=== PATIENT | female | born 1990 | race Caucasian/White ===

== ENCOUNTER 2016-06-19 17:45 | Emergency (ER) | payer MEDICARE, OTHER ==
[~2016-06-19] VITALS: Ht 154.9 cm; Wt 51.7 kg
[~2016-06-19 17:45] MED LIST: AZIT250T PO; GUAI120L35 PO
[2016-06-19 18:01] VITALS: BP 119/75
--- NOTE | 2016-06-19 18:45 | PHYS DOC ---
Past Medical History Past Medical History: GERD, Other Additional Past Medical Histor: ovarian cyst, cyst on spleen Past Surgical History: Other Additional Past Surgical Histo: left bone reconstruction; tubes in ears Additional Information: 1 CIGARETTE A DAY Alcohol Use: None Drug Use: None Adult General Chief Complaint Chief Complaint: SORE THROAT [facility] HPI Patient is a 26 year old female presents to emergency department with a sudden onset of nausea vomiting with a sore throat bilateral ear pain in which patient also states she's had a fever. She states that she did go to work today and was sent home. She states that she has vomited once. Patient states that she has not received the influenza vaccination for 2016. Patient also states that she has not taken anything for generalized body aches and discomfort or fever. She states her last menstrual period was last week. Review of Systems Review of Systems Constitutional: hx fever Eyes: Denies change in visual acuity, redness, or eye pain [] HENT: Denies nasal congestion C/o sore throat [] Respiratory: cough or shortness of breath [] Cardiovascular: No additional information not addressed in HPI [] GI: Denies abdominal pain, C/o nausea, vomiting, denies bloody stools or diarrhea [] : Denies dysuria or hematuria [] Musculoskeletal: Denies back pain or joint pain [] Integument: Denies rash or skin lesions [] Neurologic: Denies headache, focal weakness or sensory changes [] Current Medications Current Medications Current Medications Medications (Trade) Dose Ordered Sig/Deborah Start Time Stop Time Status Last Admin Dose Admin Ibuprofen (Motrin) 400 mg STK-MED ONCE 06/19/16 18:54 06/19/16 18:55 DC Ondansetron HCl (Zofran Odt) 4 mg 1X ONCE 06/19/16 19:00 06/19/16 19:01 DC 06/19/16 18:57 4 MG Allergies Allergies Allergies Coded Allergies Type Severity Reaction Last Updated Verified Sulfa (Sulfonamide Antibiotics) Allergy Intermediate hives 08/07/13 Yes Physical Exam Physical Exam Constitutional: Well developed, well nourished, no acute distress, non-toxic appearance. [] HENT: Normocephalic, atraumatic, bilateral external ears normal, oropharynx moist, no oral exudates, nose normal. Bilateral tympanic membranes appear to be normal. Throat with erythematous with drainage noted in the back patient with no tonsils noted. No uvula deviation noted. Patient with frontal and maxillary sinus tenderness. Eyes: PERRLA, EOMI, conjunctiva normal, no discharge. [] Neck: Normal range of motion, no tenderness, supple, no stridor. [] Cardiovascular:Heart rate regular rhythm, no murmur [] Lungs & Thorax: Bilateral breath sounds clear to auscultation [] Skin: Warm, dry, no erythema, no rash. [] Back: No tenderness Extremities: No tenderness, no cyanosis, no clubbing, ROM intact, no edema. [] Neurologic: Alert and oriented X 3, normal motor function, normal sensory function, no focal deficits noted. [] Psychologic: Affect normal, judgement normal, mood normal. [] Current Patient Data Vital Signs Vital Signs Date Time Temp Pulse Resp B/P Pulse Ox O2 Delivery O2 Flow Rate FiO2 06/19/16 18:01 96.4 112 24 119/75 100 Room Air 96.4 Lab Values Laboratory Tests Test 06/19/16 18:45 Influenza Type A Antigen Negative (NEGATIVE) Influenza Type B Antigen Negative (NEGATIVE) EKG EKG [] Radiology/Procedures Radiology/Procedures [] Course & Med Decision Making Course & Med Decision Making Pertinent Labs and Imaging studies reviewed. (See chart for details) Rapid Strep at this time is negative. Patient will be provided with an here in the emergency department ibuprofen as well. Influenza is pending at this time. She was provided with Zofran here in the emergency department and ibuprofen. She states that her nausea and vomiting seems to be a little better. She still complains of sinus pressure. She will be discharged home with Augmentin as well as Zofran. Recommended Sudafed to help with the sinus pressure also recommended Mucinex DM to help with the pressure as well to get everything draining. Also recommended plenty of fluids. Since symptoms to return back to emergency department as been provided. Patient agrees with discharge instructions treatment regimens and follow-up recommendations. [] Dragon Disclaimer Dragon Disclaimer This electronic medical record was generated, in whole or in part, using a voice recognition dictation system. Departure Departure Impression: Primary Impression: Sinusitis Additional Impression: Vomiting Disposition: HOME, SELF-CARE Condition: STABLE Referrals: NANDO CORDERO MD (PCP) Patient Instructions: Clear Liquid Diet, [id number], Nausea and Vomiting, [id number]-[id number], Sinusitis, [id number] Additional Instructions: Your influenza swabs were negative. Your provided with Zofran here in the emergency department for your nausea vomiting. Your being treated for sinusitis as well as nausea vomiting. Medications as prescribed. Tylenol or ibuprofen for fever chills or generalized body aches and discomfort. Sudafed to help with sinus pressure. Take this as directed by self propelled mining machine operator. Mucinex DM will also help with relieving some of the pressure feeling. Drink plenty of fluids Clear liquid diet for the next 24 hours. Follow-up primary care physician next 3-5 days. Return back to emergency prior signs symptoms of become worse. Scripts Amoxicillin/Potassium Clav (Augmentin 875-125 Tablet)1 Each Tablet1 Tab PO BID # 20 TAB Prov:ARCADIO PASTOR APRN 06/19/16 Ondansetron (Zofran Odt)4 Mg Tab.rapdis1 Tab SL Q8HRS #10 TAB Prov:ARCADIO APSTOR APRN 06/19/16 Problem Qualifiers ARCADIO PASTOR APRN Jun 19, 2016 18:45
[2016-06-19] MEDS ORDERED: IBUPROFEN 400 MG TABLET. PO ONE (18:54)
[2016-06-19] MEDS ORDERED: IBUPROFEN 800 MG TABLET. PO ONE (19:00)
[2016-06-19] MEDS ORDERED: ONDANSETRON ODT 4 MG TAB.RAPDIS. PO ONE (19:00)
[2016-06-19 19:11] LABS: OBC FLU VALID
[2016-06-19] MEDS ORDERED: ONDA4TAB10 SL (19:46)
[2016-06-19] MEDS ORDERED: AMOX1TAB61 PO (19:46)
[2016-06-20 07:38] LABS: NEGATIVE OBC STREP NEG; POSITIVE OBC STREP POS
== END 2016-06-19 19:51 | disposition home or self-care (01) ==
LOC: ER 17:45
DX: J32.1 Chronic frontal sinusitis (principal); J32.0 Chronic maxillary sinusitis; R11.2 Nausea with vomiting, unspecified; H92.03 Otalgia, bilateral; K21.9 Gastro-esophageal reflux disease without esophagitis; F17.210 Nicotine dependence, cigarettes, uncomplicated; Z88.2 Allergy status to sulfonamides
CPT/HCPCS: 87804; 87880; 99284; Q0162; 87070

== ENCOUNTER 2016-09-02 11:26 | Emergency (ER) | payer MEDICARE, OTHER ==
[~2016-09-02] VITALS: Ht 154.9 cm; Wt 54.4 kg
[~2016-09-02 11:26] MED LIST changes: +AMOX1TAB61 PO; +ONDA4TAB10 SL
[2016-09-02 12:56] VITALS: BP 113/71
[2016-09-02] MEDS ORDERED: IV NORMAL SALINE 1000ML BAG 1,620 ML IV SCH (12:58)
[2016-09-02] MEDS ORDERED: ACETAMINOPHEN 500 MG TABLET PO ONE (13:00)
[2016-09-02] MEDS ORDERED: IBUPROFEN 800 MG TABLET. PO ONE (13:00)
[2016-09-02 13:35] LABS: BASO % 0 % (0-3); EOS % 1 % (0-3); HEMOGLOBIN 13.7 g/dL (12.0-15.5); LYMPH # 0.8 x10^3/uL (1.0-4.8); LYMPH % 7 % (24-48); MEAN CORPUSCULAR HEMOGLOBIN 32 pg (25-35); MEAN CORPUSCULAR HGB CONC 34 g/dL (31-37); MEAN CORPUSCULAR VOLUME 93 fL (79-100); MONO % 16 % (0-9); NEUT % 76 % (31-73); PLATELET COUNT 215 x10^3/uL (140-400); RED BLOOD COUNT 4.31 x10^6/uL (3.50-5.40); RED CELL DISTRIBUTION WIDTH 12.1 % (11.5-14.5); WHITE BLOOD COUNT 10.3 x10^3/uL (4.0-11.0)
[2016-09-02 13:45] LABS: CALCIUM 9.1 mg/dL (8.5-10.1); CREATININE 0.6 mg/dL (0.6-1.0); GFR 120.8; POTASSIUM 4.4 mmol/L (3.5-5.1)
[2016-09-02 13:50] LABS: ALBUMIN/GLOBULIN RATIO 0.9 (1.0-1.7); TOTAL BILIRUBIN 0.8 mg/dL (0.2-1.0); TOTAL PROTEIN 8.3 g/dL (6.4-8.2)
[2016-09-02 13:57] LABS: NEGATIVE OBC MONO NEG; POSITIVE OBC MONO POS
[2016-09-02] MEDS ORDERED: PRED50TA PO (15:32)
--- NOTE | 2016-09-02 15:32 | PHYS DOC ---
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 Patient states since 2 AM this morning she's had sore throat, bilateral ear pain, generalized body aches including migraine headache and back pain. Patient denies any chance she is . Denies any coughing or congestion. Review of Systems Review of Systems Constitutional: Body aches Eyes: Denies change in visual acuity, redness, or eye pain [] HENT: Bilateral ear pain and sore throat [] Respiratory: Denies cough or shortness of breath [] Cardiovascular: No additional information not addressed in HPI [] GI: Denies abdominal pain, nausea, vomiting, bloody stools or diarrhea [] : Denies dysuria or hematuria [] Musculoskeletal: back pain Integument: Denies rash or skin lesions [] Neurologic: Denies headache, focal weakness or sensory changes [] Endocrine: Denies polyuria or polydipsia [] Current Medications Current Medications Current Medications Medications (Trade) Dose Ordered Sig/Deborah Start Time Stop Time Status Last Admin Dose Admin Acetaminophen (Tylenol) 1,000 mg 1X ONCE 09/02/16 13:00 09/02/16 13:06 DC 09/02/16 14:16 1,000 MG Ibuprofen (Motrin) 800 mg 1X ONCE 09/02/16 13:00 09/02/16 13:06 DC 09/02/16 14:16 800 MG Sodium Chloride 1,620 ml @ 1,620 mls/hr Q1H 09/02/16 12:58 09/02/16 13:57 DC 09/02/16 14:17 1,620 MLS/HR Allergies Allergies Allergies Coded Allergies Type Severity Reaction Last Updated Verified Sulfa (Sulfonamide Antibiotics) Allergy Intermediate hives 08/07/13 Yes Physical Exam Physical Exam Constitutional: Well developed, well nourished, no acute distress, non-toxic appearance. [] HENT: Normocephalic, atraumatic, bilateral external ears normal, oropharynx moist, no oral exudates, nose normal. [] posterior pharynx with mild erythema +1 posterior cervical adenopathy Eyes: PERRLA, EOMI, conjunctiva normal, no discharge. [] Neck: Normal range of motion, no tenderness, supple, no stridor. [] Cardiovascular:Heart rate regular rhythm, no murmur [] Lungs & Thorax: Bilateral breath sounds clear to auscultation [] Abdomen: Bowel sounds normal, soft, no tenderness, no masses, no pulsatile masses. [] Skin: Warm, dry, no erythema, no rash. [] Back: No tenderness, no CVA tenderness. [] Extremities: No tenderness, no cyanosis, no clubbing, ROM intact, no edema. [] Neurologic: Alert and oriented X 3, normal motor function, normal sensory function, no focal deficits noted. [] Psychologic: Affect normal, judgement normal, mood normal. [] Current Patient Data Vital Signs Vital Signs Date Time Temp Pulse Resp B/P (MAP) Pulse Ox O2 Delivery O2 Flow Rate FiO2 09/02/16 15:00 98.5 98.5 09/02/16 12:56 100 22 113/71 (85) 100 Room Air Lab Values Laboratory Tests Test 09/02/16 13:13 White Blood Count 10.3 x10^3/uL (4.0-11.0) Red Blood Count 4.31 x10^6/uL (3.50-5.40) Hemoglobin 13.7 g/dL (12.0-15.5) Hematocrit 40.0 % (36.0-47.0) Mean Corpuscular Volume 93 fL (79-100) Mean Corpuscular Hemoglobin 32 pg (25-35) Mean Corpuscular Hemoglobin Concent 34 g/dL (31-37) Red Cell Distribution Width 12.1 % (11.5-14.5) Platelet Count 215 x10^3/uL (140-400) Neutrophils (%) (Auto) 76 % (31-73) H Lymphocytes (%) (Auto) 7 % (24-48) L Monocytes (%) (Auto) 16 % (0-9) H Eosinophils (%) (Auto) 1 % (0-3) Basophils (%) (Auto) 0 % (0-3) Neutrophils # (Auto) 7.8 x10^3uL (1.8-7.7) H Lymphocytes # (Auto) 0.8 x10^3/uL (1.0-4.8) L Monocytes # (Auto) 1.6 x10^3/uL (0.0-1.1) H Eosinophils # (Auto) 0.1 x10^3/uL (0.0-0.7) Basophils # (Auto) 0.0 x10^3/uL (0.0-0.2) Sodium Level 137 mmol/L (136-145) Potassium Level 4.4 mmol/L (3.5-5.1) Chloride Level 99 mmol/L (98-107) Carbon Dioxide Level 27 mmol/L (21-32) Anion Gap 11 (6-14) Blood Urea Nitrogen 3 mg/dL (7-20) L Creatinine 0.6 mg/dL (0.6-1.0) Estimated GFR (Cockcroft-Gault) 120.8 BUN/Creatinine Ratio 5 (6-20) L Glucose Level 85 mg/dL (70-99) Lactic Acid Level 0.6 mmol/L (0.4-2.0) Calcium Level 9.1 mg/dL (8.5-10.1) Total Bilirubin 0.8 mg/dL (0.2-1.0) Aspartate Amino Transferase (AST) 19 U/L (15-37) Alanine Aminotransferase (ALT) 19 U/L (14-59) Alkaline Phosphatase 71 U/L (46-116) Total Protein 8.3 g/dL (6.4-8.2) H Albumin 4.0 g/dL (3.4-5.0) Albumin/Globulin Ratio 0.9 (1.0-1.7) L Procalcitonin < 0.10 ng/mL (0.00-0.10) Ethyl Alcohol Level < 10 mg/dL (0-10) Heterophil Agglutinins Positive (NEGATIVE) Laboratory Tests 09/02/16 13:13 Laboratory Tests 09/02/16 13:13 EKG EKG [] Radiology/Procedures Radiology/Procedures [] Course & Med Decision Making Course & Med Decision Making Pertinent Labs and Imaging studies reviewed. (See chart for details) Patient is in the ED with multiple complaints including sore throat, ear pain, body aches and backache. Patient had a temperature of 101.4 on arrival to the ED with a blood pressure 113/71 heart rate of 100. She was started on IV fluids. She was given Tylenol and Motrin. Negative rapid strep, positive mononucleosis. CBC no acute findings. BMP with no acute findings. Discharged with prednisone, and ibuprofen. Instructed to take Tylenol/Motrin for pain or fever. Instructed to push fluids. Recommended resting. Instructed patient not participate in any contact sports. Patient is to follow-up with the primary care doctor in one week. Dragon Disclaimer Dragon Disclaimer This electronic medical record was generated, in whole or in part, using a voice recognition dictation system. Departure Departure Impression: Primary Impression: Mononucleosis Additional Impressions: Fever Tachycardia Disposition: HOME, SELF-CARE Condition: STABLE Referrals: NANDO CORDERO MD (PCP) Follow-up with your doctor in 3-7 days Patient Instructions: Fever, Adult, [id number], Infectious Mononucleosis, Viral Pharyngitis Additional Instructions: You tested positive for mononucleosis. Do not participate in any contact sports because this infection can make enlarge your spleen and make it rapture. Take Tylenol Motrin for pain or fever. Push fluids. Follow-up with your doctor in the next 1 week. Come back to the ED symptoms worsen. Scripts Prednisone (PREDNISONE) 50 Mg Tablet 1 TAB PO DAILY, #5 TAB Prov: RJ LEAHY APRN 09/02/16 Problem Qualifiers Additional Impressions: Fever Fever type: unspecified Qualified Codes: R50.9 - Fever, unspecified RJ LEAHY APRN Sep 02, 2016 15:32
[2016-09-03 08:19] LABS: NEGATIVE OBC STREP NEG; POSITIVE OBC STREP POS
== END 2016-09-02 15:48 | disposition home or self-care (01) ==
LOC: ER 11:26
DX: B27.90 Infectious mononucleosis, unspecified without complication (principal); R00.0 Tachycardia, unspecified; H92.03 Otalgia, bilateral; K21.9 Gastro-esophageal reflux disease without esophagitis; G43.909 Migraine, unspecified, not intractable, without status migrainosus; J02.9 Acute pharyngitis, unspecified; Z96.22 Myringotomy tube(s) status; Z88.2 Allergy status to sulfonamides
CPT/HCPCS: 36415; 80053; 80320; 83605; 84145; 85027; 86308; 87040; 87070; 87880; 96360; 99284; J7030; G0480

== ENCOUNTER 2016-09-06 08:57 | Inpatient (IN) | payer MEDICARE, OTHER ==
[~2016-09-06] VITALS: Ht 154.9 cm; Wt 51.3 kg
[~2016-09-06 08:57] MED LIST changes: +PRED50TA PO
--- NOTE | 2016-09-06 09:09 | PHYS DOC ---
Past Medical History Past Medical History: GERD, Migraines, Other Additional Past Medical Histor: ovarian cyst, cyst on spleen Past Surgical History: Other Additional Past Surgical Histo: left bone reconstruction; tubes in ears Alcohol Use: None Drug Use: None Adult General Chief Complaint Chief Complaint: FEVER HPI HPI Patient is a 26 year old female who presents with rate she was just diagnosed with mono to 3 days ago and was discharged on prednisone 50 mg by mouth daily. She presents to ER complaining of sided abdominal pain, decreased appetite and weakness. According to mom she's not want to eat or drink she been running a fever over the last several days. Review of Systems Review of Systems Constitutional: As if her fever Eyes: Denies change in visual acuity, redness, or eye pain [] HENT: Denies nasal congestion or sore throat [] Respiratory: Denies cough or shortness of breath [] Cardiovascular: No additional information not addressed in HPI [] GI: Denies vomiting, bloody stools or diarrhea, positive for abdominal pain, nausea, : Denies dysuria or hematuria [] Musculoskeletal: Denies back pain or joint pain [] Integument: Denies rash or skin lesions [] Neurologic: Denies headache, focal weakness or sensory changes [] Endocrine: Denies polyuria or polydipsia [] Current Medications Current Medications Current Medications Medications (Trade) Dose Ordered Sig/Deborah Start Time Stop Time Status Last Admin Dose Admin Acetaminophen (Tylenol) 1,000 mg 1X ONCE 09/06/16 11:30 09/06/16 11:31 DC 09/06/16 11:18 1,000 MG Info (Do NOT chart on this entry -- for MONITORING) 1 each PRN DAILY PRN 09/06/16 10:00 09/08/16 09:59 Iohexol (Omnipaque 300 Mg/ml) 75 ml 1X ONCE 09/06/16 10:00 09/06/16 10:01 DC 09/06/16 09:56 75 ML Sodium Chloride 1,000 ml @ 1,000 mls/hr 1X ONCE 09/06/16 09:45 09/06/16 10:44 DC 09/06/16 09:45 1,000 MLS/HR Allergies Allergies Allergies Coded Allergies Type Severity Reaction Last Updated Verified Sulfa (Sulfonamide Antibiotics) Allergy Intermediate hives 08/07/13 Yes Physical Exam Physical Exam Constitutional: Well developed, well nourished, no acute distress, non-toxic appearance. [] HENT: Normocephalic, atraumatic, bilateral external ears normal, oropharynx moist, no oral exudates, nose normal. [] Eyes: PERRLA, EOMI, conjunctiva normal, no discharge. [] Neck: Normal range of motion, no tenderness, supple, no stridor. [] Cardiovascular:Heart rate regular rhythm, no murmur [] Lungs & Thorax: Bilateral breath sounds clear to auscultation [] Abdomen: Bowel sounds normal, soft, tender to palpation in the left quadrants without any rebound or guarding, no masses, no pulsatile masses. [] Skin: Warm, dry, no erythema, no rash. [] Back: No tenderness, no CVA tenderness. [] Extremities: No tenderness, no cyanosis, no clubbing, ROM intact, no edema. [] Neurologic: Alert and oriented X 3, normal motor function, normal sensory function, no focal deficits noted. [] Psychologic: Affect normal, judgement normal, mood normal. [] Current Patient Data Vital Signs Vital Signs Date Time Temp Pulse Resp B/P (MAP) Pulse Ox O2 Delivery O2 Flow Rate FiO2 09/06/16 09:31 101.8 54 20 73/39 (50) 98 Room Air 101.8 Lab Values Laboratory Tests Test 09/06/16 08:17 09/06/16 09:13 09/06/16 09:46 POC Urine HCG, Qualitative Hcg negative (Negative) Urine Collection Type Unknown Urine Color [place] Urine Clarity Clear Urine pH 6.0 Urine Specific [place] >=1.030 Urine Protein 30 mg/dL (NEG-TRACE) Urine Glucose (UA) Negative mg/dL (NEG) Urine Ketones (Stick) 40 mg/dL (NEG) Urine Blood Large (NEG) Urine Nitrite Negative (NEG) Urine Bilirubin Small (NEG) Urine Urobilinogen Dipstick 0.2 mg/dL (0.2 mg/dL) Urine Leukocyte Esterase Negative (NEG) Urine RBC 11-20 /HPF (0-2) Urine WBC 0 /HPF (0-4) Urine Squamous Epithelial Cells Mod /LPF Urine Bacteria 0 /HPF (0-FEW) Urine Mucus Marked /LPF White Blood Count 9.8 x10^3/uL (4.0-11.0) Red Blood Count 4.00 x10^6/uL (3.50-5.40) Hemoglobin 12.7 g/dL (12.0-15.5) Hematocrit 37.1 % (36.0-47.0) Mean Corpuscular Volume 93 fL (79-100) Mean Corpuscular Hemoglobin 32 pg (25-35) Mean Corpuscular Hemoglobin Concent 34 g/dL (31-37) Red Cell Distribution Width 12.3 % (11.5-14.5) Platelet Count 212 x10^3/uL (140-400) Neutrophils (%) (Auto) 68 % (31-73) Lymphocytes (%) (Auto) 11 % (24-48) L Monocytes (%) (Auto) 21 % (0-9) H Eosinophils (%) (Auto) 0 % (0-3) Basophils (%) (Auto) 0 % (0-3) Neutrophils # (Auto) 6.7 x10^3uL (1.8-7.7) Lymphocytes # (Auto) 1.0 x10^3/uL (1.0-4.8) Monocytes # (Auto) 2.1 x10^3/uL (0.0-1.1) H Eosinophils # (Auto) 0.0 x10^3/uL (0.0-0.7) Basophils # (Auto) 0.0 x10^3/uL (0.0-0.2) Platelet Estimate Pending Prothrombin Time 13.7 SEC (11.7-14.0) Prothrombin Time INR 1.1 (0.8-1.1) PTT 33 SEC (24-38) Sodium Level 138 mmol/L (136-145) Potassium Level 3.5 mmol/L (3.5-5.1) Chloride Level 100 mmol/L (98-107) Carbon Dioxide Level 33 mmol/L (21-32) H Anion Gap 5 (6-14) L Blood Urea Nitrogen 7 mg/dL (7-20) Creatinine 0.8 mg/dL (0.6-1.0) Estimated GFR (Cockcroft-Gault) 86.7 Glucose Level 90 mg/dL (70-99) Calcium Level 8.5 mg/dL (8.5-10.1) Total Bilirubin 0.3 mg/dL (0.2-1.0) Direct Bilirubin 0.1 mg/dL (0.0-0.2) Aspartate Amino Transferase (AST) 18 U/L (15-37) Alanine Aminotransferase (ALT) 18 U/L (14-59) Alkaline Phosphatase 58 U/L (46-116) Total Protein 7.1 g/dL (6.4-8.2) Albumin 3.1 g/dL (3.4-5.0) L Laboratory Tests 09/06/16 09:46 Laboratory Tests 09/06/16 09:46 EKG EKG [] Radiology/Procedures Radiology/Procedures [place] [id number] IMAGING REPORT Signed PATIENT: MATTHEW CHOI ACCOUNT: [id number] : 1990 LOCATION: ER AGE: 26 SEX: F EXAM STATUS: REG ER ORD. PHYSICIAN: MIGUEL MCMAHON MD REASON: fever PROCEDURE: PORTABLE CHEST 1V Indication: Fever and weakness. Time of exam 0947 hours. Correlation is made with prior study from 03/10/2013 FINDINGS: The heart size is normal. The lungs are clear. No pleural effusion or pneumothorax is identified. The pulmonary vascularity is normal. IMPRESSION: No acute abnormality detected. DICTATED and SIGNED BY: SIRISHA SMITH MD DATE: 09/06/16950 CC: MIGUEL MCMAHON MD; NANDO CORDERO MD ~ [address] [id number] IMAGING REPORT Signed PATIENT: MATTHEW CHOI ACCOUNT: [id number] : 1990 LOCATION: ER AGE: 26 SEX: F EXAM STATUS: REG ER ORD. PHYSICIAN: MIGUEL MCMAHON MD REASON: abd pain PROCEDURE: CT ABD PELV W/ IV CONTRST ONLY CT study of the abdomen and pelvis with contrast Clinical indications: Abdominal pain. Technique: After IV infusion of 75 cc of Omnipaque 300, helical CT scanning of the abdomen and pelvis was performed. No GI contrast was administered. This decreases the sensitivity to detect GI tract pathology. PQRS Compliance Statement: One or more of the following individualized dose reduction techniques were utilized for this examination: 1. Automated exposure control 2. Adjustment of the mA and/or kV according to patient size 3. Use of iterative reconstruction technique Comparison: August 07, 2013. Findings: The liver is normal. The spleen is not abnormally enlarged. Again seen is a hypodense nodule of the lateral aspect of the spleen which has not changed significantly in size. This may represent a hemangioma. The pancreas and gallbladder are normal. No extrahepatic biliary ductal dilatation is seen. No hydronephrosis or renal mass or hydroureter is seen. Urinary bladder is not distended. No uterine mass or fibroid is seen. The ovaries are not well delineated in this study given the fluid-filled bowel loops. No focal aneurysmal dilatation of the abdominal aorta is seen. No enlarged abdominal or pelvic lymphadenopathy is seen. The appendix is normal. The terminal ileum is unremarkable. No obstructive bowel pattern is evident. No bowel wall thickening is seen. No free air or free fluid or mesenteric inflammatory change is seen. No osteolytic process is seen. No lung base consolidation is seen. IMPRESSION: No acute abnormality of the abdomen or pelvis is evident. Stable hemangioma of the spleen. DICTATED and SIGNED BY: YANY CHAPARRO MD DATE: 09/06/16 1017 CC: MIGUEL MCMAHON MD; NANDO CORDERO MD ~ Impressions: Abdominal pain Mononucleosis Fever Weakness Course & Med Decision Making Course & Med Decision Making Pertinent Labs and Imaging studies reviewed. (See chart for details) She has a fever and received Tylenol, she received IV fluids, CT abdomen pelvis did not show any acute abdomen allergies. She's being admitted for her weakness and rehydration. Interim orders have been written. Dragon Disclaimer Dragon Disclaimer This electronic medical record was generated, in whole or in part, using a voice recognition dictation system. Departure Departure Impression: Primary Impression: Mononucleosis Additional Impression: Fever Admitting Physician: Mazin Hughes Condition: STABLE Referrals: NANDO CORDERO MD (PCP) Problem Qualifiers Additional Impression: Fever Fever type: unspecified Qualified Codes: R50.9 - Fever, unspecified MIGUEL MCMAHON MD Sep 06, 2016 09:09
[2016-09-06 09:37] LABS: BILIRUBIN,URINE SMALL (NEG); GLUCOSE,URINE NEGATIVE (NEG); NITRITE,URINE NEGATIVE (NEG); PROTEIN,URINE 30 mg/dL (NEG-TRACE); UROBILINOGEN,URINE 0.2 mg/dL (0.2 mg/dL)
[2016-09-06] MEDS ORDERED: IV NORMAL SALINE 1000ML BAG 1,000 ML IV ONE (09:45)
--- NOTE | 2016-09-06 09:54 | RAD ---
Indication: Fever and weakness. Time of exam 0947 hours. Correlation is made with prior study from 03/10/2013 FINDINGS: The heart size is normal. The lungs are clear. No pleural effusion or pneumothorax is identified. The pulmonary vascularity is normal. IMPRESSION: No acute abnormality detected.
[2016-09-06 09:55] LABS: BASO % 0 % (0-3); EOS % 0 % (0-3); HEMATOCRIT 37.1 % (36.0-47.0); HEMOGLOBIN 12.7 g/dL (12.0-15.5); LYMPH % 11 % (24-48); MEAN CORPUSCULAR HEMOGLOBIN 32 pg (25-35); MEAN CORPUSCULAR HGB CONC 34 g/dL (31-37); MEAN CORPUSCULAR VOLUME 93 fL (79-100); MONO % 21 % (0-9); NEUT % 68 % (31-73); PLATELET COUNT 212 x10^3/uL (140-400); RED CELL DISTRIBUTION WIDTH 12.3 % (11.5-14.5); WHITE BLOOD COUNT 9.8 x10^3/uL (4.0-11.0)
[2016-09-06 09:56] LABS: BACTERIA,URINE 0 /HPF (0-FEW); SQUAMOUS EPITHELIAL CELL,UR MOD /LPF; WBC,URINE 0 /HPF (0-4)
[2016-09-06] MEDS ORDERED: CONTRAST GIVEN MC PRN (10:00)
[2016-09-06] MEDS ORDERED: IOHEXOL 300 MG/ML 75 ML VIAL IV ONE (10:00)
[2016-09-06 10:02] LABS: CALCIUM 8.5 mg/dL (8.5-10.1); CREATININE 0.8 mg/dL (0.6-1.0); GFR 86.7; POTASSIUM 3.5 mmol/L (3.5-5.1)
[2016-09-06 10:08] LABS: ALBUMIN 3.1 g/dL (3.4-5.0); DIRECT BILIRUBIN 0.1 mg/dL (0.0-0.2); TOTAL BILIRUBIN 0.3 mg/dL (0.2-1.0); TOTAL PROTEIN 7.1 g/dL (6.4-8.2)
[2016-09-06 10:19] LABS: INR 1.1 (0.8-1.1); PROTHROMBIN TIME PATIENT 13.7 SEC (11.7-14.0)
--- NOTE | 2016-09-06 10:44 | RAD ---
CT study of the abdomen and pelvis with contrast Clinical indications: Abdominal pain. Technique: After IV infusion of 75 cc of Omnipaque 300, helical CT scanning of the abdomen and pelvis was performed. No GI contrast was administered. This decreases the sensitivity to detect GI tract pathology. PQRS Compliance Statement: One or more of the following individualized dose reduction techniques were utilized for this examination: 1. Automated exposure control 2. Adjustment of the mA and/or kV according to patient size 3. Use of iterative reconstruction technique Comparison: August 07, 2013. Findings: The liver is normal. The spleen is not abnormally enlarged. Again seen is a hypodense nodule of the lateral aspect of the spleen which has not changed significantly in size. This may represent a hemangioma. The pancreas and gallbladder are normal. No extrahepatic biliary ductal dilatation is seen. No hydronephrosis or renal mass or hydroureter is seen. Urinary bladder is not distended. No uterine mass or fibroid is seen. The ovaries are not well delineated in this study given the fluid-filled bowel loops. No focal aneurysmal dilatation of the abdominal aorta is seen. No enlarged abdominal or pelvic lymphadenopathy is seen. The appendix is normal. The terminal ileum is unremarkable. No obstructive bowel pattern is evident. No bowel wall thickening is seen. No free air or free fluid or mesenteric inflammatory change is seen. No osteolytic process is seen. No lung base consolidation is seen. IMPRESSION: No acute abnormality of the abdomen or pelvis is evident. Stable hemangioma of the spleen.
[2016-09-06] MEDS ORDERED: ACETAMINOPHEN 500 MG TABLET PO ONE (11:30)
[2016-09-06] MEDS ORDERED: IV DEXTROSE 5 %-0.45 % NACL 1,000 ML IV ONE (12:15)
[2016-09-06] MEDS ORDERED: ONDANSETRON PF 4 MG/2 ML VIAL. IV PRN ×2 (12:15→14:15)
[2016-09-06] MEDS ORDERED: fentaNYL PF VIAL 100 MCG/2 ML VIAL IV PRN (12:15)
[2016-09-06 12:32] LABS: PLT ESTIMATE ADEQUATE (ADEQUATE)
[2016-09-06] MEDS ORDERED: hydrALAZINE 20 MG/ML VIAL. IVP PRN (14:15)
[2016-09-06] MEDS ORDERED: BENZOCAINE/MENTHOL LOZENGE. PO PRN (14:15)
[2016-09-06] MEDS ORDERED: MORPHINE SULFATE 2 MG/ML DISP.SYRIN. IV PRN (14:15)
[2016-09-06] MEDS ORDERED: DOCUSATE SODIUM 100 MG CAPSULE. PO PRN (14:15)
--- NOTE | 2016-09-06 14:26 | PDOC1 ---
History and Physical Date of Admission Date of Admission 09/06/16 Identification/Chief Complaint Chief Complaint fever, sore throat, body ache Problems: Source Source: Caregiver, Chart review, Patient History of Present Illness History of Present Illness Patient is a 26 year old female came here for fever, sore throat and body ache for 3-4 days. Pt was here in ER for same reason, fever 102, + mono, neg flu and strep rapid test. She was given prednisone 50mg daily and didnot help. Pt feels cont body ache, hard to swallow food, low appetite, T 101.8 in ER, BP 70s. Past Medical History Cardiovascular: No pertinent hx GI: No pertinent hx Heme/Onc: No pertinent hx Hepatobiliary: No pertinent hx Psych: No pertinent hx Rheumatologic: No pertinent hx Infectious disease: No pertinent hx Renal/: No pertinent hx Endocrine: No pertinent hx Past Surgical History Past Surgical History: No pertinent history Family History Family History: Hypertension, Other Social History Smoke: No ALCOHOL: none Drugs: None Current Problem List Problem List Problems Medical Problems: (1) Fever Status: Acute (2) Mononucleosis Status: Acute Current Medications Current Medications Current Medications Medications (Trade) Dose Ordered Sig/Deborah Start Time Stop Time Status Last Admin Dose Admin Acetaminophen (Tylenol) 1,000 mg 1X ONCE 09/06/16 11:30 09/06/16 11:31 DC 09/06/16 11:18 1,000 MG Dextrose/Sodium Chloride 1,000 ml @ 100 mls/hr 1X ONCE 09/06/16 12:15 09/06/16 22:14 09/06/16 12:15 100 MLS/HR Fentanyl Citrate (Fentanyl 2ml Vial) 50 mcg PRN Q2HR PRN 09/06/16 12:15 09/07/16 12:14 Info (Do NOT chart on this entry -- for MONITORING) 1 each PRN DAILY PRN 09/06/16 10:00 09/08/16 09:59 Iohexol (Omnipaque 300 Mg/ml) 75 ml 1X ONCE 09/06/16 10:00 09/06/16 10:01 DC 09/06/16 09:56 75 ML Ondansetron HCl (Zofran) 4 mg PRN Q8HRS PRN 09/06/16 12:15 09/07/16 12:14 Sodium Chloride 1,000 ml @ 1,000 mls/hr 1X ONCE 09/06/16 09:45 09/06/16 10:44 DC 09/06/16 09:45 1,000 MLS/HR Allergies Allergies Allergies Coded Allergies Type Severity Reaction Last Updated Verified Sulfa (Sulfonamide Antibiotics) Allergy Intermediate hives 08/07/13 Yes ROS Review of System CONSTITUTIONAL: No fever or chills EYES: No recent changes SKIN: No rash or itching CARDIOVASCULAR: No chest pain, syncope, palpitations, or edema RESPIRATORY: No SOB or cough GASTROINTESTINAL: No nausea, vomiting or abdominal pain NEUROLOGICAL: No headaches or weakness ENDOCRINE: No cold or heat intolerance GENITOURINARY: No urgency or frequency of urination MUSCULOSKELETAL: No back pain or joint pain LYMPHATICS: No enlarged lymph nodes PSYCHIATRIC: No anxiety or depression Physical Exam Physical Exam GEN.: No apparent distress. Alert and oriented. HEENT: Head is normocephalic, atraumatic. throat has erythematous tonsil with some white exudates NECK: Supple. LUNGS: Clear to auscultation. HEART: RRR, S1, S2 present. Peripheral pulses intact ABDOMEN: Soft, nontender. Positive bowel sounds. EXTREMITIES: Without any cyanosis. NEUROLOGIC: Normal speech, normal tone PSYCHIATRIC: Normal affect, normal mood. SKIN: No ulcerations Vitals Vitals Vital Signs Date Time Temp Pulse Resp B/P (MAP) Pulse Ox O2 Delivery O2 Flow Rate FiO2 09/06/16 12:18 90 98/53 (68) 09/06/16 09:31 101.8 20 98 Room Air 101.8 Labs Labs Laboratory Tests Test 09/06/16 08:17 09/06/16 09:13 09/06/16 09:46 Bedside Urine HCG, Qualitative Hcg negative (Negative) Urine Collection Type Unknown Urine Color [place]bi Urine Clarity Clear Urine pH 6.0 Urine Specific [place] >=1.030 Urine Protein 30 mg/dL (NEG-TRACE) Urine Glucose (UA) Negative mg/dL (NEG) Urine Ketones (Stick) 40 mg/dL (NEG) Urine Blood Large (NEG) Urine Nitrite Negative (NEG) Urine Bilirubin Small (NEG) Urine Urobilinogen Dipstick 0.2 mg/dL (0.2 mg/dL) Urine Leukocyte Esterase Negative (NEG) Urine RBC 11-20 /HPF (0-2) Urine WBC 0 /HPF (0-4) Urine Squamous Epithelial Cells Mod /LPF Urine Bacteria 0 /HPF (0-FEW) Urine Mucus Marked /LPF White Blood Count 9.8 x10^3/uL (4.0-11.0) Red Blood Count 4.00 x10^6/uL (3.50-5.40) Hemoglobin 12.7 g/dL (12.0-15.5) Hematocrit 37.1 % (36.0-47.0) Mean Corpuscular Volume 93 fL (79-100) Mean Corpuscular Hemoglobin 32 pg (25-35) Mean Corpuscular Hemoglobin Concent 34 g/dL (31-37) Red Cell Distribution Width 12.3 % (11.5-14.5) Platelet Count 212 x10^3/uL (140-400) Neutrophils (%) (Auto) 68 % (31-73) Lymphocytes (%) (Auto) 11 % (24-48) Monocytes (%) (Auto) 21 % (0-9) Eosinophils (%) (Auto) 0 % (0-3) Basophils (%) (Auto) 0 % (0-3) Neutrophils # (Auto) 6.7 x10^3uL (1.8-7.7) Lymphocytes # (Auto) 1.0 x10^3/uL (1.0-4.8) Monocytes # (Auto) 2.1 x10^3/uL (0.0-1.1) Eosinophils # (Auto) 0.0 x10^3/uL (0.0-0.7) Basophils # (Auto) 0.0 x10^3/uL (0.0-0.2) Segmented Neutrophils % 40 % (35-66) Band Neutrophils % 18 % (0-9) Lymphocytes % 21 % (24-48) Monocytes % 21 % (0-10) Platelet Estimate Adequate (ADEQUATE) Prothrombin Time 13.7 SEC (11.7-14.0) Prothromb Time International Ratio 1.1 (0.8-1.1) Activated Partial Thromboplast Time 33 SEC (24-38) Sodium Level 138 mmol/L (136-145) Potassium Level 3.5 mmol/L (3.5-5.1) Chloride Level 100 mmol/L (98-107) Carbon Dioxide Level 33 mmol/L (21-32) Anion Gap 5 (6-14) Blood Urea Nitrogen 7 mg/dL (7-20) Creatinine 0.8 mg/dL (0.6-1.0) Estimated GFR (Cockcroft-Gault) 86.7 Glucose Level 90 mg/dL (70-99) Calcium Level 8.5 mg/dL (8.5-10.1) Total Bilirubin 0.3 mg/dL (0.2-1.0) Direct Bilirubin 0.1 mg/dL (0.0-0.2) Aspartate Amino Transf (AST/SGOT) 18 U/L (15-37) Alanine Aminotransferase (ALT/SGPT) 18 U/L (14-59) Alkaline Phosphatase 58 U/L (46-116) Total Protein 7.1 g/dL (6.4-8.2) Albumin 3.1 g/dL (3.4-5.0) Laboratory Tests Test 09/06/16 08:17 09/06/16 09:13 09/06/16 09:46 Bedside Urine HCG, Qualitative Hcg negative (Negative) Urine Collection Type Unknown Urine Color [place] Urine Clarity Clear Urine pH 6.0 Urine Specific [place] >=1.030 Urine Protein 30 mg/dL (NEG-TRACE) Urine Glucose (UA) Negative mg/dL (NEG) Urine Ketones (Stick) 40 mg/dL (NEG) Urine Blood Large (NEG) Urine Nitrite Negative (NEG) Urine Bilirubin Small (NEG) Urine Urobilinogen Dipstick 0.2 mg/dL (0.2 mg/dL) Urine Leukocyte Esterase Negative (NEG) Urine RBC 11-20 /HPF (0-2) Urine WBC 0 /HPF (0-4) Urine Squamous Epithelial Cells Mod /LPF Urine Bacteria 0 /HPF (0-FEW) Urine Mucus Marked /LPF White Blood Count 9.8 x10^3/uL (4.0-11.0) Red Blood Count 4.00 x10^6/uL (3.50-5.40) Hemoglobin 12.7 g/dL (12.0-15.5) Hematocrit 37.1 % (36.0-47.0) Mean Corpuscular Volume 93 fL (79-100) Mean Corpuscular Hemoglobin 32 pg (25-35) Mean Corpuscular Hemoglobin Concent 34 g/dL (31-37) Red Cell Distribution Width 12.3 % (11.5-14.5) Platelet Count 212 x10^3/uL (140-400) Neutrophils (%) (Auto) 68 % (31-73) Lymphocytes (%) (Auto) 11 % (24-48) Monocytes (%) (Auto) 21 % (0-9) Eosinophils (%) (Auto) 0 % (0-3) Basophils (%) (Auto) 0 % (0-3) Neutrophils # (Auto) 6.7 x10^3uL (1.8-7.7) Lymphocytes # (Auto) 1.0 x10^3/uL (1.0-4.8) Monocytes # (Auto) 2.1 x10^3/uL (0.0-1.1) Eosinophils # (Auto) 0.0 x10^3/uL (0.0-0.7) Basophils # (Auto) 0.0 x10^3/uL (0.0-0.2) Segmented Neutrophils % 40 % (35-66) Band Neutrophils % 18 % (0-9) Lymphocytes % 21 % (24-48) Monocytes % 21 % (0-10) Platelet Estimate Adequate (ADEQUATE) Prothrombin Time 13.7 SEC (11.7-14.0) Prothromb Time International Ratio 1.1 (0.8-1.1) Activated Partial Thromboplast Time 33 SEC (24-38) Sodium Level 138 mmol/L (136-145) Potassium Level 3.5 mmol/L (3.5-5.1) Chloride Level 100 mmol/L (98-107) Carbon Dioxide Level 33 mmol/L (21-32) Anion Gap 5 (6-14) Blood Urea Nitrogen 7 mg/dL (7-20) Creatinine 0.8 mg/dL (0.6-1.0) Estimated GFR (Cockcroft-Gault) 86.7 Glucose Level 90 mg/dL (70-99) Calcium Level 8.5 mg/dL (8.5-10.1) Total Bilirubin 0.3 mg/dL (0.2-1.0) Direct Bilirubin 0.1 mg/dL (0.0-0.2) Aspartate Amino Transf (AST/SGOT) 18 U/L (15-37) Alanine Aminotransferase (ALT/SGPT) 18 U/L (14-59) Alkaline Phosphatase 58 U/L (46-116) Total Protein 7.1 g/dL (6.4-8.2) Albumin 3.1 g/dL (3.4-5.0) VTE Prophylaxis Ordered VTE Prophylaxis Devices: Yes VTE Pharmacological Prophylaxi: Yes Assessment/Plan Assessment/Plan mononucleosis with sore throat, fever, body ache hypotension, 2/2 hypovolemia likely SIRS with mono plan: strep pcp, neg swab ivf full liquid solumedrol bid cepasol lozenge pain control dvt ppx no abx for now DARNELL SHAFFER MD Sep 06, 2016 14:26
[2016-09-06 15:00] VITALS: BP 97/58
[2016-09-06] MEDS: methylPREDNISolone SOD SUCC PF 40 MG/ML VIAL. IV SCH ×2 (15:08→21:37)
[2016-09-06] MEDS: IV NORMAL SALINE 1000ML BAG 1,000 ML IV SCH ×2 (15:08→21:38)
[2016-09-06] MEDS: guaiFENesin/CODEINE 100mg/10mg 5 ML LIQUID PO SCH ×2 (15:09→21:37)
[2016-09-06] MEDS: ENOXAPARIN 40 MG/0.4 ML SYRINGE. SQ SCH (15:09)
[2016-09-06] MEDS: traMADol 50 MG TABLET PO PRN (15:10)
[2016-09-06] MEDS: ACETAMINOPHEN 325 MG TABLET. PO PRN (17:20)
[2016-09-06 18:36] LABS: NEGATIVE OBC STREP NEG; POSITIVE OBC STREP POS
[2016-09-06 19:00] VITALS: BP 97/62
[2016-09-06] MEDS ORDERED: AMOXICILLIN/K CLAV 875/125MG TABLET. PO SCH (21:00)
[2016-09-06 23:00] VITALS: BP 94/54
[2016-09-07 03:00] VITALS: BP 98/62
[2016-09-07] MEDS: guaiFENesin/CODEINE 100mg/10mg 5 ML LIQUID PO SCH ×3 (05:44→21:34)
[2016-09-07 07:00] VITALS: BP 98/63
[2016-09-07 07:41] LABS: BASO % 0 % (0-3); EOS % 0 % (0-3); HEMATOCRIT 37.9 % (36.0-47.0); HEMOGLOBIN 12.6 g/dL (12.0-15.5); LYMPH # 0.8 x10^3/uL (1.0-4.8); LYMPH % 9 % (24-48); MEAN CORPUSCULAR HEMOGLOBIN 31 pg (25-35); MEAN CORPUSCULAR HGB CONC 33 g/dL (31-37); MEAN CORPUSCULAR VOLUME 93 fL (79-100); MONO % 7 % (0-9); NEUT % 84 % (31-73); PLATELET COUNT 207 x10^3/uL (140-400); RED BLOOD COUNT 4.06 x10^6/uL (3.50-5.40); RED CELL DISTRIBUTION WIDTH 12.3 % (11.5-14.5); WHITE BLOOD COUNT 8.7 x10^3/uL (4.0-11.0)
[2016-09-07 07:50] LABS: CALCIUM 8.6 mg/dL (8.5-10.1); CREATININE 0.5 mg/dL (0.6-1.0); GFR 149.1; POTASSIUM 3.9 mmol/L (3.5-5.1)
[2016-09-07] MEDS: methylPREDNISolone SOD SUCC PF 40 MG/ML VIAL. IV SCH ×2 (08:01→21:34)
[2016-09-07] MEDS ORDERED: NON FORMULARY ITEM (Prednisone 1 TAB) PO SCH (09:00)
--- NOTE | 2016-09-07 09:41 | PDOC ---
PROGRESS NOTES Chief Complaint Chief Complaint mononucleosis with sore throat, fever, body ache hypotension, 2/2 hypovolemia likely SIRS with mono sore throat, appearance of strep, cx pending, rapid strep neg History of Present Illness History of Present Illness plan: strep pcp, neg swab ivf full liquid solumedrol bid cepasol lozenge pain control dvt ppx no abx for now Vitals Vitals Vital Signs Date Time Temp Pulse Resp B/P (MAP) Pulse Ox O2 Delivery O2 Flow Rate FiO2 09/07/16 07:00 98.1 82 18 98/63 (75) 99 Room Air 98.1 Physical Exam Physical Exam erythema to post pharynx, with swollen tonsils with white exudate in patches General: Alert, Oriented X3, Cooperative, mild distress Heart: Regular rate Lungs: Clear, Wheezing Abdomen: Normal bowel sounds Extremities: No clubbing, No cyanosis Labs LABS Laboratory Tests Test 09/06/16 09:46 09/06/16 15:19 09/07/16 06:45 White Blood Count 9.8 x10^3/uL (4.0-11.0) 8.7 x10^3/uL (4.0-11.0) Red Blood Count 4.00 x10^6/uL (3.50-5.40) 4.06 x10^6/uL (3.50-5.40) Hemoglobin 12.7 g/dL (12.0-15.5) 12.6 g/dL (12.0-15.5) Hematocrit 37.1 % (36.0-47.0) 37.9 % (36.0-47.0) Mean Corpuscular Volume 93 fL (79-100) 93 fL (79-100) Mean Corpuscular Hemoglobin 32 pg (25-35) 31 pg (25-35) Mean Corpuscular Hemoglobin Concent 34 g/dL (31-37) 33 g/dL (31-37) Red Cell Distribution Width 12.3 % (11.5-14.5) 12.3 % (11.5-14.5) Platelet Count 212 x10^3/uL (140-400) 207 x10^3/uL (140-400) Neutrophils (%) (Auto) 68 % (31-73) 84 % (31-73) Lymphocytes (%) (Auto) 11 % (24-48) 9 % (24-48) Monocytes (%) (Auto) 21 % (0-9) 7 % (0-9) Eosinophils (%) (Auto) 0 % (0-3) 0 % (0-3) Basophils (%) (Auto) 0 % (0-3) 0 % (0-3) Neutrophils # (Auto) 6.7 x10^3uL (1.8-7.7) 7.3 x10^3uL (1.8-7.7) Lymphocytes # (Auto) 1.0 x10^3/uL (1.0-4.8) 0.8 x10^3/uL (1.0-4.8) Monocytes # (Auto) 2.1 x10^3/uL (0.0-1.1) 0.6 x10^3/uL (0.0-1.1) Eosinophils # (Auto) 0.0 x10^3/uL (0.0-0.7) 0.0 x10^3/uL (0.0-0.7) Basophils # (Auto) 0.0 x10^3/uL (0.0-0.2) 0.0 x10^3/uL (0.0-0.2) Segmented Neutrophils % 40 % (35-66) Band Neutrophils % 18 % (0-9) Lymphocytes % 21 % (24-48) Monocytes % 21 % (0-10) Platelet Estimate Adequate (ADEQUATE) Prothrombin Time 13.7 SEC (11.7-14.0) Prothromb Time International Ratio 1.1 (0.8-1.1) Activated Partial Thromboplast Time 33 SEC (24-38) Sodium Level 138 mmol/L (136-145) 140 mmol/L (136-145) Potassium Level 3.5 mmol/L (3.5-5.1) 3.9 mmol/L (3.5-5.1) Chloride Level 100 mmol/L (98-107) 103 mmol/L (98-107) Carbon Dioxide Level 33 mmol/L (21-32) 30 mmol/L (21-32) Anion Gap 5 (6-14) 7 (6-14) Blood Urea Nitrogen 7 mg/dL (7-20) 7 mg/dL (7-20) Creatinine 0.8 mg/dL (0.6-1.0) 0.5 mg/dL (0.6-1.0) Estimated GFR (Cockcroft-Gault) 86.7 149.1 Glucose Level 90 mg/dL (70-99) 119 mg/dL (70-99) Calcium Level 8.5 mg/dL (8.5-10.1) 8.6 mg/dL (8.5-10.1) Total Bilirubin 0.3 mg/dL (0.2-1.0) Direct Bilirubin 0.1 mg/dL (0.0-0.2) Aspartate Amino Transf (AST/SGOT) 18 U/L (15-37) Alanine Aminotransferase (ALT/SGPT) 18 U/L (14-59) Alkaline Phosphatase 58 U/L (46-116) Total Protein 7.1 g/dL (6.4-8.2) Albumin 3.1 g/dL (3.4-5.0) Group A Streptococcus Rapid Negative (NEGATIVE) Review of Systems Review of Systems poor po intake myalgia and weakness sore throat does not feel able to DC home, cannot eat well Assessment and Plan Assessmemt and Plan Problems Medical Problems: (1) Fever Status: Acute (2) Mononucleosis Status: Acute Problems: Comment Review of Relevant I have reviewed the following items isaac (where applicable) has been applied. Labs Laboratory Tests Test 09/06/16 08:17 09/06/16 09:13 09/06/16 09:46 09/06/16 15:19 Bedside Urine HCG, Qualitative Hcg negative (Negative) Urine Collection Type Unknown Urine Color [place]bi Urine Clarity Clear Urine pH 6.0 Urine Specific [place] >=1.030 Urine Protein 30 mg/dL (NEG-TRACE) Urine Glucose (UA) Negative mg/dL (NEG) Urine Ketones (Stick) 40 mg/dL (NEG) Urine Blood Large (NEG) Urine Nitrite Negative (NEG) Urine Bilirubin Small (NEG) Urine Urobilinogen Dipstick 0.2 mg/dL (0.2 mg/dL) Urine Leukocyte Esterase Negative (NEG) Urine RBC 11-20 /HPF (0-2) Urine WBC 0 /HPF (0-4) Urine Squamous Epithelial Cells Mod /LPF Urine Bacteria 0 /HPF (0-FEW) Urine Mucus Marked /LPF White Blood Count 9.8 x10^3/uL (4.0-11.0) Red Blood Count 4.00 x10^6/uL (3.50-5.40) Hemoglobin 12.7 g/dL (12.0-15.5) Hematocrit 37.1 % (36.0-47.0) Mean Corpuscular Volume 93 fL (79-100) Mean Corpuscular Hemoglobin 32 pg (25-35) Mean Corpuscular Hemoglobin Concent 34 g/dL (31-37) Red Cell Distribution Width 12.3 % (11.5-14.5) Platelet Count 212 x10^3/uL (140-400) Neutrophils (%) (Auto) 68 % (31-73) Lymphocytes (%) (Auto) 11 % (24-48) Monocytes (%) (Auto) 21 % (0-9) Eosinophils (%) (Auto) 0 % (0-3) Basophils (%) (Auto) 0 % (0-3) Neutrophils # (Auto) 6.7 x10^3uL (1.8-7.7) Lymphocytes # (Auto) 1.0 x10^3/uL (1.0-4.8) Monocytes # (Auto) 2.1 x10^3/uL (0.0-1.1) Eosinophils # (Auto) 0.0 x10^3/uL (0.0-0.7) Basophils # (Auto) 0.0 x10^3/uL (0.0-0.2) Segmented Neutrophils % 40 % (35-66) Band Neutrophils % 18 % (0-9) Lymphocytes % 21 % (24-48) Monocytes % 21 % (0-10) Platelet Estimate Adequate (ADEQUATE) Prothrombin Time 13.7 SEC (11.7-14.0) Prothromb Time International Ratio 1.1 (0.8-1.1) Activated Partial Thromboplast Time 33 SEC (24-38) Sodium Level 138 mmol/L (136-145) Potassium Level 3.5 mmol/L (3.5-5.1) Chloride Level 100 mmol/L (98-107) Carbon Dioxide Level 33 mmol/L (21-32) Anion Gap 5 (6-14) Blood Urea Nitrogen 7 mg/dL (7-20) Creatinine 0.8 mg/dL (0.6-1.0) Estimated GFR (Cockcroft-Gault) 86.7 Glucose Level 90 mg/dL (70-99) Calcium Level 8.5 mg/dL (8.5-10.1) Total Bilirubin 0.3 mg/dL (0.2-1.0) Direct Bilirubin 0.1 mg/dL (0.0-0.2) Aspartate Amino Transf (AST/SGOT) 18 U/L (15-37) Alanine Aminotransferase (ALT/SGPT) 18 U/L (14-59) Alkaline Phosphatase 58 U/L (46-116) Total Protein 7.1 g/dL (6.4-8.2) Albumin 3.1 g/dL (3.4-5.0) Group A Streptococcus Rapid Negative (NEGATIVE) Test 09/07/16 06:45 White Blood Count 8.7 x10^3/uL (4.0-11.0) Red Blood Count 4.06 x10^6/uL (3.50-5.40) Hemoglobin 12.6 g/dL (12.0-15.5) Hematocrit 37.9 % (36.0-47.0) Mean Corpuscular Volume 93 fL (79-100) Mean Corpuscular Hemoglobin 31 pg (25-35) Mean Corpuscular Hemoglobin Concent 33 g/dL (31-37) Red Cell Distribution Width 12.3 % (11.5-14.5) Platelet Count 207 x10^3/uL (140-400) Neutrophils (%) (Auto) 84 % (31-73) Lymphocytes (%) (Auto) 9 % (24-48) Monocytes (%) (Auto) 7 % (0-9) Eosinophils (%) (Auto) 0 % (0-3) Basophils (%) (Auto) 0 % (0-3) Neutrophils # (Auto) 7.3 x10^3uL (1.8-7.7) Lymphocytes # (Auto) 0.8 x10^3/uL (1.0-4.8) Monocytes # (Auto) 0.6 x10^3/uL (0.0-1.1) Eosinophils # (Auto) 0.0 x10^3/uL (0.0-0.7) Basophils # (Auto) 0.0 x10^3/uL (0.0-0.2) Sodium Level 140 mmol/L (136-145) Potassium Level 3.9 mmol/L (3.5-5.1) Chloride Level 103 mmol/L (98-107) Carbon Dioxide Level 30 mmol/L (21-32) Anion Gap 7 (6-14) Blood Urea Nitrogen 7 mg/dL (7-20) Creatinine 0.5 mg/dL (0.6-1.0) Estimated GFR (Cockcroft-Gault) 149.1 Glucose Level 119 mg/dL (70-99) Calcium Level 8.6 mg/dL (8.5-10.1) Laboratory Tests Test 09/06/16 09:46 09/06/16 15:19 09/07/16 06:45 White Blood Count 9.8 x10^3/uL (4.0-11.0) 8.7 x10^3/uL (4.0-11.0) Red Blood Count 4.00 x10^6/uL (3.50-5.40) 4.06 x10^6/uL (3.50-5.40) Hemoglobin 12.7 g/dL (12.0-15.5) 12.6 g/dL (12.0-15.5) Hematocrit 37.1 % (36.0-47.0) 37.9 % (36.0-47.0) Mean Corpuscular Volume 93 fL (79-100) 93 fL (79-100) Mean Corpuscular Hemoglobin 32 pg (25-35) 31 pg (25-35) Mean Corpuscular Hemoglobin Concent 34 g/dL (31-37) 33 g/dL (31-37) Red Cell Distribution Width 12.3 % (11.5-14.5) 12.3 % (11.5-14.5) Platelet Count 212 x10^3/uL (140-400) 207 x10^3/uL (140-400) Neutrophils (%) (Auto) 68 % (31-73) 84 % (31-73) Lymphocytes (%) (Auto) 11 % (24-48) 9 % (24-48) Monocytes (%) (Auto) 21 % (0-9) 7 % (0-9) Eosinophils (%) (Auto) 0 % (0-3) 0 % (0-3) Basophils (%) (Auto) 0 % (0-3) 0 % (0-3) Neutrophils # (Auto) 6.7 x10^3uL (1.8-7.7) 7.3 x10^3uL (1.8-7.7) Lymphocytes # (Auto) 1.0 x10^3/uL (1.0-4.8) 0.8 x10^3/uL (1.0-4.8) Monocytes # (Auto) 2.1 x10^3/uL (0.0-1.1) 0.6 x10^3/uL (0.0-1.1) Eosinophils # (Auto) 0.0 x10^3/uL (0.0-0.7) 0.0 x10^3/uL (0.0-0.7) Basophils # (Auto) 0.0 x10^3/uL (0.0-0.2) 0.0 x10^3/uL (0.0-0.2) Segmented Neutrophils % 40 % (35-66) Band Neutrophils % 18 % (0-9) Lymphocytes % 21 % (24-48) Monocytes % 21 % (0-10) Platelet Estimate Adequate (ADEQUATE) Prothrombin Time 13.7 SEC (11.7-14.0) Prothromb Time International Ratio 1.1 (0.8-1.1) Activated Partial Thromboplast Time 33 SEC (24-38) Sodium Level 138 mmol/L (136-145) 140 mmol/L (136-145) Potassium Level 3.5 mmol/L (3.5-5.1) 3.9 mmol/L (3.5-5.1) Chloride Level 100 mmol/L (98-107) 103 mmol/L (98-107) Carbon Dioxide Level 33 mmol/L (21-32) 30 mmol/L (21-32) Anion Gap 5 (6-14) 7 (6-14) Blood Urea Nitrogen 7 mg/dL (7-20) 7 mg/dL (7-20) Creatinine 0.8 mg/dL (0.6-1.0) 0.5 mg/dL (0.6-1.0) Estimated GFR (Cockcroft-Gault) 86.7 149.1 Glucose Level 90 mg/dL (70-99) 119 mg/dL (70-99) Calcium Level 8.5 mg/dL (8.5-10.1) 8.6 mg/dL (8.5-10.1) Total Bilirubin 0.3 mg/dL (0.2-1.0) Direct Bilirubin 0.1 mg/dL (0.0-0.2) Aspartate Amino Transf (AST/SGOT) 18 U/L (15-37) Alanine Aminotransferase (ALT/SGPT) 18 U/L (14-59) Alkaline Phosphatase 58 U/L (46-116) Total Protein 7.1 g/dL (6.4-8.2) Albumin 3.1 g/dL (3.4-5.0) Group A Streptococcus Rapid Negative (NEGATIVE) Medications Current Medications Sodium Chloride 1,000 ml @ 1,000 mls/hr 1X ONCE IV Last administered on 09:45; Start 09/06/16 at 09:45; Stop 09/06/16 at 10:44; Status DC Iohexol (Omnipaque 300 Mg/ml) 75 ml 1X ONCE IV Last administered on 09/06/16 09:56; Start 09/06/16 at 10:00; Stop 09/06/16 at 10:01; Status DC Info (Do NOT chart on this entry -- for MONITORING) 1 each PRN DAILY PRN MC SEE COMMENTS; Start 09/06/16 at 10:00; Stop 09/08/16 at 09:59 Acetaminophen (Tylenol) 1,000 mg 1X ONCE PO Last administered on 09/06/16 11: 18; Start 09/06/16 at 11:30; Stop 09/06/16 at 11:31; Status DC Ondansetron HCl (Zofran) 4 mg PRN Q8HRS PRN IV NAUSEA/VOMITING; Start 09/06/16 at 12:15; Stop 09/07/16 at 12:14 Fentanyl Citrate (Fentanyl 2ml Vial) 50 mcg PRN Q2HR PRN IV PAIN; Start at 12:15; Stop 09/07/16 at 12:14 Dextrose/Sodium Chloride 1,000 ml @ 100 mls/hr 1X ONCE IV Last administered on 09/06/16 12:15; Start 09/06/16 at 12:15; Stop 09/06/16 at 22:14; Status DC Guaifenesin/ Codeine Phosphate (Robitussin Ac) 10 ml Q8HRS PO Last administered on 09/07/16 05:44; Start 09/06/16 at 14:45 Non-Formulary Medication 1 tab DAILY PO ; Start 09/07/16 at 09:00; Stop at 09:00; Status DC Acetaminophen (Tylenol) 650 mg PRN Q6HRS PRN PO FEVER Last administered on 09/06 17:20; Start 09/06/16 at 14:15 Ondansetron HCl (Zofran) 4 mg PRN Q6HRS PRN IV NAUSEA/VOMITING; Start 09/06/16 at 14:15 Morphine Sulfate 2 mg PRN Q2HR PRN IV PAIN; Start 09/06/16 at 14:15 Tramadol HCl (Ultram) 50 mg PRN Q6HRS PRN PO PAIN Last administered on 15:10; Start 09/06/16 at 14:15 Hydralazine HCl (Apresoline) 10 mg PRN Q4HRS PRN IVP ELEVATED BP, SEE COMMENTS ; Start 09/06/16 at 14:15 Docusate Sodium (Colace) 100 mg PRN DAILY PRN PO CONSTIPATION; Start 09/06/16 at 14:15 Sodium Chloride 1,000 ml @ 100 mls/hr Q10H IV Last administered on 09/06/16 21:38; Start 09/06/16 at 14:15; Stop 09/07/16 at 09:29; Status DC Throat Lozenges (Cepacol Sore Throat Lozenge) 1 levi PRN Q2HRS PRN PO SORE THROAT Last administered on 09/06/16 17:20; Start 09/06/16 at 14:15 Pantoprazole Sodium (Protonix) 40 mg DAILYAC PO ; Start 09/07/16 at 16:30 Methylprednisolone Sodium Succinate (SOLU-Medrol 40MG VIAL) 40 mg Q12HR IV Last administered on 09/07/16 08:01; Start 09/06/16 at 15:00 Enoxaparin Sodium (Lovenox 40mg Syringe) 40 mg Q24H SQ Last administered on 15:09; Start 09/06/16 at 15:00 Amoxicillin/ Clavulanate Potassium (Augmentin 875/ 125mg) 1 tab BID PO ; Start 09/06/16 at 21:00; Stop 09/06/16 at 21:00; Status DC Potassium Chloride/Dextrose/ Sod Cl 1,000 ml @ 100 mls/hr Q10H IV ; Start 09/07 at 09:30 Active Scripts Active Prednisone 50 Mg Tablet 1 Tab PO DAILY Augmentin 875-125 Tablet (Amoxicillin/Potassium Clav) 1 Each Tablet 1 Tab PO BID Zofran Odt (Ondansetron) 4 Mg Tab.rapdis 1 Tab SL Q8HRS Codeine-Guaifen 10-100 mg/5 ml (Guaifenesin/Codeine Phosphate) 120 Ml Liquid 10 Ml PO Q8HRS Zithromax (Azithromycin) 250 Mg Tablet 1 Pkg PO UD Take 2 tablets on day 1 and then 1 tablet each day for the next 4 days as directed Vitals/I & O Vital Sign - Last 24 Hours 09/06/16 09/06/16 09/06/16 09/06/16 11:18 11:48 12:18 14:22 Pulse 90 90 90 B/P (MAP) 120/57 (78) 105/57 (73) 98/53 (68) O2 Delivery Room Air 09/06/16 09/06/16 09/06/16 09/06/16 15:00 15:10 16:18 19:00 Temp 97.7 97.7 97.7 97.7 Pulse 89 77 Resp 18 16 16 16 B/P (MAP) 97/58 (71) 97/62 (74) Pulse Ox 99 99 O2 Delivery Room Air Room Air Room Air Room Air 09/06/16 09/06/16 09/07/16 09/07/16 20:00 23:00 03:00 07:00 Temp 97.7 97.9 98.1 97.7 97.9 98.1 Pulse 78 76 82 Resp 16 16 18 B/P (MAP) 94/54 (67) 98/62 (74) 98/63 (75) Pulse Ox 98 96 99 O2 Delivery Room Air Room Air Room Air Room Air Intake and Output 09/06/16 09/06/16 09/07/16 15:00 23:00 07:00 Intake Total 800 ml 470 ml Balance 800 ml 470 ml REGINA MILLS MD Sep 07, 2016 09:41
[2016-09-07] MEDS ORDERED: BENZOCAINE/MENTHOL LOZENGE. PO PRN (09:45)
[2016-09-07] MEDS: PHENOL ORAL SPRAY 177ML BOTTLE. PO PRN ×2 (10:26→15:36)
[2016-09-07 10:52] VITALS: BP 104/61
[2016-09-07] MEDS: POTASSIUM CL 20MEQ D5-0.45NACL 1,000 ML IV SCH ×2 (11:15→21:34)
[2016-09-07 15:11] VITALS: BP 98/56
[2016-09-07] MEDS: ENOXAPARIN 40 MG/0.4 ML SYRINGE. SQ SCH (15:13)
[2016-09-07] MEDS: ACETAMINOPHEN 325 MG TABLET. PO PRN (15:13)
[2016-09-07] MEDS: PANTOPRAZOLE 40 MG TABLET.DR. PO SCH (15:38)
[2016-09-07] MEDS: traMADol 50 MG TABLET PO PRN (17:24)
[2016-09-07 19:00] VITALS: BP 94/54
[2016-09-07 23:00] VITALS: BP 93/63
[2016-09-08] VITALS (7 sets, daily range): BP systolic 95–112; BP diastolic 56–74
[2016-09-08] MEDS: traMADol 50 MG TABLET PO PRN (02:44)
[2016-09-08] MEDS: guaiFENesin/CODEINE 100mg/10mg 5 ML LIQUID PO SCH ×3 (06:22→21:06)
[2016-09-08] MEDS: PANTOPRAZOLE 40 MG TABLET.DR. PO SCH (06:22)
[2016-09-08] MEDS: methylPREDNISolone SOD SUCC PF 40 MG/ML VIAL. IV SCH ×2 (08:31→21:06)
[2016-09-08] MEDS: PHENOL ORAL SPRAY 177ML BOTTLE. PO PRN (08:32)
--- NOTE | 2016-09-08 09:27 | PDOC ---
PROGRESS NOTES Chief Complaint Chief Complaint mononucleosis with sore throat, fever, body ache hypotension, 2/2 hypovolemia likely SIRS with mono sore throat, appearance of strep, cx pending, rapid strep neg History of Present Illness History of Present Illness strep pcp, neg swab cont ivf, poor PO intake, full liquid diet, advance as able solumedrol bid cepasol lozenge pain control, she declines morphine, makes her feel weird dvt ppx Vitals Vitals Vital Signs Date Time Temp Pulse Resp B/P (MAP) Pulse Ox O2 Delivery O2 Flow Rate FiO2 09/08/16 08:00 Room Air 09/08/16 07:00 97.5 73 18 103/69 (80) 96 97.5 Physical Exam Physical Exam erythema to post pharynx, with swollen tonsils with white exudate in patches General: Alert, Oriented X3, Cooperative, mild distress Heart: Regular rate Lungs: Clear, Wheezing Abdomen: Normal bowel sounds Extremities: No clubbing, No cyanosis Review of Systems Review of Systems nausea myalgia, sore throat poor po intake Assessment and Plan Assessmemt and Plan Problems Medical Problems: (1) Fever Status: Acute (2) Mononucleosis Status: Acute Problems: Comment Review of Relevant I have reviewed the following items isaac (where applicable) has been applied. Labs Laboratory Tests Test 09/06/16 09:46 09/06/16 15:19 09/07/16 06:45 White Blood Count 9.8 x10^3/uL (4.0-11.0) 8.7 x10^3/uL (4.0-11.0) Red Blood Count 4.00 x10^6/uL (3.50-5.40) 4.06 x10^6/uL (3.50-5.40) Hemoglobin 12.7 g/dL (12.0-15.5) 12.6 g/dL (12.0-15.5) Hematocrit 37.1 % (36.0-47.0) 37.9 % (36.0-47.0) Mean Corpuscular Volume 93 fL (79-100) 93 fL (79-100) Mean Corpuscular Hemoglobin 32 pg (25-35) 31 pg (25-35) Mean Corpuscular Hemoglobin Concent 34 g/dL (31-37) 33 g/dL (31-37) Red Cell Distribution Width 12.3 % (11.5-14.5) 12.3 % (11.5-14.5) Platelet Count 212 x10^3/uL (140-400) 207 x10^3/uL (140-400) Neutrophils (%) (Auto) 68 % (31-73) 84 % (31-73) Lymphocytes (%) (Auto) 11 % (24-48) 9 % (24-48) Monocytes (%) (Auto) 21 % (0-9) 7 % (0-9) Eosinophils (%) (Auto) 0 % (0-3) 0 % (0-3) Basophils (%) (Auto) 0 % (0-3) 0 % (0-3) Neutrophils # (Auto) 6.7 x10^3uL (1.8-7.7) 7.3 x10^3uL (1.8-7.7) Lymphocytes # (Auto) 1.0 x10^3/uL (1.0-4.8) 0.8 x10^3/uL (1.0-4.8) Monocytes # (Auto) 2.1 x10^3/uL (0.0-1.1) 0.6 x10^3/uL (0.0-1.1) Eosinophils # (Auto) 0.0 x10^3/uL (0.0-0.7) 0.0 x10^3/uL (0.0-0.7) Basophils # (Auto) 0.0 x10^3/uL (0.0-0.2) 0.0 x10^3/uL (0.0-0.2) Segmented Neutrophils % 40 % (35-66) Band Neutrophils % 18 % (0-9) Lymphocytes % 21 % (24-48) Monocytes % 21 % (0-10) Platelet Estimate Adequate (ADEQUATE) Prothrombin Time 13.7 SEC (11.7-14.0) Prothromb Time International Ratio 1.1 (0.8-1.1) Activated Partial Thromboplast Time 33 SEC (24-38) Sodium Level 138 mmol/L (136-145) 140 mmol/L (136-145) Potassium Level 3.5 mmol/L (3.5-5.1) 3.9 mmol/L (3.5-5.1) Chloride Level 100 mmol/L (98-107) 103 mmol/L (98-107) Carbon Dioxide Level 33 mmol/L (21-32) 30 mmol/L (21-32) Anion Gap 5 (6-14) 7 (6-14) Blood Urea Nitrogen 7 mg/dL (7-20) 7 mg/dL (7-20) Creatinine 0.8 mg/dL (0.6-1.0) 0.5 mg/dL (0.6-1.0) Estimated GFR (Cockcroft-Gault) 86.7 149.1 Glucose Level 90 mg/dL (70-99) 119 mg/dL (70-99) Calcium Level 8.5 mg/dL (8.5-10.1) 8.6 mg/dL (8.5-10.1) Total Bilirubin 0.3 mg/dL (0.2-1.0) Direct Bilirubin 0.1 mg/dL (0.0-0.2) Aspartate Amino Transf (AST/SGOT) 18 U/L (15-37) Alanine Aminotransferase (ALT/SGPT) 18 U/L (14-59) Alkaline Phosphatase 58 U/L (46-116) Total Protein 7.1 g/dL (6.4-8.2) Albumin 3.1 g/dL (3.4-5.0) Group A Streptococcus Rapid Negative (NEGATIVE) Medications Current Medications Sodium Chloride 1,000 ml @ 1,000 mls/hr 1X ONCE IV Last administered on 09:45; Start 09/06/16 at 09:45; Stop 09/06/16 at 10:44; Status DC Iohexol (Omnipaque 300 Mg/ml) 75 ml 1X ONCE IV Last administered on 09/06/16 09:56; Start 09/06/16 at 10:00; Stop 09/06/16 at 10:01; Status DC Info (Do NOT chart on this entry -- for MONITORING) 1 each PRN DAILY PRN MC SEE COMMENTS; Start 09/06/16 at 10:00; Stop 09/08/16 at 09:59 Acetaminophen (Tylenol) 1,000 mg 1X ONCE PO Last administered on 09/06/16 11: 18; Start 09/06/16 at 11:30; Stop 09/06/16 at 11:31; Status DC Ondansetron HCl (Zofran) 4 mg PRN Q8HRS PRN IV NAUSEA/VOMITING; Start 09/06/16 at 12:15; Stop 09/07/16 at 10:24; Status DC Fentanyl Citrate (Fentanyl 2ml Vial) 50 mcg PRN Q2HR PRN IV PAIN; Start at 12:15; Stop 09/07/16 at 12:14; Status DC Dextrose/Sodium Chloride 1,000 ml @ 100 mls/hr 1X ONCE IV Last administered on 09/06/16 12:15; Start 09/06/16 at 12:15; Stop 09/06/16 at 22:14; Status DC Guaifenesin/ Codeine Phosphate (Robitussin Ac) 10 ml Q8HRS PO Last administered on 09/08/16 06:22; Start 09/06/16 at 14:45 Non-Formulary Medication 1 tab DAILY PO ; Start 09/07/16 at 09:00; Stop at 09:00; Status DC Acetaminophen (Tylenol) 650 mg PRN Q6HRS PRN PO FEVER Last administered on 09/07 15:13; Start 09/06/16 at 14:15 Ondansetron HCl (Zofran) 4 mg PRN Q6HRS PRN IV NAUSEA/VOMITING; Start 09/06/16 at 14:15 Morphine Sulfate 2 mg PRN Q2HR PRN IV PAIN Last administered on 09/07/16 18:58 ; Start 09/06/16 at 14:15 Tramadol HCl (Ultram) 50 mg PRN Q6HRS PRN PO PAIN Last administered on 02:44; Start 09/06/16 at 14:15 Hydralazine HCl (Apresoline) 10 mg PRN Q4HRS PRN IVP ELEVATED BP, SEE COMMENTS ; Start 09/06/16 at 14:15 Docusate Sodium (Colace) 100 mg PRN DAILY PRN PO CONSTIPATION; Start 09/06/16 at 14:15 Sodium Chloride 1,000 ml @ 100 mls/hr Q10H IV Last administered on 09/06/16 21:38; Start 09/06/16 at 14:15; Stop 09/07/16 at 09:29; Status DC Throat Lozenges (Cepacol Sore Throat Lozenge) 1 levi PRN Q2HRS PRN PO SORE THROAT Last administered on 09/06/16 17:20; Start 09/06/16 at 14:15; Stop 09/07 at 10:24; Status DC Pantoprazole Sodium (Protonix) 40 mg DAILYAC PO Last administered on 09/08/16 06:22; Start 09/07/16 at 16:30 Methylprednisolone Sodium Succinate (SOLU-Medrol 40MG VIAL) 40 mg Q12HR IV Last administered on 09/08/16 08:31; Start 09/06/16 at 15:00 Enoxaparin Sodium (Lovenox 40mg Syringe) 40 mg Q24H SQ Last administered on 15:13; Start 09/06/16 at 15:00 Amoxicillin/ Clavulanate Potassium (Augmentin 875/ 125mg) 1 tab BID PO ; Start 09/06/16 at 21:00; Stop 09/06/16 at 21:00; Status DC Potassium Chloride/Dextrose/ Sod Cl 1,000 ml @ 100 mls/hr Q10H IV Last administered on 09/07/16 21:34; Start 09/07/16 at 09:30 Throat Lozenges (Cepacol Sore Throat Lozenge) 1 levi PRN Q2HRS PRN PO SORE THROAT Last administered on 09/07/16 15:16; Start 09/07/16 at 09:45 Throat Lozenges (Chloraseptic) 2 spray PRN Q2HR PRN PO SORE THROAT Last administered on 09/08/16 08:32; Start 09/07/16 at 09:45 Ceftriaxone Sodium 1 gm/ Sodium Chloride 50 ml @ 100 mls/hr Q24H IV Last administered on 09/07/16 10:30; Start 09/07/16 at 10:00 Active Scripts Active Prednisone 50 Mg Tablet 1 Tab PO DAILY Augmentin 875-125 Tablet (Amoxicillin/Potassium Clav) 1 Each Tablet 1 Tab PO BID Zofran Odt (Ondansetron) 4 Mg Tab.rapdis 1 Tab SL Q8HRS Codeine-Guaifen 10-100 mg/5 ml (Guaifenesin/Codeine Phosphate) 120 Ml Liquid 10 Ml PO Q8HRS Zithromax (Azithromycin) 250 Mg Tablet 1 Pkg PO UD Take 2 tablets on day 1 and then 1 tablet each day for the next 4 days as directed Vitals/I & O Vital Sign - Last 24 Hours 09/07/16 09/07/16 09/07/16 09/07/16 10:52 15:11 17:24 18:58 Temp 98.1 99.7 98.1 99.7 Pulse 95 92 Resp 18 18 18 20 B/P (MAP) 104/61 (75) 98/56 (70) Pulse Ox 98 98 98 98 O2 Delivery Room Air Room Air Room Air Room Air 09/07/16 09/07/16 09/07/16 09/07/16 19:00 19:28 20:00 23:00 Temp 97.7 97.7 97.7 97.7 Pulse 72 69 Resp 18 18 B/P (MAP) 94/54 (67) 93/63 (73) Pulse Ox 96 98 98 O2 Delivery Room Air Room Air Room Air Room Air 09/08/16 09/08/16 09/08/16 09/08/16 02:44 03:00 03:44 07:00 Temp 97.7 97.5 97.7 97.5 Pulse 87 73 Resp 18 18 20 18 B/P (MAP) 105/69 (81) 103/69 (80) Pulse Ox 98 99 99 96 O2 Delivery Room Air Room Air Room Air Room Air 09/08/16 08:00 O2 Delivery Room Air Intake and Output 09/07/16 09/07/16 09/08/16 15:00 23:00 07:00 Intake Total 390 ml 1340 ml Balance 390 ml 1340 ml REGINA MILLS MD Sep 08, 2016 09:27
[2016-09-08] MEDS: POTASSIUM CL 20MEQ D5-0.45NACL 1,000 ML IV SCH (10:50)
[2016-09-08] MEDS: ENOXAPARIN 40 MG/0.4 ML SYRINGE. SQ SCH (15:21)
[2016-09-09] MEDS: traMADol 50 MG TABLET PO PRN (02:10)
[2016-09-09 03:00] VITALS: BP 102/71
[2016-09-09] MEDS: guaiFENesin/CODEINE 100mg/10mg 5 ML LIQUID PO SCH ×3 (06:26→21:02)
[2016-09-09 07:00] VITALS: BP 113/69
[2016-09-09] MEDS: PANTOPRAZOLE 40 MG TABLET.DR. PO SCH (07:38)
--- NOTE | 2016-09-09 09:03 | ACF ---
Admit Criteria Forms Admit Criteria Forms Admit Criteria Forms GENERAL ADMISSION CRITERIA (Place 'X' for any and all applicable criteria): Admission is indicated for ANY ONE of the following: [ ]I. Hemodynamic instability as indicated by ANY ONE of the following(1)(2) (3)(4)(5): [ ]a) Vital sign abnormality not readily corrected by appropriate treatment within 12 to 24 hours indicated by ANY ONE of the following: [ ]i) Hypotension [ ]ii) Symptomatic Tachycardia unresponsive to treatment (eg , analgesia, fluids, sedation as indicated) [ ]iii) Orthostatic vital sign changes unresponsive to treatment (eg, fluids) [ ]b) Vital sign abnormality that is severe indicated by ANY ONE of the following: [ ]i) Inadequate perfusion indicated by ANY ONE of the following: [ ]1) Lactic acidosis (greater than 2 mmol/L) [ ]2) New abnormal capillary refill (greater than 3 seconds) [ ]3) Other metabolic acidosis (arterial pH less than 7.35) not otherwise explained [ ]4) Reduced urine output [ ]5) Altered mental status [ ]6) Myocardial Ischemia [ ]v) Mean arterial pressure[A] less than 60 mm Hg [ ]vi) Mean arterial pressure[A] less than 70 mm Hg after 30 minutes of appropriate treatment (eg, fluid resuscitation) [ ]vii) IV inotropic or vasopressor medication required to maintain adequate blood pressure or perfusion [ ]viii) Sustained heart rate greater than 120 beats per minute in adult or child 6 years or older[B]] [ ]II. Hypertension requiring inpatient treatment as indicated by ANY ONE of the following(6)(7)(8): [ ]a) SBP greater than 220 mm Hg or DBP greater than 120 mm Hg despite treatment [ ]b) SBP greater than 140 mm Hg or DBP greater than 100 mm Hg with evidence of acute end organ damage as indicated by ANY ONE of the following: [ ]i) Encephalopathy [ ]ii) Acute renal failure as indicated by new onset of ANY ONE of the following(9)(10)(11)(12)(13): [ ]1) A 3-fold rise in serum creatinine from baseline [ ]2) Serum creatinine greater than 4 mg/dL ( 354 micromoles/L) with acute rise greater than 0.5 mg/dL (44.2 micromoles/L) [ ]3) Reduction of more than 75% in estimated glomerular filtration rate from baseline [ ]4) Estimated glomerular filtration rate less than 35 mL/min/1.73m2 (0.59 mL/sec/1.73m2) in child up to 18 years of age [ ]5) Cessation of urine output indicated by ALL of the following: [ ]A. Adequate volume status [ ]B. Inadequate urine output as indicated by ANY ONE of the following: [ ]a. Urine output less than 0.3 mL/kg/hr for 24 hours [ ]b. Anuria (urine output less than 0.1 mL/kg/hr) for 12 hours [ ]iii) Aortic dissection [ ]iv) Myocardial ischemia [ ]v) Left ventricular heart failure [ ]vi) Retinal hemorrhage [ ]vii) Other significant finding [ ]c) Hypertension in child requiring inpatient treatment as indicated by ALL of the following(14)(15)(16): [ ]i) Outpatient treatment not effective, not available, or not appropriate [ ]ii) SBP or DBP greater than 95th percentile for age [ ]iii) Evidence of acute end organ damage as indicated by ANY ONE of the following: [ ]1) Altered mental status [ ]2) Acute renal failure as indicated by new onset of ANY ONE of the following(9)(10)(11)(12)(13): [ ]A. A 3-fold rise in serum creatinine from baseline [ ]B. Serum creatinine greater than 4 mg/dL (354 micromoles/L) with acute rise greater than 0.5 mg/dL (44.2 micromoles/L) [ ]C. Reduction of more than 75% in estimated glomerular filtration rate from baseline [ ]D. Estimated glomerular filtration rate less than 35 mL/min/1.73m2 (0.59 mL/sec/1.73m2)in child up to 18 years of age [ ]E. Cessation of urine output indicated by ALL of the following: [ ]a. Adequate volume status [ ]b. Inadequate urine output as indicated by ANY ONE of the following: [ ]1) Urine output less than 0.3 mL/kg/hr for 24 hours [ ]2) Anuria (urine output less than 0.1 mL/kg/hr) for 12 hours [ ]3) Severe headache [ ]4) Visual disturbance [ ]5) Retinal hemorrhage [ ]6) Other significant finding [ ]III. Acute cardiac or peripheral ischemia as indicated by ANY ONE of the following: [ ]a) Acute coronary syndrome(17)(18) [ ]b) Acute peripheral ischemia (eg, pulseless, cool, mottled, or cyanotic extremity)(19) [ ]IV. Cardiac arrhythmias or findings of immediate concern indicated by ANY ONE of the following(20)(21): [ ]a) Heart rhythms that are inherently dangerous or unstable indicated by ANY ONE of the following(22)(23)(24): [ ]i) Resuscitated ventricular fibrillation or cardiac arrest [ ]ii) Ventricular escape rhythm [ ]iii) Sustained ventricular tachycardia (30 seconds or more of ventricular rhythm at greater than 100 beats per minute) [ ]iv) Nonsustained ventricular tachycardia and ANY ONE of the following: [ ]1) Suspected cardiac ischemia as cause or consequence of ventricular tachycardia [ ]2) In setting of acute myocarditis [ ]b) Unstable cardiac conduction defects indicated by ANY ONE of the following(24)(25)(26): [ ]i) Type II second-degree atrioventricular block [ ]ii) Third-degree atrioventricular block [ ]iii) New-onset left bundle branch block with suspected myocardial ischemia [ ]c) Any heart rhythm and ANY ONE of the following(22)(23)(27)(28)( 29): [ ] i) Continuous long-term ECG monitoring needed (eg, initiation of drug requiring monitoring for more than 24 hours) [ ] ii) Patient has automatic implanted cardioverter defibrillator that is repeatedly firing, malfunctioning, or in need of immediate adjustment of settings beyond the scope of ambulatory or observation care. [ ]d) Heart rhythms of concern due to ANY ONE of the following: [ ]i) Hypotension [ ]ii) Respiratory distress [ ]iii) Association with other significant symptoms (eg, bradycardia with syncope or ongoing dizziness, supraventricular tachycardia with chest pain) (27)(28) (30) [ ] V. Severe heart failure as indicated by ANY ONE of the following ( 31)(32): [ ]a) Respiratory distress [ ]b) Hypotension [ ]c) Anasarca (refractory to outpatient therapy) [ ]d) Cardiac arrhythmias of immediate concern [ ]e) Myocardial ischemia [ ]. Respiratory abnormalities, including ANY ONE of the following(33)(34) (35)(36): [ ]a) Respiratory rate greater than 30 breaths per minute unresponsive to treatment [A] [ ]b) New saturation of arterial oxygen less than 90% [ ]c) New partial pressure of carbon dioxide greater than 44 mm Hg ( 5.9 kPa) [ ]d) Supplemental oxygen or respiratory treatments needed that are new or not performable at other levels of care [ ]e) New-onset cyanosis [ ]f) Inability to protect airway [ ]g) Chronic lung disease with severe deterioration (not responsive to emergency and observation care treatment as appropriate) as indicated by ANY ONE of the following(34)(36 ): [ ]i) SaO2 5% below baseline in patient with chronic hypoxemia [ ]ii) New requirement for supplemental oxygen to keep SaO2 at baseline or acceptable level [ ]iii) Required supplemental oxygen performable only in acute inpatient setting [ ]iv) Severe airflow or ventilation abnormalities [ ]v) Previously mobile patient unable to walk between rooms [ ]vi Inability to eat or sleep due to dyspnea [ ]vii) Rapid rate of exacerbation onset [ ]viii) Altered mental status ]VII. Severe airflow or ventilation abnormalities (not responsive to emergency and observation care treatment as appropriate) as indicated by ANY ONE of the following(33)(34)(35)(37): [ ]a) PCO2 greater than 42 mm Hg (5.6 kPa) and pH less than 7.35 (new ) [ ]b) Documented PCO2 increased more than 5 mm Hg (0.7 kPa) from disease baseline [ ]c) Airflow measurements [B] less than 60% of previous best or predicted (eg, peak expiratory flow rate less than 300 L/minute) despite intensive emergent treatment [C] [ ]d) Required respiratory treatments that are performable only in acute inpatient setting [ ]VIII. Impending or actual respiratory arrest ( Also use Respiratory Failure GRG for severe respiratory disease and long-term mechanical ventilation patients) [ ]IX. Neurologic abnormalities, including ANY ONE of the following: [ ]a) New findings that suggest ANY ONE of the following: [ ]i) [employer] infection(38) [ ]ii) Cerebral bleeding, ischemia, or vasospasm(39)(40) [ ]iii) Increased intracranial pressure, hydrocephalus, or cerebral edema(41)(42)(43) [ ]iv) Spinal cord injury(44) [ ]b) Uncontrolled seizures(45) [ ]c) New-onset coma (eg, [place] coma scale score less than 9) or unexplained abnormal mental status (eg, [place] coma scale score less than 14) [D](41)(46)(47) [ ]X. New-onset severe neurologic findings requiring inpatient care; examples include(42)(48)(49): [ ]a) Papilledema [ ]b) Cerebral edema [ ]c) Mass effect on CT scan [ ]XI. Suspected acute intra-abdominal process with peritoneal signs, abdominal mass, or similar findings (50)(51)(52) [ ]XII. Severe physiologic disorder remaining after emergency or observation level care (as appropriate) as indicated by ANY ONE of the following (53): [ ]a) Significant dehydration [ ]b) Diabetic ketoacidosis [ ]c) Hyperglycemic hyperosmolar state (eg, osmolality greater than 320 mOsm/kg (mmol/kg) [ ]d) Hypoglycemia [ ]e) Other (new) acid-base disorder with pH less than 7.35 or greater than 7.5(54) [ ]f) Thyroid storm (55) [ ]g) Myxedema coma (55) [ ]XIII. Abdominal abnormalities with ANY ONE of the following(56)(57): [ ]a) Absent bowel sounds with complete ileus [ ]b) Signs of intestinal obstruction or peritonitis [E] [ ]c) Nausea and vomiting that cannot be controlled with outpatient or observation care [ ]XIV. Acute renal failure as indicated by new onset of ANY ONE of the following(9)(10)(11)(12)(13): [ ]a) A 3-fold rise in serum creatinine from baseline [ ]b) Serum creatinine greater than 4 mg/dL (354 micromoles/L) with acute rise greater than 0.5 mg/dL (44.2 micromoles/L) [ ]c) Reduction of more than 75% in estimated glomerular filtration rate from baseline [ ]d) Estimated glomerular filtration rate less than 35 mL/min/ 1.73m2 (0.59 mL/sec/1.73m2) in child up to 18 years of age [ ]e) Cessation of urine output indicated by ALL of the following: [ ]i) Adequate volume status [ ]ii) Inadequate urine output as indicated by ANY ONE of the following: [ ]1) Urine output less than 0.3 mL/kg/hr for 24 hours [ ]2) Anuria (urine output less than 0.1 mL/kg/hr) for 12 hours [ ]XV. Significant uremic complications as indicated by ANY ONE of the following(58)(59)(60): [ ]a) Outpatient therapy is ineffective or not feasible for ANY ONE of the following: [ ]i) Severe heart failure [ ]ii) Severehypertension [ ]iii) Pleural effusion [ ]iv) Pericarditis or pericardial effusion [ ]b) Cardiac arrhythmias of immediate concern [ ]c) Intractable nausea or vomiting [ ]d) Recurrent seizures [ ]e) Encephalopathy [ ]f) Bleeding abnormalities (eg, platelet dysfunction) with active (eg, gastrointestinal) bleeding [ ]g) Dialysis indicated before long-term access or ambulatory arrangements can be made [ ]h) Significant metabolic or electrolyte abnormalities (eg, severe acidosis or hyperkalemia) [ ]XVI. High fever or other high-risk infection situation as indicated by ANY ONE of the following(61)(62)(63)(64): [ ]a) Outpatient and observation care antimicrobial treatment unavailable, not effective, or not appropriate [ ]b) Documented bacteremia [ ]c) Temperature greater than 40.5 degrees C (104.9 degrees F) ( oral) [ ]d) Temperature greater than 39.5 degrees C (103.1 degrees F) ( oral) or less than 36 degrees C (96.8 degrees F) (rectal) that does not respond to e treatment and observation care [ ] XVII. Temperature less than 95 degrees F (35 degrees C)(rectal)(65) [ ] XVIII. Severe nutritional abnormalities as indicated by ALL of the following (66)(67): [ ]a) Inability to tolerate or establish sufficient oral or other enteral nutrition in outpatient setting [ ]b) Parenteral nutrition regimen need that must be implemented on inpatient basis [ ] XIX. Severe electrolyte abnormalities indicated by ALL of the following(68) (69)(70): [ ]a) Electrolytes and associated findings are not as expected for patient baseline or acceptable treatment effects. [ ]b) Severe abnormalities indicated by ANY ONE of the following: [ ]i) Sodium less than 130 mEq/L (mmol/L) (new) [ ]ii)Sodium less than 135 mEq/L (mmol/L) with ANY ONE of the following: [ ]1) Uncorrectable (to near normal or chronic baseline) after trial of outpatient and emergency treatment [ ]2) Altered mental status [ ]3) Seizures [ ]4) Severe medical etiology requiring inpatient management (eg, heart failure, hypovolemia) [ ]iii) Sodium greater than 155 mEq/L (mmol/L) [ ]iv) Sodium greater than 150 mEq/L (mmol/L) with ANY ONE of the following: [ ]1) Uncorrectable (to near normal or chronic baseline) with outpatient and emergency treatment [ ]2) Altered mental status [ ]3) Seizures [ ]4) Severe medical etiology (eg, hypovolemia, diabetes insipidus) [ ]v) Potassium less than 2.5 mEq/L (mmol/L) despite outpatient and emergency treatment [ ]vi) Potassium less than 3 mEq/L (mmol/L) with ANY ONE of the following: [ ]1) Weakness [ ]2) Cardiac abnormality (eg, arrhythmia, conduction disturbance) [ ]3) Cardiac ischemia [ ]4) Ileus [ ]5) Ongoing medical cause requiring inpatient management (eg, acute renal wasting or SIADH) [ ]6) Other severe symptoms [ ]vii) Potassium greater than 6.5 mEq/L (mmol/L) [ ]viii) Potassium greater than 5 mEq/L (mmol/L) with ANY ONE of the following: [ ]1) Uncorrectable (to near normal or chronic baseline) with outpatient and emergency treatment [ ]2) Severe ECG findings [F] [ ]3) Acute worsening of renal failure (creatinine greater than 2.5 mg/dL (221 micromoles/L) or significant elevation for age and size) [ ]4) Severe weakness [ ]5) Severe medical etiology (eg, hemolysis, infection, drug overdose) [ ]ix) Calcium less than 7 mg/dL (1.75 mmol/L) despite outpatient and emergency treatment (72) [ ]x) Calcium less than 8 mg/dL (2 mmol/L) with significant symptoms or findings; examples include(72): [ ]1) Altered mental status [ ]2) Muscle spasms [ ]3) Seizures [ ]4) Breathing difficulty [ ]5) Cardiac abnormality (eg, arrhythmia or conduction disturbance) [ ]xi) Calcium greater than 14 mg/dL (3.5 mmol/L)(72) [ ]xii) Calcium greater than 12 mg/dL (3 mmol/L) with ANY ONE of the following(72): [ ]1) Uncorrectable (to near normal or chronic baseline) with outpatient and emergency treatment [ ]2) Significant dehydration or hypovolemia as indicated by ALL of the following(70)(73)(74): [ ]A. Not resolved with initial treatments [ ]B. Clinically significant dehydration as indicated by ANY ONE of the following: [ ]a. Vomiting refractory to outpatient treatment (ie, precluding oral rehydration) [ ]b. Inability to drink [ ]c. Hypernatremia or other electrolyte abnormality unable to be corrected with outpatient and emergency treatment [ ]d. Failure to remain hydrated with outpatient therapy [ ]e. Reduced urine output [ ]f. Hypotension [ ]g. Serious cause for dehydration requiring acute hospitalization (eg, bowel obstruction, increased intracranial pressure, infectious cause) [ ]h. Child with ANY ONE of the following(75): [ ]1) Severe abdominal tenderness [ ]2) Adequate care not available at home [ ]3) Severe dehydration ( greater than 9% loss of body weight) [ ]4) Significant symptoms or findings; examples include: [ ]A. Altered mental status [ ]B. Cardiac abnormality (eg, arrhythmia, conduction disturbance) [ ]C. Malignant etiology requiring inpatient treatment [ ]xiii) Phosphorus less than 1 mg/dL (0.32 mmol/L) [ ]xiv) Phosphorus less than 1.5 mg/dL (0.48 mmol/L) with ANY ONE of the following: [ ]1) Patient unresponsive to outpatient and emergency treatment [ ]2) Significant symptoms or findings; examples include: [ ]A. Weakness [ ]B. Altered mental status [ ]C. Breathing difficulty [ ]D. Seizures [ ]E. Rhabdomyolysis [ ]xv) Phosphorus greater than 10 mg/dL (3.2 mmol/L) [ ]xvi) Phosphorus greater than 4.5 mg/dL (1.45 mmol/L) (new) with ANY ONE of the following: [ ]1) Severe medical etiology (eg, crush injury, acute renal failure) [ ]2) Associated hypocalcemia with significant findings; examples include: [ ]A. Neurologic symptoms [ ]B. Altered mental status [ ]C. Muscle spasms [ ]D. Seizures [ ]E. Breathing difficulty [ ]F. Cardiac abnormality (eg, arrhythmia, conduction disturbance) [ ]xvii) Magnesium less than 1 mg/dL (0.41 mmol/L) [ ]xviii) Magnesium less than 1.5 mg/dL (0.62 mmol/L) with ANY ONE of the following: [ ]1) Patient unresponsive to outpatient and emergency treatment [ ]2) Associated hypocalcemia with significant findings; examples include: [ ]A. Altered mental status [ ]B. Muscle spasms [ ]C. Seizures [ ]D. Breathing difficulty [ ]E. Cardiac abnormality (eg, arrhythmia , conduction disturbance) [ ]3) Associated hypokalemia (potassium less than 3 mEq/L (mmol/L)) with risk of arrhythmia [ ]xix) Magnesium greater than 4 mEq/L (2 mmol/L) [ ]xx) Magnesium greater than 2.5 mEq/L (1.25 mmol/L) with significant symptoms or findings; examples include: [ ]1) Weakness [ ]2) Altered mental status [ ]3) Cardiac abnormality (eg, arrhythmia, conduction disturbance) [ ]4) Breathing difficulty [ ]5) Severe medical etiology (eg, renal failure, hypovolemia) [ ]xxi) Uric acid greater than 20 mg/dL (1190 micromoles/L)(76) [ ]xxii) Uric acid greater than 8 mg/dL (476 micromoles/L) with significant symptoms or findings of tumor lysis syndrome; examples include(76): [ ]1) Creatinine greater than 1.5 times upper limit of normal [ ]2) Cardiac abnormality (eg, arrhythmia, conduction disturbance) [ ]3) Seizure [ ]XX. Acute blood loss causing significant abnormality as indicated by ANY ONE of the following(77)(78): [ ]a) Hemoglobin less than 10 g/dL (100 g/L) (not baseline) [ ]b) Hematocrit less than 30% (0.30) (not baseline) [ ]c) Repeat hematocrit decreased more than 2% (0.02) [ ]d) Uncontrolled bleeding [ ]XXI. Severe anemia indicated by ANY ONE of the following(78)(79): [ ]a) Altered mental status [ ]b) Chest pain [ ]c) Exertional dyspnea [ ]d) Syncope [ ]e) Other findings suggesting inadequate perfusion [ ]f) Treatment with transfusion or volume replacement is ineffective at resolving ANY ONE of the following [G]: [ ]i) Tachycardia for age [ ]ii) Orthostatic vital sign changes as indicated by ANY ONE of the following(80): [ ]1) Fall in SBP of 20 mm Hg or more 1 to 3 minutes after patient sits or stands from recumbent position [ ]2) Fall in DBP of 10 mm Hg or more 1 to 3 minutes after patient sits or stands from recumbent position [ ]XXII. High-risk low platelet count as indicated by ANY ONE of the following( 81)(82): [ ]a) Severe or life-threatening bleeding (eg, intracranial, major gastrointestinal, or extensive mucosal bleeding), with any reduced platelet count [ ]b) Platelet count less than 20,000/mm3 (20 x109/L) with any active bleeding [ ]c) Platelet count less than 10,000/mm3 (10 x109/L) with minor purpura or petechiae [ ]d) Platelet count less than 5000/mm3 (5 x109/L) [ ]e) Low platelet count with hemolytic anemia [ ]XXIII. Disseminated intravascular coagulation(77)(83) [ ]XXIV. Severe adverse drug or systemic toxin reaction requiring inpatient treatment; examples include(84)(85): [ ]a) Serotonin syndrome(86) [ ]b) Neuroleptic malignant syndrome(86) [ ]c) Cholinergic syndrome with severe symptoms (eg, bronchorrhea, weakness, mental status changes, seizures) [ ]d) Sympathetic syndrome with severe symptoms (eg, seizures, mental status changes, cardiac dysrhythmias) [ ]e) Anticholinergic syndrome [ ]XXV. Severe pain requiring acute inpatient management as indicated by ALL of the following (87)(88)(89): [ ]a) Continuous or frequent (eg, every 2 to 4 hours) parenteral analgesics required [H] [ ]b) Rapid improvement expected from treatment or acute intervention (eg, surgery, anesthesia procedure) [ ]XXVI.Severe behavioral health issues judged unmanageable at a lower level of care (eg, residential) in a patient who is ANY ONE of the following(91) [ ]a) Acutely suicidal [ ]b) A danger to self (eg, self-mutilating or suicidal behavior) [ ]c) A danger to others (eg, assaultive or homicidal behavior) [ ]d) Incapacitated because of grave disability (eg, inability to provide for self at lower level of care) (92) [X]XXVII. Inpatient monitoring needed; examples include(1)(3)(87)(93)(94)(95)(96 ): [X]a) Vital signs, neurologic signs, or vascular checks more frequently than every 4 hours [ ]b) Cardiac or respiratory monitoring beyond the scope (eg, over 24 hours) of observation care [ ]c) Pulmonary artery catheter monitoring [ ]d) Suspected compartment syndrome(97) (98) [ ]e) Cerebral bleeding, hydrocephalus, or vasospasm monitoring [ ]f) Increased intracranial pressure or cerebral edema monitoring [ ]g) monitoring [ ]XXVIII. Treatment requiring inpatient care; examples include: [ ]a) IV fluid to replace significant ongoing losses (greater than 3 L/m2 per day)(53) [ ]b) High concentration oxygen (greater than 40%)(33)(99)(100) [ ]c) Frequent respiratory therapy (more frequently than every 4 hours) to maintain airflow rates greater than 60% of baseline(33)(99)(100) [ ]d) Epidural analgesia(87) [ ]e) IV anticoagulation, vasoactive, or antiarrhythmic medication(19 )(23) [ ]f) Acute thrombolytics (generally require 24 hours of observation )(101)(102) [ ]XXIX. Emergency procedures needed; examples include: [ ]a) Emergency inpatient surgery [ ]b) Temporary pacemaker placement(103) [ ]c) Chest tube placement with active evacuation (eg, suction, drainage)(104) [ ]d) Emergent cardioversion(105) [ ]e) Emergent cardiac or vascular procedures (eg, cardiac catheterization, angioplasty) (17)(18) [ ]f) Emergent dialysis access placement and institution(10)(106) [ ]g) Emergent pericardiocentesis(107) [ ]h) Emergent plasmapheresis or leukapheresis(83) [ ]i) Emergent tracheostomy The original [employer] content created by [employer] has been revised. The portions of the content which have been revised are identified through the use of italic text or in bold, and [facility] [employer] has neither reviewed nor approved the modified material. All other unmodified content is copyright [employer] Please see references footnoted in the original [employer] edition 2016 PAIN MANAGEMENT GRG Clinical Indications for Admission to Inpatient Care (Place 'X' for any and all applicable criteria): Hospital admission is needed for appropriate care of the patient because of 1 or more of the following are present (1)(2)(3)(4)(5): [ ]I. Severe pain requiring acute inpatient management as indicated by 1 or more of the following (2)(5)(10): [ ]a) Continuous or frequent (eg, every 2 to 4 hours) parenteral analgesics required [A] [ ]b) Necessity (ie, alternative approaches not effective) for analgesic regimen that can only be performed or initiated in inpatient setting [ ]II. Pain causing debilitation to the point of inability to function or be supported at any other level of care [ ]III. Severe side effects from pain medications as indicated by ANY ONE of the following (12)(13)(14)(15): [ ]a) Uncontrollable seizures [ ]b) Cardiac arrhythmias of immediate concern [ ]c) Dehydration that is severe or persistent [ ]d) Vomiting that is severe or persistent [ ]e) Altered mental status that is severe or persistent [ ]f) Obstipation with inadequate GI function to maintain nutrition The original [employer] content created by [employer] has been revised. The portions of the content which have been revised are identified through the use of italic text or in bold, and [employer] has neither reviewed nor approved the modified material. All other unmodified content is copyright [employer] Please see references footnoted in the original [employer] edition 2016 PAT NICHOLS Sep 09, 2016 09:03
[2016-09-09] MEDS: methylPREDNISolone SOD SUCC PF 40 MG/ML VIAL. IV SCH ×2 (09:09→21:02)
[2016-09-09] MEDS ORDERED: LIDOCAINE 2% VISCOUS 15 ML SOLUTION. SWSW PRN (09:30)
[2016-09-09 11:00] VITALS: BP 100/61
--- NOTE | 2016-09-09 13:00 | PDOC ---
PROGRESS NOTES Chief Complaint Chief Complaint mononucleosis with sore throat, fever, body ache hypotension, 2/2 hypovolemia likely SIRS with mono sore throat, appearance of strep, cx neg, rapid strep neg plan: add more lozenge on ceftriaxone, no much help tho on solumedrol pain control full liquid diet hope dc tmr History of Present Illness History of Present Illness strep pcp, neg swab cont ivf, poor PO intake, full liquid diet, advance as able solumedrol bid cepasol lozenge pain control, she declines morphine, makes her feel weird dvt ppx vomited 09/08 still very hard to swallow with pain, not much improvement since admission as per pt and mother Vitals Vitals Vital Signs Date Time Temp Pulse Resp B/P (MAP) Pulse Ox O2 Delivery O2 Flow Rate FiO2 09/09/16 11:00 98.4 75 18 100/61 (74) Room Air 98.4 09/09/16 07:00 95 Physical Exam Physical Exam erythema to post pharynx, with swollen tonsils with white exudate in patches General: Alert, Oriented X3, Cooperative, mild distress Heart: Regular rate Lungs: Clear, Wheezing Abdomen: Normal bowel sounds Extremities: No clubbing, No cyanosis Review of Systems Review of Systems no fever, chills, sob or chest pain Assessment and Plan Assessmemt and Plan Problems Medical Problems: (1) Fever Status: Acute (2) Mononucleosis Status: Acute Problems: Comment Review of Relevant I have reviewed the following items isaac (where applicable) has been applied. Labs Microbiology 09/06/16 Throat Culture - Preliminary, Resulted 09/06/16 - Preliminary, Resulted Medications Current Medications Sodium Chloride 1,000 ml @ 1,000 mls/hr 1X ONCE IV Last administered on 09:45; Start 09/06/16 at 09:45; Stop 09/06/16 at 10:44; Status DC Iohexol (Omnipaque 300 Mg/ml) 75 ml 1X ONCE IV Last administered on 09/06/16 09:56; Start 09/06/16 at 10:00; Stop 09/06/16 at 10:01; Status DC Info (Do NOT chart on this entry -- for MONITORING) 1 each PRN DAILY PRN MC SEE COMMENTS; Start 09/06/16 at 10:00; Stop 09/08/16 at 09:59; Status DC Acetaminophen (Tylenol) 1,000 mg 1X ONCE PO Last administered on 09/06/16 11: 18; Start 09/06/16 at 11:30; Stop 09/06/16 at 11:31; Status DC Ondansetron HCl (Zofran) 4 mg PRN Q8HRS PRN IV NAUSEA/VOMITING; Start 09/06/16 at 12:15; Stop 09/07/16 at 10:24; Status DC Fentanyl Citrate (Fentanyl 2ml Vial) 50 mcg PRN Q2HR PRN IV PAIN; Start at 12:15; Stop 09/07/16 at 12:14; Status DC Dextrose/Sodium Chloride 1,000 ml @ 100 mls/hr 1X ONCE IV Last administered on 09/06/16 12:15; Start 09/06/16 at 12:15; Stop 09/06/16 at 22:14; Status DC Guaifenesin/ Codeine Phosphate (Robitussin Ac) 10 ml Q8HRS PO Last administered on 09/09/16 06:26; Start 09/06/16 at 14:45 Non-Formulary Medication 1 tab DAILY PO ; Start 09/07/16 at 09:00; Stop at 09:00; Status DC Acetaminophen (Tylenol) 650 mg PRN Q6HRS PRN PO FEVER Last administered on 09/07 15:13; Start 09/06/16 at 14:15 Ondansetron HCl (Zofran) 4 mg PRN Q6HRS PRN IV NAUSEA/VOMITING Last administered on 09/08/16 18:14; Start 09/06/16 at 14:15 Morphine Sulfate 2 mg PRN Q2HR PRN IV PAIN Last administered on 09/07/16 18:58 ; Start 09/06/16 at 14:15 Tramadol HCl (Ultram) 50 mg PRN Q6HRS PRN PO PAIN Last administered on 02:10; Start 09/06/16 at 14:15 Hydralazine HCl (Apresoline) 10 mg PRN Q4HRS PRN IVP ELEVATED BP, SEE COMMENTS ; Start 09/06/16 at 14:15 Docusate Sodium (Colace) 100 mg PRN DAILY PRN PO CONSTIPATION; Start 09/06/16 at 14:15 Sodium Chloride 1,000 ml @ 100 mls/hr Q10H IV Last administered on 09/06/16 21:38; Start 09/06/16 at 14:15; Stop 09/07/16 at 09:29; Status DC Throat Lozenges (Cepacol Sore Throat Lozenge) 1 levi PRN Q2HRS PRN PO SORE THROAT Last administered on 09/06/16 17:20; Start 09/06/16 at 14:15; Stop 09/07 at 10:24; Status DC Pantoprazole Sodium (Protonix) 40 mg DAILYAC PO Last administered on 09/09/16 07:38; Start 09/07/16 at 16:30 Methylprednisolone Sodium Succinate (SOLU-Medrol 40MG VIAL) 40 mg Q12HR IV Last administered on 09/09/16 09:09; Start 09/06/16 at 15:00 Enoxaparin Sodium (Lovenox 40mg Syringe) 40 mg Q24H SQ Last administered on 15:21; Start 09/06/16 at 15:00 Amoxicillin/ Clavulanate Potassium (Augmentin 875/ 125mg) 1 tab BID PO ; Start 09/06/16 at 21:00; Stop 09/06/16 at 21:00; Status DC Potassium Chloride/Dextrose/ Sod Cl 1,000 ml @ 100 mls/hr Q10H IV Last administered on 09/08/16 10:50; Start 09/07/16 at 09:30 Throat Lozenges (Cepacol Sore Throat Lozenge) 1 levi PRN Q2HRS PRN PO SORE THROAT Last administered on 09/07/16 15:16; Start 09/07/16 at 09:45 Throat Lozenges (Chloraseptic) 2 spray PRN Q2HR PRN PO SORE THROAT Last administered on 09/08/16 08:32; Start 09/07/16 at 09:45 Ceftriaxone Sodium 1 gm/ Sodium Chloride 50 ml @ 100 mls/hr Q24H IV Last administered on 09/07/16 10:30; Start 09/07/16 at 10:00; Stop 09/08/16 at 09:40 ; Status DC Ceftriaxone Sodium 1 gm/ Sodium Chloride 50 ml @ 100 mls/hr Q24H IV Last administered on 09/08/16t 10:00; Start 09/08/16 at 10:00 Lidocaine HCl (Viscous Lidocaine) 15 ml PRN Q4HRS PRN SWSW MOUTH PAIN; Start at 09:30 Active Scripts Active Prednisone 50 Mg Tablet 1 Tab PO DAILY Augmentin 875-125 Tablet (Amoxicillin/Potassium Clav) 1 Each Tablet 1 Tab PO BID Zofran Odt (Ondansetron) 4 Mg Tab.rapdis 1 Tab SL Q8HRS Codeine-Guaifen 10-100 mg/5 ml (Guaifenesin/Codeine Phosphate) 120 Ml Liquid 10 Ml PO Q8HRS Zithromax (Azithromycin) 250 Mg Tablet 1 Pkg PO UD Take 2 tablets on day 1 and then 1 tablet each day for the next 4 days as directed Vitals/I & O Vital Sign - Last 24 Hours 09/08/16 09/08/16 09/08/16 09/08/16 15:00 19:00 20:00 23:00 Temp 97.8 99.0 97.9 97.8 99.0 97.9 Pulse 76 83 73 Resp 18 18 18 B/P (MAP) 106/68 (81) 103/56 (72) 112/74 (87) Pulse Ox 96 95 97 O2 Delivery Room Air Room Air Room Air Room Air 09/09/16 09/09/16 09/09/16 09/09/16 02:10 03:00 07:00 08:00 Temp 96.6 97.7 96.6 97.7 Pulse 73 67 Resp 18 17 B/P (MAP) 102/71 (81) 113/69 (84) Pulse Ox 97 97 95 O2 Delivery Room Air Room Air Room Air Room Air 09/09/16 11:00 Temp 98.4 98.4 Pulse 75 Resp 18 B/P (MAP) 100/61 (74) O2 Delivery Room Air Intake and Output 09/08/16 09/08/16 09/09/16 14:59 22:59 06:59 Intake Total 550 ml 1100 ml Balance 550 ml 1100 ml DARNELL SHAFFER MD Sep 09, 2016 13:00
[2016-09-09] MEDS: ACETAMINOPHEN 325 MG TABLET. PO PRN (13:06)
[2016-09-09] MEDS: ENOXAPARIN 40 MG/0.4 ML SYRINGE. SQ SCH (14:36)
[2016-09-09 15:00] VITALS: BP 101/62
[2016-09-09] MEDS: POTASSIUM CL 20MEQ D5-0.45NACL 1,000 ML IV SCH ×2 (18:24→18:37)
[2016-09-09 19:00] VITALS: BP 107/69
[2016-09-09 23:00] VITALS: BP 111/72
[2016-09-10 03:00] VITALS: BP 103/67
[2016-09-10] MEDS: guaiFENesin/CODEINE 100mg/10mg 5 ML LIQUID PO SCH ×3 (06:26→21:47)
[2016-09-10] MEDS: traMADol 50 MG TABLET PO PRN (06:26)
[2016-09-10 07:00] VITALS: BP 102/63
[2016-09-10] MEDS: PANTOPRAZOLE 40 MG TABLET.DR. PO SCH (08:02)
[2016-09-10 08:14] LABS: BASO % 0 % (0-3); EOS % 0 % (0-3); HEMATOCRIT 41.4 % (36.0-47.0); LYMPH # 1.5 x10^3/uL (1.0-4.8); LYMPH % 15 % (24-48); MEAN CORPUSCULAR HEMOGLOBIN 32 pg (25-35); MEAN CORPUSCULAR HGB CONC 34 g/dL (31-37); MEAN CORPUSCULAR VOLUME 94 fL (79-100); MONO % 12 % (0-9); NEUT % 73 % (31-73); PLATELET COUNT 352 x10^3/uL (140-400); RED BLOOD COUNT 4.43 x10^6/uL (3.50-5.40); RED CELL DISTRIBUTION WIDTH 12.7 % (11.5-14.5); WHITE BLOOD COUNT 9.8 x10^3/uL (4.0-11.0)
[2016-09-10 08:34] LABS: CALCIUM 9.2 mg/dL (8.5-10.1); CREATININE 0.6 mg/dL (0.6-1.0); GFR 120.8; POTASSIUM 4.3 mmol/L (3.5-5.1)
[2016-09-10] MEDS: methylPREDNISolone SOD SUCC PF 40 MG/ML VIAL. IV SCH ×2 (09:16→21:47)
[2016-09-10 11:00] VITALS: BP 103/65
--- NOTE | 2016-09-10 12:46 | PDOC ---
PROGRESS NOTES Chief Complaint Chief Complaint mononucleosis with sore throat, fever, body ache hypotension, 2/2 hypovolemia likely SIRS with mono sore throat, appearance of strep, cx neg, rapid strep neg History of Present Illness History of Present Illness strep pcp, neg swab cont ivf, poor PO intake, full liquid diet, advance as able solumedrol bid cepasol lozenge PRN pain control, she declines morphine, makes her feel weird dvt ppx vomited 09/08 still very hard to swallow with pain, some improvement since admission - pt not ready to go home DC tele I would forsee that she may be able to DC tomorrow Vitals Vitals Vital Signs Date Time Temp Pulse Resp B/P (MAP) Pulse Ox O2 Delivery O2 Flow Rate FiO2 09/10/16 08:00 Room Air 09/10/16 07:26 16 97 09/10/16 07:00 98.0 53 102/63 (76) 98.0 Physical Exam Physical Exam erythema to post pharynx, with swollen tonsils with white exudate in patches General: Alert, Oriented X3, Cooperative, mild distress Heart: Regular rate Lungs: Clear, Wheezing Abdomen: Normal bowel sounds Extremities: No clubbing, No cyanosis Skin: No rashes Labs LABS Laboratory Tests Test 09/10/16 07:20 White Blood Count 9.8 x10^3/uL (4.0-11.0) Red Blood Count 4.43 x10^6/uL (3.50-5.40) Hemoglobin 14.0 g/dL (12.0-15.5) Hematocrit 41.4 % (36.0-47.0) Mean Corpuscular Volume 94 fL (79-100) Mean Corpuscular Hemoglobin 32 pg (25-35) Mean Corpuscular Hemoglobin Concent 34 g/dL (31-37) Red Cell Distribution Width 12.7 % (11.5-14.5) Platelet Count 352 x10^3/uL (140-400) Neutrophils (%) (Auto) 73 % (31-73) Lymphocytes (%) (Auto) 15 % (24-48) Monocytes (%) (Auto) 12 % (0-9) Eosinophils (%) (Auto) 0 % (0-3) Basophils (%) (Auto) 0 % (0-3) Neutrophils # (Auto) 7.1 x10^3uL (1.8-7.7) Lymphocytes # (Auto) 1.5 x10^3/uL (1.0-4.8) Monocytes # (Auto) 1.2 x10^3/uL (0.0-1.1) Eosinophils # (Auto) 0.0 x10^3/uL (0.0-0.7) Basophils # (Auto) 0.0 x10^3/uL (0.0-0.2) Sodium Level 137 mmol/L (136-145) Potassium Level 4.3 mmol/L (3.5-5.1) Chloride Level 101 mmol/L (98-107) Carbon Dioxide Level 34 mmol/L (21-32) Anion Gap 2 (6-14) Blood Urea Nitrogen 8 mg/dL (7-20) Creatinine 0.6 mg/dL (0.6-1.0) Estimated GFR (Cockcroft-Gault) 120.8 Glucose Level 106 mg/dL (70-99) Calcium Level 9.2 mg/dL (8.5-10.1) Review of Systems Review of Systems no n.v.d Assessment and Plan Assessmemt and Plan Problems Medical Problems: (1) Fever Status: Acute (2) Mononucleosis Status: Acute Problems: Comment Review of Relevant I have reviewed the following items isaac (where applicable) has been applied. Labs Laboratory Tests Test 09/10/16 07:20 White Blood Count 9.8 x10^3/uL (4.0-11.0) Red Blood Count 4.43 x10^6/uL (3.50-5.40) Hemoglobin 14.0 g/dL (12.0-15.5) Hematocrit 41.4 % (36.0-47.0) Mean Corpuscular Volume 94 fL (79-100) Mean Corpuscular Hemoglobin 32 pg (25-35) Mean Corpuscular Hemoglobin Concent 34 g/dL (31-37) Red Cell Distribution Width 12.7 % (11.5-14.5) Platelet Count 352 x10^3/uL (140-400) Neutrophils (%) (Auto) 73 % (31-73) Lymphocytes (%) (Auto) 15 % (24-48) Monocytes (%) (Auto) 12 % (0-9) Eosinophils (%) (Auto) 0 % (0-3) Basophils (%) (Auto) 0 % (0-3) Neutrophils # (Auto) 7.1 x10^3uL (1.8-7.7) Lymphocytes # (Auto) 1.5 x10^3/uL (1.0-4.8) Monocytes # (Auto) 1.2 x10^3/uL (0.0-1.1) Eosinophils # (Auto) 0.0 x10^3/uL (0.0-0.7) Basophils # (Auto) 0.0 x10^3/uL (0.0-0.2) Sodium Level 137 mmol/L (136-145) Potassium Level 4.3 mmol/L (3.5-5.1) Chloride Level 101 mmol/L (98-107) Carbon Dioxide Level 34 mmol/L (21-32) Anion Gap 2 (6-14) Blood Urea Nitrogen 8 mg/dL (7-20) Creatinine 0.6 mg/dL (0.6-1.0) Estimated GFR (Cockcroft-Gault) 120.8 Glucose Level 106 mg/dL (70-99) Calcium Level 9.2 mg/dL (8.5-10.1) Laboratory Tests Test 09/10/16 07:20 White Blood Count 9.8 x10^3/uL (4.0-11.0) Red Blood Count 4.43 x10^6/uL (3.50-5.40) Hemoglobin 14.0 g/dL (12.0-15.5) Hematocrit 41.4 % (36.0-47.0) Mean Corpuscular Volume 94 fL (79-100) Mean Corpuscular Hemoglobin 32 pg (25-35) Mean Corpuscular Hemoglobin Concent 34 g/dL (31-37) Red Cell Distribution Width 12.7 % (11.5-14.5) Platelet Count 352 x10^3/uL (140-400) Neutrophils (%) (Auto) 73 % (31-73) Lymphocytes (%) (Auto) 15 % (24-48) Monocytes (%) (Auto) 12 % (0-9) Eosinophils (%) (Auto) 0 % (0-3) Basophils (%) (Auto) 0 % (0-3) Neutrophils # (Auto) 7.1 x10^3uL (1.8-7.7) Lymphocytes # (Auto) 1.5 x10^3/uL (1.0-4.8) Monocytes # (Auto) 1.2 x10^3/uL (0.0-1.1) Eosinophils # (Auto) 0.0 x10^3/uL (0.0-0.7) Basophils # (Auto) 0.0 x10^3/uL (0.0-0.2) Sodium Level 137 mmol/L (136-145) Potassium Level 4.3 mmol/L (3.5-5.1) Chloride Level 101 mmol/L (98-107) Carbon Dioxide Level 34 mmol/L (21-32) Anion Gap 2 (6-14) Blood Urea Nitrogen 8 mg/dL (7-20) Creatinine 0.6 mg/dL (0.6-1.0) Estimated GFR (Cockcroft-Gault) 120.8 Glucose Level 106 mg/dL (70-99) Calcium Level 9.2 mg/dL (8.5-10.1) Microbiology 09/06/16 Throat Culture - Final, Complete 09/06/16 - Final, Complete Medications Current Medications Sodium Chloride 1,000 ml @ 1,000 mls/hr 1X ONCE IV Last administered on 09:45; Start 09/06/16 at 09:45; Stop 09/06/16 at 10:44; Status DC Iohexol (Omnipaque 300 Mg/ml) 75 ml 1X ONCE IV Last administered on 09/06/16 09:56; Start 09/06/16 at 10:00; Stop 09/06/16 at 10:01; Status DC Info (Do NOT chart on this entry -- for MONITORING) 1 each PRN DAILY PRN MC SEE COMMENTS; Start 09/06/16 at 10:00; Stop 09/08/16 at 09:59; Status DC Acetaminophen (Tylenol) 1,000 mg 1X ONCE PO Last administered on 09/06/16 11: 18; Start 09/06/16 at 11:30; Stop 09/06/16 at 11:31; Status DC Ondansetron HCl (Zofran) 4 mg PRN Q8HRS PRN IV NAUSEA/VOMITING; Start 09/06/16 at 12:15; Stop 09/07/16 at 10:24; Status DC Fentanyl Citrate (Fentanyl 2ml Vial) 50 mcg PRN Q2HR PRN IV PAIN; Start at 12:15; Stop 09/07/16 at 12:14; Status DC Dextrose/Sodium Chloride 1,000 ml @ 100 mls/hr 1X ONCE IV Last administered on 09/06/16 12:15; Start 09/06/16 at 12:15; Stop 09/06/16 at 22:14; Status DC Guaifenesin/ Codeine Phosphate (Robitussin Ac) 10 ml Q8HRS PO Last administered on 09/10/16 06:26; Start 09/06/16 at 14:45 Non-Formulary Medication 1 tab DAILY PO ; Start 09/07/16 at 09:00; Stop at 09:00; Status DC Acetaminophen (Tylenol) 650 mg PRN Q6HRS PRN PO FEVER Last administered on 09/09 13:06; Start 09/06/16 at 14:15 Ondansetron HCl (Zofran) 4 mg PRN Q6HRS PRN IV NAUSEA/VOMITING Last administered on 09/08/16 18:14; Start 09/06/16 at 14:15 Morphine Sulfate 2 mg PRN Q2HR PRN IV PAIN Last administered on 09/07/16 18:58 ; Start 09/06/16 at 14:15 Tramadol HCl (Ultram) 50 mg PRN Q6HRS PRN PO PAIN Last administered on 06:26; Start 09/06/16 at 14:15 Hydralazine HCl (Apresoline) 10 mg PRN Q4HRS PRN IVP ELEVATED BP, SEE COMMENTS ; Start 09/06/16 at 14:15 Docusate Sodium (Colace) 100 mg PRN DAILY PRN PO CONSTIPATION; Start 09/06/16 at 14:15 Sodium Chloride 1,000 ml @ 100 mls/hr Q10H IV Last administered on 09/06/16 21:38; Start 09/06/16 at 14:15; Stop 09/07/16 at 09:29; Status DC Throat Lozenges (Cepacol Sore Throat Lozenge) 1 levi PRN Q2HRS PRN PO SORE THROAT Last administered on 09/06/16 17:20; Start 09/06/16 at 14:15; Stop 09/07 at 10:24; Status DC Pantoprazole Sodium (Protonix) 40 mg DAILYAC PO Last administered on 09/10/16 08:02; Start 09/07/16 at 16:30 Methylprednisolone Sodium Succinate (SOLU-Medrol 40MG VIAL) 40 mg Q12HR IV Last administered on 09/10/16 09:16; Start 09/06/16 at 15:00 Enoxaparin Sodium (Lovenox 40mg Syringe) 40 mg Q24H SQ Last administered on 14:36; Start 09/06/16 at 15:00 Amoxicillin/ Clavulanate Potassium (Augmentin 875/ 125mg) 1 tab BID PO ; Start 09/06/16 at 21:00; Stop 09/06/16 at 21:00; Status DC Potassium Chloride/Dextrose/ Sod Cl 1,000 ml @ 100 mls/hr Q10H IV Last administered on 09/09/16 18:24; Start 09/07/16 at 09:30; Stop 09/09/16 at 18:32 ; Status DC Throat Lozenges (Cepacol Sore Throat Lozenge) 1 levi PRN Q2HRS PRN PO SORE THROAT Last administered on 09/07/16 15:16; Start 09/07/16 at 09:45 Throat Lozenges (Chloraseptic) 2 spray PRN Q2HR PRN PO SORE THROAT Last administered on 09/08/16 08:32; Start 09/07/16 at 09:45 Ceftriaxone Sodium 1 gm/ Sodium Chloride 50 ml @ 100 mls/hr Q24H IV Last administered on 09/07/16 10:30; Start 09/07/16 at 10:00; Stop 09/08/16 at 09:40 ; Status DC Ceftriaxone Sodium 1 gm/ Sodium Chloride 50 ml @ 100 mls/hr Q24H IV Last administered on 09/08/16 10:00; Start 09/08/16 at 10:00; Stop 09/09/16 at 14:00 ; Status DC Lidocaine HCl (Viscous Lidocaine) 15 ml PRN Q4HRS PRN SWSW MOUTH PAIN; Start at 09:30 Ceftriaxone Sodium 1 gm/ Sodium Chloride 50 ml @ 100 mls/hr Q24H IV Last administered on 09/09/16 14:36; Start 09/09/16 at 15:00 Potassium Chloride/Dextrose/ Sod Cl 1,000 ml @ 50 mls/hr Q20H IV Last administered on 09/09/16 18:37; Start 09/09/16 at 18:45 Active Scripts Active Prednisone 50 Mg Tablet 1 Tab PO DAILY Augmentin 875-125 Tablet (Amoxicillin/Potassium Clav) 1 Each Tablet 1 Tab PO BID Zofran Odt (Ondansetron) 4 Mg Tab.rapdis 1 Tab SL Q8HRS Codeine-Guaifen 10-100 mg/5 ml (Guaifenesin/Codeine Phosphate) 120 Ml Liquid 10 Ml PO Q8HRS Zithromax (Azithromycin) 250 Mg Tablet 1 Pkg PO UD Take 2 tablets on day 1 and then 1 tablet each day for the next 4 days as directed Vitals/I & O Vital Sign - Last 24 Hours 09/09/16 09/09/16 09/09/16 09/09/16 15:00 19:00 20:00 23:00 Temp 97.7 97.9 97.9 97.7 97.9 97.9 Pulse 55 65 54 Resp 16 18 18 B/P (MAP) 101/62 (75) 107/69 (82) 111/72 (85) Pulse Ox 96 97 96 O2 Delivery Room Air Room Air Room Air Room Air 09/10/16 09/10/16 09/10/16 09/10/16 03:00 06:26 07:00 07:26 Temp 97.5 98.0 97.5 98.0 Pulse 66 53 Resp 18 17 16 B/P (MAP) 103/67 (79) 102/63 (76) Pulse Ox 97 97 97 97 O2 Delivery Room Air Room Air Room Air Room Air 09/10/16 08:00 O2 Delivery Room Air Intake and Output 09/09/16 09/09/16 09/10/16 15:00 23:00 07:00 Intake Total 950 ml Output Total 0 ml Balance 950 ml 0 ml REGINA MILLS MD Sep 10, 2016 12:46
[2016-09-10 15:00] VITALS: BP 115/72
[2016-09-10] MEDS: ENOXAPARIN 40 MG/0.4 ML SYRINGE. SQ SCH (16:50)
[2016-09-10 19:00] VITALS: BP 104/69
[2016-09-10] MEDS: POTASSIUM CL 20MEQ D5-0.45NACL 1,000 ML IV SCH (22:16)
[2016-09-10 23:00] VITALS: BP 105/67
[2016-09-11 03:00] VITALS: BP 106/63
[2016-09-11] MEDS: guaiFENesin/CODEINE 100mg/10mg 5 ML LIQUID PO SCH (06:23)
[2016-09-11 07:00] VITALS: BP 99/56
[2016-09-11] MEDS: methylPREDNISolone SOD SUCC PF 40 MG/ML VIAL. IV SCH (08:28)
[2016-09-11] MEDS: PANTOPRAZOLE 40 MG TABLET.DR. PO SCH (08:28)
[2016-09-11] MEDS ORDERED: TRAM50TA PO (10:37)
[2016-09-11] MEDS: POTASSIUM CL 20MEQ D5-0.45NACL 1,000 ML IV SCH (10:45)
[2016-09-11 11:00] VITALS: BP 98/63
--- NOTE | 2016-09-11 12:39 | PDOC3 ---
Discharge Summary [facility] Date of Admission: Sep 06, 2016 Discharge Date: Sep 11, 2016 Admitting Diagnosis mononucleosis with sore throat, fever, body ache hypotension, 2/2 hypovolemia likely SIRS with mono sore throat, appearance of strep, cx neg, rapid strep neg Problems: Final Diagnosis Brief Hospital Course Patient is a 26 year old female came here for fever, sore throat and body ache for 3-4 days. Pt was here in ER for same reason, fever 102, + mono, neg flu and strep rapid test. She was given prednisone 50mg daily and didnot help. Pt feels cont body ache, hard to swallow food, low appetite, T 101.8 in ER, BP 70s. RAPID strep neg, cx neg pt slowly improving with ceftriaxone, steroid, lozenge. dc home with only tramadol. dc time 35min Physical Exam erythema to post pharynx, with swollen tonsils with white exudate in patches, much better than admission General: Alert, Oriented X3, Cooperative, mild distress Heart: Regular rate Lungs: Clear, Wheezing Abdomen: Normal bowel sounds Extremities: No clubbing, No cyanosis Skin: No rashes Patient History: FH: schizophrenia 33 FATHER Pacemaker 32 MOTHER Problems: Disposition home CONDITION AT DISCHARGE: Improved Diet gi soft Scheduled Ondansetron (Zofran Odt), 1 TAB SL Q8HRS Scheduled PRN Tramadol Hcl (Tramadol Hcl), 50 MG PO PRN Q6HRS PRN for PAIN Discontinued Medications Amoxicillin/Potassium Clav (Augmentin 875-125 Tablet), 1 TAB PO BID Azithromycin (Zithromax), 1 PKG PO UD Guaifenesin/Codeine Phosphate (Codeine-Guaifen 10-100 mg/5 ml), 10 ML PO Q8HRS Prednisone (Prednisone), 1 TAB PO DAILY Follow Up pcp in 2weeks DARNELL SHAFFER MD Sep 11, 2016 12:38
== END 2016-09-11 13:06 | disposition home or self-care (01) | DRG 872 ==
LOC: ER 08:57 → 5 NORTH 11:30 → OBSVTOIN 09-09 08:43
PROVIDERS: ADMIT Internal Medicine; ATTEND Internal Medicine
DX: A41.9 Sepsis, unspecified organism (principal); E44.1 Mild protein-calorie malnutrition; B27.99 Infectious mononucleosis, unspecified with other complication; K21.9 Gastro-esophageal reflux disease without esophagitis; G43.909 Migraine, unspecified, not intractable, without status migrainosus; J02.9 Acute pharyngitis, unspecified; E86.1 Hypovolemia; K59.00 Constipation, unspecified; Z82.49 Family history of ischemic heart disease and other diseases of the circulatory system; Z88.2 Allergy status to sulfonamides; I95.9 Hypotension, unspecified
CPT/HCPCS: 36415; 71010; 74177; 80048; 80076; 81001; 81025; 85007; 85027; 85610; 85730; 87070; 87880; G0378; G0379; J0696; J1650; J2270; J2405; J2920; J7030; Q9967

== ENCOUNTER 2016-11-07 07:53 | Emergency (ER) | payer MEDICARE, OTHER ==
[~2016-11-07] VITALS: Ht 152.4 cm; Wt 59.0 kg
[~2016-11-07 07:53] MED LIST changes: +TRAM50TA PO
--- NOTE | 2016-11-07 08:42 | PHYS DOC ---
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 Patient states she no official diagnosis of migraines however believes this one is a migraine and has a family history of migraines. Patient denies any fevers. Patient denies any neck pain or neck stiffness. Patient states the pain is behind her eyes mostly in the right with some blurry vision. Patient states the headache came on gradual and not all of a sudden. Patient's been taking Tylenol and Motrin throughout the week with some slight improvement and the patient was able to attend work Tuesday and Tuesday however has been off work since then secondary to the headache. Patient came to the emergency room today for just worsening symptoms. Patient denies any nausea vomiting or diarrhea. Patient denies any chest pain shortness of breath. Patient has no other complaints. Review of Systems Review of Systems GEN: Denies fevers, chills, sweats HEENT: Denies blurred vision, sore throat CV: Denies chest pain RESP: Denies shortness of air, cough GI: Denies n/v/d NEURO: Headache MSK: Denies weakness, joint pain/swelling Current Medications Current Medications Current Medications Medications (Trade) Dose Ordered Sig/Deborah Start Time Stop Time Status Last Admin Dose Admin Dexamethasone Sodium Phosphate (Decadron) 10 mg 1X ONCE 11/07/16 08:45 11/07/16 08:46 DC 11/07/16 08:57 10 MG Diphenhydramine HCl (Benadryl) 50 mg 1X ONCE 11/07/16 08:45 11/07/16 08:46 DC 11/07/16 08:58 50 MG Ketorolac Tromethamine (Toradol) 30 mg 1X ONCE 11/07/16 10:00 11/07/16 10:01 DC 11/07/16 10:07 30 MG Magnesium Sulfate/ Dextrose 50 ml @ 25 mls/hr 1X ONCE 11/07/16 08:45 11/07/16 10:44 DC 11/07/16 08:59 25 MLS/HR Metoclopramide HCl (Reglan) 10 mg 1X ONCE 11/07/16 08:45 11/07/16 08:46 DC 11/07/16 09:00 10 MG Sodium Chloride 1,000 ml @ 1,000 mls/hr 1X ONCE 11/07/16 08:45 11/07/16 09:44 DC 11/07/16 08:58 1,000 MLS/HR Allergies Allergies Allergies Coded Allergies Type Severity Reaction Last Updated Verified Sulfa (Sulfonamide Antibiotics) Allergy Intermediate hives 08/07/13 Yes Physical Exam Physical Exam GEN.: No apparent distress. Alert and oriented. HEENT: Head is normocephalic, atraumatic NECK: Supple. LUNGS: CTAB. HEART: RRR, S1, S2 present. Peripheral pulses intact ABDOMEN: Soft, nontender. Positive bowel sounds. EXTREMITIES: Without any cyanosis. NEUROLOGIC: Normal speech, normal tone PSYCHIATRIC: Normal affect, normal mood. SKIN: No ulcerations Current Patient Data Vital Signs Vital Signs Date Time Temp Pulse Resp B/P (MAP) Pulse Ox O2 Delivery O2 Flow Rate FiO2 11/07/16 09:35 77 20 104/61 (75) 100 11/07/16 07:55 97.5 97.5 Lab Values Laboratory Tests Test 11/07/16 07:21 POC Urine HCG, Qualitative Hcg negative (Negative) EKG EKG [] Radiology/Procedures Radiology/Procedures CT scan of the head Findings: Head: The ventricles and subarachnoid spaces are normal in size and configuration. No acute intracranial hemorrhage or extra-axial fluid collection. The basal cisterns are patent. No midline shift or mass effect. The sarmiento-white interfaces are maintained. Visualized mastoid air cells and paranasal sinuses are within normal limits. Impression: No acute intracranial hemorrhage or mass effect.[] Course & Med Decision Making Course & Med Decision Making Pertinent Labs and Imaging studies reviewed. (See chart for details) ED course: Patient was seen and examined emergency room, CT scan of the head without contrast was ordered, 10 mg Reglan, 50mg Benadryl, 2 g of magnesium sulfate, 1 L normal saline were ordered 1048: Patient was reevaluated and her headache is improved and wanted to go home. Recommended follow-up with PCP for further evaluation and management for her headaches. MDM: After reviewing the chart, CC/HPI/PMH, physical exam, [radiological results], I do not believe the patient has an acute intracranial process warranting further workup and/or admission at this time. Based on the patient's co-exam findings and history of present illness I have a low suspicion for an acute subarachnoid hemorrhage and do not believe it LP is indicated at this time. On reexamination the patient's headache is improved and she would like to go home. Recommended follow-up with PCP for further evaluation. Additional verbal discharge instructions were provided to the patient and that if symptoms get worse or any new symptoms arise that are worrisome to the patient she is to return to the emergency room immediately [] Dragon Disclaimer Dragon Disclaimer This electronic medical record was generated, in whole or in part, using a voice recognition dictation system. Departure Departure Impression: Primary Impression: Headache Disposition: 01 HOME, SELF-CARE Condition: IMPROVED Referrals: NANDO CORDERO MD (PCP) Patient Instructions: Epidural Blood Patching in Spinal Headache Additional Instructions: Please follow up with her family doctor next one to 2 days for further evaluation and management of your headache Scripts Butalb/Acetaminophen/Caffeine ([id number] [id number]) 1 Each Capsule 1 EACH PO Q4-6HRS Y for HEADACHE for 5 Days, #20 CAP Prov: CHRISTA MARTI DO 11/07/16 CHRISTA MARTI DO Nov 07, 2016 08:42
[2016-11-07] MEDS ORDERED: DEXAMETHASONE SOD PHOS 4 MG/ML VIAL IV ONE (08:45)
[2016-11-07] MEDS ORDERED: IV NORMAL SALINE 1000ML BAG 1,000 ML IV ONE (08:45)
[2016-11-07] MEDS ORDERED: MAGNESIUM SULFATE 2GM 50 ML IV ONE (08:45)
[2016-11-07] MEDS ORDERED: diphenhydrAMINE 50 MG/ML VIAL IVP ONE (08:45)
[2016-11-07] MEDS ORDERED: METOCLOPRAMIDE HCL 10 MG/2 ML VIAL. IV ONE (08:45)
[2016-11-07 09:35] VITALS: BP 104/61
[2016-11-07] MEDS ORDERED: KETOROLAC TROMETHAMINE 30 MG/ML INJ. IV ONE (10:00)
--- NOTE | 2016-11-07 10:32 | RAD ---
CT head without contrast 11/07/2016 Clinical indications: Headache for one week with blurry vision. Comparison: CT head 08/09/2012. Technique: Multiple CT images of the head were obtained without contrast according to standard protocol. RS Compliance Statement: One or more of the following individualized dose reduction techniques were utilized for this examination: 1. Automated exposure control 2. Adjustment of the mA and/or kV according to patient size 3. Use of iterative reconstruction technique Findings: Head: The ventricles and subarachnoid spaces are normal in size and configuration. No acute intracranial hemorrhage or extra-axial fluid collection. The basal cisterns are patent. No midline shift or mass effect. The sarmienot-white interfaces are maintained. Visualized mastoid air cells and paranasal sinuses are within normal limits. Impression: No acute intracranial hemorrhage or mass effect.
[2016-11-07] MEDS ORDERED: BUTA1CAP57 PO (10:58)
== END 2016-11-07 11:05 | disposition home or self-care (01) ==
LOC: ER 07:53
DX: R51 Headache (principal); H53.8 Other visual disturbances; F41.9 Anxiety disorder, unspecified; K21.9 Gastro-esophageal reflux disease without esophagitis; Z88.2 Allergy status to sulfonamides
CPT/HCPCS: 70450; 81025; 96365; 96375; 99284; J1100; J1200; J1885; J2765; J7030; J7060

== ENCOUNTER 2017-01-28 22:04 | Emergency (ER) | payer MEDICARE, OTHER ==
[~2017-01-28] VITALS: Ht 154.9 cm; Wt 59.0 kg
[~2017-01-28 22:04] MED LIST changes: +BUTA1CAP57 PO
[2017-01-28 22:08] VITALS: BP 130/60
[2017-01-28] MEDS ORDERED: PRED50TA PO (22:24)
[2017-01-28] MEDS ORDERED: AMOX875T PO (22:24)
--- NOTE | 2017-01-28 22:25 | PHYS DOC ---
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 Patient denies any fever. Review of Systems Review of Systems Constitutional: Denies fever or chills [] Eyes: Denies change in visual acuity, redness, or eye pain [] HENT: ear pain, nasal congestion and sore throat [] Respiratory: Denies cough or shortness of breath [] Cardiovascular: No additional information not addressed in HPI [] GI: Denies abdominal pain, nausea, vomiting, bloody stools or diarrhea [] : Denies dysuria or hematuria [] Musculoskeletal: Denies back pain or joint pain [] Integument: Denies rash or skin lesions [] Neurologic: Denies headache, focal weakness or sensory changes [] All other systems were reviewed and found to be within normal limits, except as documented in this note. Allergies Allergies Allergies Coded Allergies Type Severity Reaction Last Updated Verified Sulfa (Sulfonamide Antibiotics) Allergy Intermediate hives 08/07/13 Yes Physical Exam Physical Exam Constitutional: Well developed, well nourished, no acute distress, non-toxic appearance. [] HENT: Normocephalic, atraumatic, bilateral external ears normal, oropharynx moist, no oral exudates, nose normal. [] Bilateral TM are mildly injected. Posterior pharynx with mild erythema no exudate. Voice is hoarse Eyes: PERRLA, EOMI, conjunctiva normal, no discharge. [] Neck: Normal range of motion, no tenderness, supple, no stridor. [] Cardiovascular:Heart rate regular rhythm, no murmur [] Lungs & Thorax: Bilateral breath sounds clear to auscultation [] Abdomen: Bowel sounds normal, soft, no tenderness, no masses, no pulsatile masses. [] Skin: Warm, dry, no erythema, no rash. [] Back: No tenderness, no CVA tenderness. [] Extremities: No tenderness, no cyanosis, no clubbing, ROM intact, no edema. [] Neurologic: Alert and oriented X 3, normal motor function, normal sensory function, no focal deficits noted. [] Psychologic: Affect normal, judgement normal, mood normal. [] Current Patient Data Vital Signs Vital Signs Date Time Temp Pulse Resp B/P (MAP) Pulse Ox O2 Delivery O2 Flow Rate FiO2 01/28/17 22:08 98.1 77 16 100 Room Air 98.1 EKG EKG [] Radiology/Procedures Radiology/Procedures [] Course & Med Decision Making Course & Med Decision Making Pertinent Labs and Imaging studies reviewed. (See chart for details) Patient has bilateral Otitis media, URI, pharyngitis, laryngitis-discharged with amoxicillin. f/u with PCP next week Dragon Disclaimer Dragon Disclaimer This electronic medical record was generated, in whole or in part, using a voice recognition dictation system. Departure Departure Impression: Primary Impression: Laryngitis, acute Additional Impressions: Pharyngitis, acute Otitis media Upper respiratory infection Disposition: HOME, SELF-CARE Condition: STABLE Referrals: NANDO CORDERO MD (PCP) follow up in one week Patient Instructions: Laryngitis, [id number], Otitis Media, Adult, Upper Respiratory Infection, Adult, [id number], Viral and Bacterial Pharyngitis Additional Instructions: You were seen for ear infection, laryngitis, pharyngitis and upper respiratory infection. Push fluids. Take Tylenol/Motrin for pain or fever. Salt water gurgles for sore throat. Follow up with your doctor next week. Scripts Prednisone (PREDNISONE) 50 Mg Tablet 1 TAB PO DAILY, #5 TAB Prov: RJ LEAHY APRN 01/28/17 Amoxicillin (AMOXICILLIN) 875 Mg Tablet 1 TAB PO BID, #20 TAB Prov: RJ LEAHY APRN 01/28/17 Problem Qualifiers Additional Impressions: Pharyngitis, acute Pharyngitis/tonsillitis etiology: unspecified etiology Qualified Codes: J02.9 - Acute pharyngitis, unspecified Otitis media Otitis media type: other nonsuppurative Chronicity: acute Laterality: bilateral Recurrence: not specified as recurrent Qualified Codes: H65.193 - Other acute nonsuppurative otitis media, bilateral Upper respiratory infection URI type: unspecified URI Qualified Codes: J06.9 - Acute upper respiratory infection, unspecified RJ LEAHY OPTOMETRIC TECHNOLOGIST Jan 28, 2017 22:25
== END 2017-01-28 22:29 | disposition home or self-care (01) ==
LOC: ER 22:04
DX: J04.0 Acute laryngitis (principal); J02.9 Acute pharyngitis, unspecified; H65.193 Other acute nonsuppurative otitis media, bilateral; J06.9 Acute upper respiratory infection, unspecified; F41.9 Anxiety disorder, unspecified; K21.9 Gastro-esophageal reflux disease without esophagitis; Z88.2 Allergy status to sulfonamides
CPT/HCPCS: 99283

== ENCOUNTER 2017-05-08 04:30 | Emergency (ER) | payer MEDICARE, OTHER ==
[2017-05-08 05:37] LABS: ADD MAN DIFF? NO
[2017-05-08 05:45] LABS: BASO # 0.1 x10^3/uL (0.0-0.2); BASO % 1 % (0-3); EOS # 0.2 x10^3/uL (0.0-0.7); EOS % 2 % (0-3); HEMATOCRIT 39.7 % (36.0-47.0); HEMOGLOBIN 13.3 g/dL (12.0-15.5); LYMPH # 2.6 x10^3/uL (1.0-4.8); LYMPH % 28 % (24-48); MEAN CORPUSCULAR HEMOGLOBIN 31 pg (25-35); MEAN CORPUSCULAR HGB CONC 34 g/dL (31-37); MEAN CORPUSCULAR VOLUME 92 fL (79-100); MONO # 0.8 x10^3/uL (0.0-1.1); MONO % 9 % (0-9); NEUT # 5.6 x10^3uL (1.8-7.7); NEUT % 60 % (31-73); PLATELET COUNT 244 x10^3/uL (140-400); RED CELL DISTRIBUTION WIDTH 12.5 % (11.5-14.5); WHITE BLOOD COUNT 9.3 x10^3/uL (4.0-11.0)
[2017-05-08 05:46] LABS: ANION GAP 9 (6-14); BLOOD UREA NITROGEN 11 mg/dL (7-20); CALCIUM 9.1 mg/dL (8.5-10.1); CARBON DIOXIDE 28 mmol/L (21-32); CHLORIDE 102 mmol/L (98-107); CREATININE 0.6 mg/dL (0.6-1.0); GFR 119.9; GLUCOSE 70 mg/dL (70-99); POTASSIUM 3.9 mmol/L (3.5-5.1); SODIUM 139 mmol/L (136-145)
[2017-05-08] MEDS ORDERED: CONTRAST GIVEN MC ×2 (06:45)
[2017-05-08] MEDS: IOHEXOL 300 MG/ML 100ML VIAL. IV ×2 (06:57)
[2017-05-08] MEDS ORDERED: IOHEXOL 300 MG/ML 100ML VIAL. ×2 (16:55)
== END 2017-05-08 09:11 | disposition home or self-care (01) ==
LOC: ER 04:30
DX: M27.2 Inflammatory conditions of jaws (principal); F41.9 Anxiety disorder, unspecified; K21.9 Gastro-esophageal reflux disease without esophagitis; Z88.2 Allergy status to sulfonamides
CPT/HCPCS: 36415; 70487; 80048; 85025; 99285-25; Q9967

== ENCOUNTER 2017-08-11 19:31 | Emergency (ER) | payer MEDICARE, OTHER ==
[2017-08-11] MEDS: IPRATRPIUM/ALBUTEROL 0.5/2.5MG 3 ML NEBU. NEB (20:17)
[2017-08-11] MEDS: ALBUTEROL SULFATE 2.5 MG/3 ML NEBU. NEB (21:45)
[2017-08-11] MEDS: cefTRIAXone IM 1 GM VIAL IM (22:23)
[2017-08-11] MEDS: IBUPROFEN 600 MG TABLET. PO (22:24)
[2017-08-11] MEDS: DEXAMETHASONE SOD PHOS 4 MG/ML VIAL IV (22:24)
[2017-08-12 09:33] LABS: NEGATIVE OBC STREP NEG; POSITIVE OBC STREP POS
== END 2017-08-11 22:43 | disposition home or self-care (01) ==
LOC: ER 19:31
DX: J18.9 Pneumonia, unspecified organism (principal); K21.9 Gastro-esophageal reflux disease without esophagitis; Z88.2 Allergy status to sulfonamides
CPT/HCPCS: 71046; 87070; 87880; 94640; 96372; 96374; 99285-25; J0696; J1100; J7613; J7620

== ENCOUNTER 2017-11-04 18:52 | Emergency (ER) | payer MEDICARE, OTHER ==
[~2017-11-04] VITALS: Ht 154.9 cm; Wt 47.6 kg
[~2017-11-04 18:52] MED LIST changes: +AMOX875T PO; +PROAIR HFA8.5 GM INH
[2017-11-04 19:15] VITALS: BP 135/91
[2017-11-04] MEDS ORDERED: HYDROcodone/APAP 5/325MG 1 TAB TABLET PO ONE (19:30)
[2017-11-04] MEDS ORDERED: MUPI15CR TP (19:30)
[2017-11-04] MEDS ORDERED: CLIN150C14 PO (19:30)
[2017-11-04] MEDS ORDERED: HYDR-971 PO (19:30)
--- NOTE | 2017-11-04 19:31 | PHYS DOC ---
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 Patient states she was seen at [facility] 2 weeks ago and was given antibiotics. She states she ran out of the antibiotics. She does not remember the name of the antibiotics. Patient denies any fever. Review of Systems Review of Systems Constitutional: Denies fever or chills [] Musculoskeletal: Denies back pain or joint pain [] Integument: Reports infected ingrown left great toe Neurologic: Denies headache, focal weakness or sensory changes [] All other systems were reviewed and found to be within normal limits, except as documented in this note. Current Medications Current Medications Current Medications Medications (Trade) Dose Ordered Sig/Deborah Start Time Stop Time Status Last Admin Dose Admin Acetaminophen/ Hydrocodone Bitart (Lortab 5/325) 1 tab 1X ONCE 11/04/17 19:30 11/04/17 19:31 UNV Allergies Allergies Allergies Coded Allergies Type Severity Reaction Last Updated Verified Sulfa (Sulfonamide Antibiotics) Allergy Intermediate hives 08/07/13 Yes Physical Exam Physical Exam Constitutional: Well developed, well nourished, no acute distress, non-toxic appearance. [] Skin: Warm, dry, left great toe with an area of erythema/cellulitis approximately 3 cm around the toenail. There is no drainage to the area. The area is mildly swollen, no fluctuance. Neurovascular exam is intact. Back: No tenderness, no CVA tenderness. [] Extremities: No tenderness, no cyanosis, no clubbing, ROM intact, no edema. [] Neurologic: Alert and oriented X 3, normal motor function, normal sensory function, no focal deficits noted. [] Psychologic: Affect normal, judgement normal, mood normal. [] EKG EKG [] Radiology/Procedures Radiology/Procedures [] Course & Med Decision Making Course & Med Decision Making Pertinent Labs and Imaging studies reviewed. (See chart for details) Patient has infected ingrown toenail. She was apparently on antibiotics but she does not remember the name. Tetanus is up-to-date. She was given prescription for clindamycin and Bactroban ointment. Recommended soaking the toe/foot in warm water with Epsom salts twice a day. Provided podiatric for follow-up in 1- 2 weeks. Provided return precautions and discharged as condition. Malon Disclaimer Dragon Disclaimer This electronic medical record was generated, in whole or in part, using a voice recognition dictation system. Departure Departure Impression: Primary Impression: Ingrown toenail of left foot with infection Disposition: 01 HOME, SELF-CARE Condition: STABLE Referrals: NANDO CORDERO MD (PCP) Follow-up in 1-2 weeks ROMIE GROSS DPM follow up in 1-2 weeks Patient Instructions: Infected Ingrown Toenail Additional Instructions: You were seen for an infected ingrown toenail. Please take the prescribed antibiotics as ordered until completed. Please soak your left great toe in warm water with Epsom salts twice a day. Please follow-up with the provided podiatric wrist in 2-4 weeks. Scripts Hydrocodone/Apap 5-325 (NORCO 5-325 TABLET) 1 Each Tablet 1 TAB PO Q6HRS, #12 TAB Prov: RJ LEAHY APRN 11/04/17 Clindamycin Hcl (CLINDAMYCIN HCL) 150 Mg Capsule 3 CAP PO TID, #90 CAP Prov: RJ LEAHY APRN 11/04/17 Mupirocin Calcium (BACTROBAN CREAM) 15 Gm Cream..g. 1 JACEK TP TID, #30 GM Prov: RJ LEAHY APRN 11/04/17 RJ LEAHY APRN Nov 04, 2017 19:31
== END 2017-11-04 19:40 | disposition home or self-care (01) ==
LOC: ER 18:52
DX: L60.0 Ingrowing nail (principal); B99.8 Other infectious disease; F41.9 Anxiety disorder, unspecified; K21.9 Gastro-esophageal reflux disease without esophagitis; Z88.2 Allergy status to sulfonamides
CPT/HCPCS: 99283; 99284

== ENCOUNTER → 2017-11-16 | Outpatient (CLI) | payer MEDICARE, OTHER ==
[2017-11-04 19:15] VITALS: BP 135/91
[~2017-11-16] MED LIST changes: +CLIN150C14 PO; +HYDR-971 PO; +MUPI15CR TP
== END | disposition home or self-care (01) ==
LOC: SPEC 12:14
PROVIDERS: ATTEND Podiatrist
DX: L03.032 Cellulitis of left toe (principal); G43.909 Migraine, unspecified, not intractable, without status migrainosus; K21.9 Gastro-esophageal reflux disease without esophagitis; Z87.891 Personal history of nicotine dependence; Z88.2 Allergy status to sulfonamides; Z82.49 Family history of ischemic heart disease and other diseases of the circulatory system
CPT/HCPCS: 87071; 87075

== ENCOUNTER 2018-02-20 07:34 | Emergency (ER) | payer MEDICARE, OTHER ==
[~2018-02-20] VITALS: Ht 154.9 cm; Wt 44.5 kg
[~2018-02-20 07:34] MED LIST changes: +HYDR-3164 PO; -HYDR-971 PO
[2018-02-20] MEDS: methylPREDNISolone SOD SUCC PF 125 MG/2 ML VIAL. IV ONE (08:24)
[2018-02-20] MEDS: ALBUTEROL SULFATE 2.5 MG/3 ML NEBU. NEB ONE (08:42)
--- NOTE | 2018-02-20 09:15 | PHYS DOC ---
Past Medical History Past Medical History: Anxiety, Asthma, GERD Additional Past Medical Histor: ovarian cyst, cyst on spleen Past Surgical History: No Surgical History Additional Past Surgical Histo: left bone reconstruction; tubes in ears Additional Information: 1 cigarette daily Alcohol Use: None Drug Use: None Adult General Chief Complaint Chief Complaint: ASTHMA HPI HPI Patient is a 27 year old [f__sex] who presents with [] Review of Systems Review of Systems Constitutional: Denies fever or chills [] Eyes: Denies change in visual acuity, redness, or eye pain [] HENT: Denies nasal congestion or sore throat [] Respiratory: Denies cough or shortness of breath [] Cardiovascular: No additional information not addressed in HPI [] GI: Denies abdominal pain, nausea, vomiting, bloody stools or diarrhea [] : Denies dysuria or hematuria [] Musculoskeletal: Denies back pain or joint pain [] Integument: Denies rash or skin lesions [] Neurologic: Denies headache, focal weakness or sensory changes [] Endocrine: Denies polyuria or polydipsia [] All other systems were reviewed and found to be within normal limits, except as documented in this note. Current Medications Current Medications Current Medications Medications (Trade) Dose Ordered Sig/Deborah Start Time Stop Time Status Last Admin Dose Admin Albuterol Sulfate (Ventolin Neb Soln) 2.5 mg 1X ONCE 02/20/18 08:15 02/20/18 08:16 DC 02/20/18 08:42 2.5 MG Methylprednisolone Sodium Succinate (SOLU-Medrol 125MG VIAL) 125 mg 1X ONCE 02/20/18 08:15 02/20/18 08:16 DC 02/20/18 08:24 125 MG Allergies Allergies Allergies Coded Allergies Type Severity Reaction Last Updated Verified Sulfa (Sulfonamide Antibiotics) Allergy Intermediate hives 08/07/13 Yes Physical Exam Physical Exam Constitutional: Well developed, well nourished, no acute distress, non-toxic appearance. [] HENT: Normocephalic, atraumatic, bilateral external ears normal, oropharynx moist, no oral exudates, nose normal. [] Eyes: PERRLA, EOMI, conjunctiva normal, no discharge. [] Neck: Normal range of motion, no tenderness, supple, no stridor. [] Cardiovascular:Heart rate regular rhythm, no murmur [] Lungs & Thorax: Bilateral breath sounds clear to auscultation [] Abdomen: Bowel sounds normal, soft, no tenderness, no masses, no pulsatile masses. [] Skin: Warm, dry, no erythema, no rash. [] Back: No tenderness, no CVA tenderness. [] Extremities: No tenderness, no cyanosis, no clubbing, ROM intact, no edema. [] Neurologic: Alert and oriented X 3, normal motor function, normal sensory function, no focal deficits noted. [] Psychologic: Affect normal, judgement normal, mood normal. [] Current Patient Data Vital Signs Vital Signs Date Time Temp Pulse Resp B/P (MAP) Pulse Ox O2 Delivery O2 Flow Rate FiO2 02/20/18 08:44 100 Room Air 02/20/18 07:48 98.2 93 16 131/83 (99) 98.2 EKG EKG [] Radiology/Procedures Radiology/Procedures [] Course & Med Decision Making Course & Med Decision Making Pertinent Labs and Imaging studies reviewed. (See chart for details) [] Dragon Disclaimer Dragon Disclaimer This electronic medical record was generated, in whole or in part, using a voice recognition dictation system. Departure Departure Impression: Primary Impression: Asthma Disposition: 01 HOME, SELF-CARE Condition: STABLE Referrals: NANDO CORDERO MD (PCP) Patient Instructions: Asthma, Adult Additional Instructions: Follow-up with your primary care provider as needed. If worsening please return to the emergency department. Continue taking any at home medications for your asthma. ANGELA SU APRN Feb 20, 2018 09:15
[2018-02-20 09:20] VITALS: BP 117/65
== END 2018-02-20 09:33 | disposition home or self-care (01) ==
LOC: ER 07:34
DX: J45.909 Unspecified asthma, uncomplicated (principal); F41.9 Anxiety disorder, unspecified; K21.9 Gastro-esophageal reflux disease without esophagitis; F17.210 Nicotine dependence, cigarettes, uncomplicated; Z88.2 Allergy status to sulfonamides
CPT/HCPCS: 94640; 96374; 99283; J2930; J7613

== ENCOUNTER 2018-05-16 17:14 | Emergency (ER) | payer MEDICARE, OTHER ==
[~2018-05-16] VITALS: Ht 154.9 cm; Wt 52.2 kg
[~2018-05-16 17:14] MED LIST changes: +ALBU2.5V8 INH; +AZIT1PAC PO; +BENZ100C PO; +METH4TAB2 PO; -PROAIR HFA8.5 GM INH; +VENTOLIN HFA18 GM INH
[2018-05-16 17:25] VITALS: BP 128/59
[2018-05-16] MEDS ORDERED: AMOX875T PO (17:32)
--- NOTE | 2018-05-16 17:34 | PHYS DOC ---
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 Rates the sore throat and ear pain at 4 out of 10. She denies any fever but she states she's had chills. Denies any cough or congestion. Review of Systems Review of Systems Constitutional: Denies fever or chills [] Eyes: Denies change in visual acuity, redness, or eye pain [] HENT: Reports sore throat and bilateral ear pain. Denies nasal congestion Respiratory: Denies cough or shortness of breath [] Cardiovascular: No additional information not addressed in HPI [] GI: Denies abdominal pain, nausea, vomiting, bloody stools or diarrhea [] : Denies dysuria or hematuria [] Musculoskeletal: Denies back pain or joint pain [] Integument: Denies rash or skin lesions [] Neurologic: Denies headache, focal weakness or sensory changes [] All other systems were reviewed and found to be within normal limits, except as documented in this note. Allergies Allergies Allergies Coded Allergies Type Severity Reaction Last Updated Verified Sulfa (Sulfonamide Antibiotics) Allergy Intermediate hives 08/07/13 Yes Physical Exam Physical Exam Constitutional: Well developed, well nourished, no acute distress, non-toxic appearance. [] HENT: Normocephalic, atraumatic, bilateral external ears normal, oropharynx moist, no oral exudates, nose normal. [] Bilateral TM are mildly injected right worse than left. Posterior pharynx with mild erythema no exudate Eyes: PERRLA, EOMI, conjunctiva normal, no discharge. [] Neck: Normal range of motion, no tenderness, supple, no stridor. [] Cardiovascular:Heart rate regular rhythm, no murmur [] Lungs & Thorax: Bilateral breath sounds clear to auscultation [] Abdomen: Bowel sounds normal, soft, no tenderness, no masses, no pulsatile masses. [] Skin: Warm, dry, no erythema, no rash. [] Back: No tenderness, no CVA tenderness. [] Extremities: No tenderness, no cyanosis, no clubbing, ROM intact, no edema. [] Neurologic: Alert and oriented X 3, normal motor function, normal sensory function, no focal deficits noted. [] Psychologic: Affect normal, judgement normal, mood normal. [] EKG EKG [] Radiology/Procedures Radiology/Procedures [] Course & Med Decision Making Course & Med Decision Making Pertinent Labs and Imaging studies reviewed. (See chart for details) This is a 28-year-old. Patient presenting to the ED today with otitis media and pharyngitis. Discharged with amoxicillin. Saltwater gargles recommended. Tylenol for pain or fever. Follow-up with primary care doctor in 1-2 weeks. Dragon Disclaimer Dragon Disclaimer This electronic medical record was generated, in whole or in part, using a voice recognition dictation system. Departure Departure Impression: Primary Impression: Pharyngitis, acute Additional Impression: Otitis media Disposition: HOME, SELF-CARE Condition: STABLE Referrals: NANDO CORDERO MD (PCP) Follow-up in 1-2 weeks Patient Instructions: Otitis Media, Adult, Viral and Bacterial Pharyngitis, [id number] Additional Instructions: You have ear infection and throat infection. We put you on antibiotics, ensure you complete them. Please take Tylenol or Motrin for pain or fever. Use saltwater gargles as needed. Follow-up with your doctor in 1-2 weeks. Scripts Amoxicillin (AMOXICILLIN) 875 Mg Tablet 1 TAB PO BID, #20 TAB Prov: RJ LEAHY APRN 05/16/18 Problem Qualifiers Primary Impression: Pharyngitis, acute Pharyngitis/tonsillitis etiology: unspecified etiology Qualified Codes: J02.9 - Acute pharyngitis, unspecified Additional Impression: Otitis media Otitis media type: other nonsuppurative Chronicity: acute Laterality: bilateral Recurrence: not specified as recurrent Qualified Codes: H65.193 - Other acute nonsuppurative otitis media, bilateral RJ LEAHY PROCESS CONTROL TECHNICIAN May 16, 2018 17:34
== END 2018-05-16 17:51 | disposition home or self-care (01) ==
LOC: ER 17:14
DX: J02.9 Acute pharyngitis, unspecified (principal); H65.193 Other acute nonsuppurative otitis media, bilateral; J45.909 Unspecified asthma, uncomplicated; K21.9 Gastro-esophageal reflux disease without esophagitis; Z88.2 Allergy status to sulfonamides
CPT/HCPCS: 99283

== ENCOUNTER 2019-01-27 15:20 | Emergency (ER) | payer MEDICARE, OTHER ==
[~2019-01-27] VITALS: Ht 165.1 cm; Wt 49.9 kg
[2019-01-27 15:38] VITALS: BP 135/80
[2019-01-27] MEDS ORDERED: DEXAMETHASONE 4 MG TABLET PO STA (15:50)
[2019-01-27] MEDS ORDERED: AMOX875T PO (15:58)
[2019-01-27] MEDS ORDERED: BENZ100C PO (15:58)
--- NOTE | 2019-01-27 15:59 | PHYS DOC ---
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 She states that he symptoms been ongoing for week. She states she's been having congestion, cough, runny nose, ear drainage. She states that when she coughs her chest is hurting and rates the pain as 7 out of 10 in severity and sharp. She states that she's been taking NyQuil and pseudoephedrine prior to arrival. Review of Systems Review of Systems Constitutional: Denies fever or chills [] Eyes: Denies change in visual acuity, redness, or eye pain [] HENT: Reports nasal congestion or sore throat. Reports ear drainage. Respiratory: Reports cough. Cardiovascular: No additional information not addressed in HPI [] GI: Denies abdominal pain, nausea, vomiting, bloody stools or diarrhea [] : Denies dysuria or hematuria [] Musculoskeletal: Denies back pain or joint pain [] Integument: Denies rash or skin lesions [] Neurologic: Denies headache, focal weakness or sensory changes [] Endocrine: Denies polyuria or polydipsia [] Complete systems were reviewed and found to be within normal limits, except as documented in this note. Allergies Allergies Allergies Coded Allergies Type Severity Reaction Last Updated Verified Sulfa (Sulfonamide Antibiotics) Allergy Intermediate hives 08/07/13 Yes Physical Exam Physical Exam Constitutional: Well developed, well nourished, no acute distress, non-toxic appearance. [] HENT: Normocephalic, atraumatic, bilateral external ears normal, left ear canal is erythematous with bulging tympanic membranes that is red, oropharynx moist, tonsils are erythematous and 1/4, no oral exudates, nose turbinate are erythematous. [] Eyes: PERRLA, EOMI, conjunctiva normal, no discharge. [] Neck: Normal range of motion, no tenderness, supple, no stridor. [] Cardiovascular:Heart rate regular rhythm, no murmur [] Lungs & Thorax: Bilateral breath sounds clear to auscultation [] Abdomen: Bowel sounds normal, soft, no tenderness, no masses, no pulsatile masses. [] Skin: Warm, dry, no erythema, no rash. [] Back: No tenderness, no CVA tenderness. [] Extremities: No tenderness, no cyanosis, no clubbing, ROM intact, no edema. [] Neurologic: Alert and oriented X 3, normal motor function, normal sensory function, no focal deficits noted. [] Psychologic: Affect normal, judgement normal, mood normal. [] Current Patient Data Vital Signs Vital Signs Date Time Temp Pulse Resp B/P (MAP) Pulse Ox O2 Delivery O2 Flow Rate FiO2 01/27/19 15:38 98.0 98 20 135/80 (98) 99 Room Air 98.0 EKG EKG [] Radiology/Procedures Radiology/Procedures [] Course & Med Decision Making Course & Med Decision Making Pertinent Labs and Imaging studies reviewed. (See chart for details) Appears to have Otitis Media of L ear. Will place on Amoxicillin for this. Will also have start taking Zyrtec, Flonase, Mucinex. Will place on Tessalon Perles for cough. Will give decadron in ER. Dragon Disclaimer Dragon Disclaimer This electronic medical record was generated, in whole or in part, using a voice recognition dictation system. Departure Departure Impression: Primary Impression: Upper respiratory infection Additional Impression: Otitis media Disposition: 01 HOME, SELF-CARE Condition: STABLE Referrals: NANDO CORDERO MD (PCP) Patient Instructions: Otitis Media, Adult, Upper Respiratory Infection, Adult Additional Instructions: Thank you for visiting [facility]. We appreciate you trusting us with your care. If any additional problems come up don't hesitate to return to visit us. Please follow up with your primary care provider so they can plan additional care if needed and know about the problem that you had. If symptoms worsen come back to the Emergency Department. Any concerning symptoms that start such as chest pain, shortness of air, weakness or numbness on one side of the body, running high fevers or any other concerning symptoms return to the ER. You have been prescribed an antibiotic today to help fight your infection. Please take all of the antibiotic as directed. If after 48 hours the infection is not improving, please return for more care. If the infection worsens, return to ER for additional care. Please fill your medications at any pharmacy and follow the prescription instructions. Please take the following medications per labels to help with symptom management as well: Zyrtec Flonase Mucinex Please drink plenty of fluids and return to ER if unable to keep fluids down or eat. Scripts Benzonatate (TESSALON PERLE) 100 Mg Capsule 100 MG PO TID PRN for COUGH, #21 CAP Prov: FRANCOISE TURNER APRN 01/27/19 Amoxicillin (AMOXICILLIN) 875 Mg Tablet 1 TAB PO BID for 7 Days, #14 TAB Prov: FRANCOISE TURNER APRN 01/27/19 Problem Qualifiers Primary Impression: Upper respiratory infection URI type: unspecified URI Qualified Codes: J06.9 - Acute upper respiratory infection, unspecified Additional Impression: Otitis media Otitis media type: allergic Chronicity: acute Laterality: left Recurrence: not specified as recurrent Qualified Codes: H65.112 - Acute and subacute allergic otitis media (mucoid) (sanguinous) (serous), left ear FRANCOISE TURNER APRN Jan 27, 2019 15:59
== END 2019-01-27 16:22 | disposition home or self-care (01) ==
LOC: ER 15:20
DX: J06.9 Acute upper respiratory infection, unspecified (principal); H65.112 Acute and subacute allergic otitis media (mucoid) (sanguinous) (serous), left ear; J45.909 Unspecified asthma, uncomplicated; K21.9 Gastro-esophageal reflux disease without esophagitis; Z96.22 Myringotomy tube(s) status
CPT/HCPCS: 99283; J8540

== ENCOUNTER 2019-03-19 13:17 | Emergency (ER) | payer OTHER ==
[~2019-03-19] VITALS: Ht 157.5 cm; Wt 49.9 kg
[2019-03-19 14:08] VITALS: BP 105/65
[2019-03-19] MEDS ORDERED: CIPR2.5D EACH EAR (14:42)
[2019-03-19] MEDS ORDERED: ONDA4TAB12 PO (14:42)
--- NOTE | 2019-03-19 14:42 | PHYS DOC ---
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 The patient states that she's been taking [id number] medicines to help symptoms. Patient is able to keep fluids down at home. Review of Systems Review of Systems Constitutional: Reports fever or chills and body aches. Eyes: Denies change in visual acuity, redness, or eye pain [] HENT: Reports nasal congestion, sore throat, and runny nose. Also reports bilateral ear pain. Respiratory: Reports cough. Denies shortness of breath. Cardiovascular: No additional information not addressed in HPI [] GI: Reports nausea. Denies abdominal pain, bloody stools or diarrhea [] : Denies dysuria or hematuria [] Musculoskeletal: Denies back pain or joint pain [] Integument: Denies rash or skin lesions [] Neurologic: Reports headache, denies focal weakness or sensory changes [] Endocrine: Denies polyuria or polydipsia [] Complete systems were reviewed and found to be within normal limits, except as documented in this note. Allergies Allergies Allergies Coded Allergies Type Severity Reaction Last Updated Verified Sulfa (Sulfonamide Antibiotics) Allergy Intermediate hives 08/07/13 Yes Physical Exam Physical Exam Constitutional: Well developed, well nourished, no acute distress, non-toxic appearance. [] HENT: Normocephalic, atraumatic, bilateral external ears normal, bilateral tympanic membranes are pearly godfrey, bilateral erythematous ear canals, oropharynx moist, no oral exudates, nose turbinates are inflamed. Eyes: PERRLA, EOMI, conjunctiva normal, no discharge. [] Neck: Normal range of motion, no tenderness, supple, no stridor. [] Cardiovascular:Heart rate regular rhythm, no murmur [] Lungs & Thorax: Bilateral breath sounds clear to auscultation [] Abdomen: Bowel sounds normal, soft, no tenderness, no masses, no pulsatile masses. [] Skin: Warm, dry, no erythema, no rash. [] Neurologic: Alert and oriented X 3, normal motor function, normal sensory function, no focal deficits noted. [] Psychologic: Affect normal, judgement normal, mood normal. [] Current Patient Data Vital Signs Vital Signs Date Time Temp Pulse Resp B/P (MAP) Pulse Ox O2 Delivery O2 Flow Rate FiO2 03/19/19 14:08 98.5 76 22 105/65 (78) 98 Room Air 98.5 EKG EKG [] Radiology/Procedures Radiology/Procedures [] Course & Med Decision Making Course & Med Decision Making Pertinent Labs and Imaging studies reviewed. (See chart for details) Patient has Otitis Externa, will place on Cipro drops. The patient appears to have the Flu clinically. Discussed with patient the importance of drinking plenty of fluids. I also discussed the importance of rest. It was discussed with the patient that she is contagious and to stay away from others until it has been a week since the start of her symptoms. Discussed with the patient that she can take Zyrtec per label instructions for runny nose. Also discussed the proper control of fever by rotating Tylenol and Ibuprofen at home. Will also prescribe Zofran for nausea. Dragon Disclaimer Dragon Disclaimer This electronic medical record was generated, in whole or in part, using a voice recognition dictation system. Departure Departure Impression: Primary Impression: Otitis externa Additional Impression: Viral syndrome Disposition: 01 HOME, SELF-CARE Condition: STABLE Referrals: NANDO CORDERO MD (PCP) Patient Instructions: Otitis Externa, Viral Syndrome Additional Instructions: Thank you for visiting [facility]. We appreciate you trusting us with your care. If any additional problems come up don't hesitate to return to visit us. Please follow up with your primary care provider so they can plan additional care if needed and know about the problem that you had. If symptoms worsen come back to the Emergency Department. Any concerning symptoms that start such as chest pain, shortness of air, weakness or numbness on one side of the body, running high fevers or any other concerning symptoms return to the ER. Please fill your medications at any pharmacy and follow the prescription instructions. Please drink plenty of fluids. If unable to keep fluids down please return to ER. Please get Tylenol and Ibuprofen over the counter. Give each medication every 6 hours as directed by the medication labels. In order to utilize the peak of the medications stagger the medications to where the child is getting one of the medications every 3 hours. For example if you give Ibuprofen at 3 PM, you then give Tylenol at 6 PM and Ibuprofen again at 9 PM, and then Tylenol at midnight. Please get Zyrtec over the counter and take per label instructions for runny nose. You have been prescribed an antibiotic today to help fight your infection. Please take all of the antibiotic as directed. If after 48 hours the infection is not improving, please return for more care. If the infection worsens, return to ER for additional care. Scripts Ciprofloxacin Hcl (CIPROFLOXACIN HCL) 2.5 Ml Drops 3 DROP EACH EAR TID for 7 Days, #1 BOTTLE 0 Refills Prov: FRANCOISE TURNER APRN 03/19/19 Ondansetron (ONDANSETRON ODT) 4 Mg Tab.rapdis 1 TAB PO PRN Q6-8HRS PRN for NAUSEA, #16 TAB Prov: FRANCOISE TURNER APRN 03/19/19 Problem Qualifiers Primary Impression: Otitis externa Otitis externa type: unspecified type Chronicity: acute Laterality: bilateral Qualified Codes: H60.503 - Unspecified acute noninfective otitis externa, bilateral FRANCOISE TURNER APRN Mar 19, 2019 14:42
== END 2019-03-19 14:55 | disposition home or self-care (01) ==
LOC: ER 13:17
DX: B34.9 Viral infection, unspecified (principal); H60.503 Unspecified acute noninfective otitis externa, bilateral; K21.9 Gastro-esophageal reflux disease without esophagitis; J45.909 Unspecified asthma, uncomplicated; Z88.2 Allergy status to sulfonamides
CPT/HCPCS: 99283

== ENCOUNTER 2019-03-23 12:33 | Emergency (ER) | payer OTHER ==
[~2019-03-23] VITALS: Ht 154.9 cm; Wt 54.4 kg
[~2019-03-23 12:33] MED LIST changes: +CIPR2.5D EACH EAR; +ONDA4TAB12 PO
[2019-03-23 13:01] VITALS: BP 100/69
[2019-03-23 13:45] LABS: INFLUENZA A PATIENT NEGATIVE (NEGATIVE); INFLUENZA B PATIENT NEGATIVE (NEGATIVE)
[2019-03-23] MEDS ORDERED: BENZ100C PO (13:56)
--- NOTE | 2019-03-23 13:57 | PHYS DOC ---
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 Mother states that the patient continues to have a fatigue, body aches, dry cough and a fever. Mother also reports that the patient has been taking antibiotics that were prescribed for ear infection. Mother denies any abdominal pain, nausea, vomiting, diarrhea, sore throat, or shortness of breath. Pt states her ears are feeling better. Review of Systems Review of Systems Constitutional: See history of present illness Eyes: Denies redness, or eye pain [] HENT: Denies ear pain or sore throat ; see history of present illness[] Respiratory: Denies shortness of breath; see history of present illness [] Cardiovascular: No additional information not addressed in HPI [] GI: Denies abdominal pain, nausea, vomiting, or diarrhea [] Musculoskeletal: Reports body aches Integument: Denies rash or skin lesions [] Neurologic: Denies focal weakness or sensory changes [] Complete systems were reviewed and found to be within normal limits, except as documented in this note. systems were reviewed and found to be within normal limits, except as documented in this note. Allergies Allergies Allergies Coded Allergies Type Severity Reaction Last Updated Verified Sulfa (Sulfonamide Antibiotics) Allergy Intermediate hives 08/07/13 Yes Physical Exam Physical Exam Constitutional: Well developed, well nourished, no acute distress, ill appearance HENT: Normocephalic, atraumatic, bilateral external ears normal, bilateral TMs normal, posterior pharynx normal oropharynx moist, nose congested with erythema and edema of the nasal turbinates bilaterally Eyes: PERRLA, conjunctiva injected bilaterally, no discharge. [] Neck: Normal range of motion, no stridor. [] Cardiovascular:Heart rate regular rhythm, no murmur [] Lungs & Thorax: Bilateral breath sounds clear to auscultation, Respirations even and unlabored, no retractions, no respiratory distress Skin: Warm, dry, no erythema, no rash. [] Back: No tenderness Extremities: No cyanosis, ROM intact Neurologic: Alert and oriented X 3, no focal deficits noted. [] Psychologic: Affect normal, judgement normal, mood normal. Current Patient Data Vital Signs Vital Signs Date Time Temp Pulse Resp B/P (MAP) Pulse Ox O2 Delivery O2 Flow Rate FiO2 03/23/19 13:01 99.3 84 16 100/69 (79) 96 Room Air 99.3 Lab Values Laboratory Tests Test 03/23/19 12:57 Influenza Type A Antigen Negative (NEGATIVE) Influenza Type B Antigen Negative (NEGATIVE) EKG EKG [] Radiology/Procedures Radiology/Procedures [] Course & Med Decision Making Course & Med Decision Making Pertinent Labs and Imaging studies reviewed. (See chart for details) [] Dragon Disclaimer Dragon Disclaimer This electronic medical record was generated, in whole or in part, using a voice recognition dictation system. Departure Departure Impression: Primary Impression: Flu-like symptoms Additional Impression: Upper respiratory infection Disposition: HOME, SELF-CARE Condition: STABLE Referrals: NANDO CORDERO MD (PCP) Patient Instructions: Influenza, Adult, [id number] Additional Instructions: Fill prescription(s) and use as directed, continue taking previous mediations as prescribed. Recommend use of a Cool mist humidifier in room at bedtime. Alternate Tylenol or ibuprofen as needed for pain/fever. Increase clear fluids. Avoid airway triggers such as smoke, fragrance, dust, and pollen. Follow-up with your primary care doctor if symptoms persist, return to the ER if symptoms worsen. Scripts Benzonatate (TESSALON PERLE) 100 Mg Capsule 1 CAP PO TID PRN for COUGH for 7 Days, #21 CAP 0 Refills Prov: WILBUR WATSON [employer] LEAD[employer] 03/23/19 Problem Qualifiers Additional Impression: Upper respiratory infection URI type: unspecified URI Qualified Codes: J06.9 - Acute upper respiratory infection, unspecified WILBUR WATSON [employer] LE[employer] Mar 23, 2019 13:57
== END 2019-03-23 14:12 | disposition home or self-care (01) ==
LOC: ER 12:33
DX: J06.9 Acute upper respiratory infection, unspecified (principal); M79.10 Myalgia, unspecified site; R53.83 Other fatigue; J45.909 Unspecified asthma, uncomplicated; K21.9 Gastro-esophageal reflux disease without esophagitis; Z88.2 Allergy status to sulfonamides
CPT/HCPCS: 87804; 99284

== ENCOUNTER 2019-10-03 18:37 | Emergency (ER) | payer MEDICARE, OTHER ==
[~2019-10-03] VITALS: Ht 154.9 cm; Wt 50.0 kg
--- NOTE | 2019-10-03 21:26 | PHYS DOC ---
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 Patient denies any drainage or bleeding from her ears. She reports a history of seasonal allergies and frequent ear infections. Patient denies any known exposure to anyone with COVID -19 infection. She denies any fever, chest pain, abdominal pain, nausea, vomiting, diarrhea, or rash. She denies any shortness of breath, difficulty breathing, wheezing, or body aches. She currently rates her pain a 7 out of 10 on a pain scale, she denies any alleviating, or exacerbating factors, she states the pain is in her ears and denies radiation of the pain. Review of Systems: Review of Systems: Constitutional: Denies fever or chills. [] Eyes: Denies change in visual acuity. [] HENT: Denies nasal congestion or sore throat. [] Respiratory: Denies cough or shortness of breath. [] Cardiovascular: Denies chest pain or edema. [] GI: Denies abdominal pain, nausea, vomiting, bloody stools or diarrhea. [] : Denies dysuria. [] Musculoskeletal: Denies back pain or joint pain. [] Integument: Denies rash. [] Neurologic: Denies headache, focal weakness or sensory changes. [] Endocrine: Denies polyuria or polydipsia. [] Lymphatic: Denies swollen glands. [] Psychiatric: Denies depression or anxiety. [] Heart Score: Risk Factors: Risk Factors: DM, Current or recent (<one month) smoker, HTN, HLP, family history of CAD, obesity. Risk Scores: Score 0 - 3: 2.5% MACE over next 6 weeks - Discharge Home Score 4 - 6: 20.3% MACE over next 6 weeks - Admit for Clinical Observation Score 7 - 10: 72.7% MACE over next 6 weeks - Early Invasive Strategies Allergies: Allergies: Allergies Coded Allergies Type Severity Reaction Last Updated Verified Sulfa (Sulfonamide Antibiotics) Allergy Intermediate hives 08/07/13 Yes Physical Exam: PE: Constitutional: Well developed, well nourished, no acute distress, ill appearance. [] HENT: Normocephalic, atraumatic, bilateral external ears normal, bilateral TMs normal, mild erythema of posterior pharynx, oropharynx moist, no oral exudates, nose congested Eyes: PERRLA, EOMI, conjunctiva normal, no discharge. [] Neck: Normal range of motion, no tenderness, supple, no stridor. [] Cardiovascular:Heart rate regular rhythm Lungs & Thorax: Bilateral breath sounds clear to auscultation, Respirations even and unlabored, no retractions, no respiratory distress [] Skin: Warm, dry, no erythema, no rash. [] Back: No tenderness Extremities: No cyanosis, ROM intact Neurologic: Alert and oriented X 3, no focal deficits noted. [] Psychologic: Affect normal, judgement normal, mood normal. [] Current Patient Data: Vital Signs: Vital Signs Date Time Temp Pulse Resp B/P (MAP) Pulse Ox O2 Delivery O2 Flow Rate FiO2 10/03/19 19:30 97.6 85 18 134/81 (98) 98 Room Air 97.6 EKG: EKG: [] Radiology/Procedures: Radiology/Procedures: [] Course & Med Decision Making: Course & Med Decision Making Pertinent Labs and Imaging studies reviewed. (See chart for details) 29-year-old female presents to the emergency department with multiple complaints. Symptoms are consistent with COVID-19 infection, or other viral URI. Patient was provided with upper respiratory instructions, COVID swab was obtained, the patient and her family were instructed to go home and follow quarantine precautions until the results of the test are known. Patient and her family verbalized an understanding of home care, medications, follow-up, and return to ED instructions and were in agreement with the plan of care. COVID-19 CRITERIA: The patient was evaluated during the global COVID-19 pandemic, and that diagnosis was suspected/considered upon their initial presentation. Their evaluation, treatment and testing was consistent with current guidelines for patients who present with complaints or symptoms that may be related to COVID-19. [] Dragon Disclaimer: Dragon Disclaimer: This electronic medical record was generated, in whole or in part, using a voice recognition dictation system. Departure Departure Impression: Primary Impression: URI with cough and congestion Additional Impression: Person under investigation for COVID-19 Disposition: 01 HOME, SELF-CARE Condition: STABLE Referrals: NANDO OCRDERO MD (PCP) Patient Instructions: Upper Respiratory Infection, Adult, [id number] Additional Instructions: You have been tested for or diagnosed with COVID-19. It is an infection caused by a new type of coronavirus. COVID-19 will cause cold-like or mild flu symptoms in most. It can cause more severe symptoms like problems breathing in some. There is no treatment for COVID-19. The body will clear the infection over time. Self-care will help to ease discomfort. Steps to Take: Self-Care Rest as needed. Healthy habits may help you feel better. Steps include: Choose healthy foods including fruits and vegetables. Drink water throughout the day. Get plenty of sleep each night. If you smoke, try to quit. It may ease breathing. Avoid alcohol. Keep Others Healthy The virus can spread to others. Droplets are released every time you sneeze or cough. The droplets can get into the mouth, nose, or eyes of people near you and lead to infection. To lower the chances of spreading COVID-19 to others: Stay at home until your doctor has said it is safe to leave. If you tested positive this will mean staying isolated until both of the following are true: At least 7 days have passed since the start of illness. You are free of fever for at least 72 hours without the use of medicine. During this time: - Avoid public areas, events, or transportation. Do not return to work or school until your doctor has said it is safe to do so. - Call ahead if you need to go to a medical center. Let them know you may have COVID-19. It will help them guide you where to go. They may also ask you to wear a facemask when you come to the office. - If you call for emergency medical services, let them know you may have COVID- 19. While at home: - Try to avoid close contact with others. Stay about 6 feet away. - If possible, spend most of your time in a separate room from others. - Use a face mask if you will be in close contact with others such as sharing a room or vehicle. - Have someone wipe down common surfaces in the home. Use household concrete bucket hooker every day on areas like doorknobs, counters, or sinks. - Cough or sneeze into a tissue. Throw the tissue away right after use. If a tissue is not available, cough or sneeze into your elbow. - Wash your hands often. Wash them after sneezing or coughing. Use soap and water and wash for at least 20 seconds. Alcohol based hand delta system freight car cleaner can be used if soap and water is not available. - Do not prepare food for others. Avoid sharing personal items like forks, spoons, or toothbrushes. - Avoid close contact with pets while you are sick. There is no evidence of the virus passing to pets. This is a safety step until more is known about this virus. Isolation can be frustrating. Social interaction can help. Keep in touch with friends and family through phone and tech options. You can still interact with others in your home, just keep a safe distance of about 6 feet. Follow-up: Your doctors office will check in with you to see if there are any changes in your health. You may be asked to keep track of symptoms to share with them. They will also let you know when you are clear to be in public again. Problems to Look Out For: Contact your doctor if your recovery is not going as you expect. Get emergency care if you have problems such as: - Trouble breathing - Nonstop chest pain or pressure - Changes in awareness, confusion, or problems waking - Lips or face have bluish color - Worsening of symptoms If you think you have an emergency, call for emergency medical services right away. As taken from [facility] Justicifation of Admission Dx: Justifications for Admission: Justification of Admission Dx: N/A COVID-19 Assessment: COVID-19 Patient Risks: Age 65 or older: No Sign of co-morbidity: No Exp to person + for COVID: No Exp to PUI: No Travel from affected area: No Lower respiratory symptoms: Yes Fever: No PPE Use: Full PPE with N95 mask or PAPR: Yes (N95, gown, gloves, goggles) WILBUR WATSON APRN Oct 03, 2019 21:26
[2019-10-03 21:53] VITALS: BP 110/71
--- NOTE | 2019-10-08 13:20 | NUR ---
IP: Pt called for her results of the COVID test. Informed pt it is negative. All questions answered.
== END 2019-10-03 21:55 | disposition home or self-care (01) ==
LOC: ER 18:37
DX: J06.9 Acute upper respiratory infection, unspecified (principal); Z20.828 Contact with and (suspected) exposure to other viral communicable diseases; R05 Cough; R09.81 Nasal congestion; H92.03 Otalgia, bilateral; F41.9 Anxiety disorder, unspecified; J45.909 Unspecified asthma, uncomplicated; K21.9 Gastro-esophageal reflux disease without esophagitis; Z98.890 Other specified postprocedural states; Z88.2 Allergy status to sulfonamides
CPT/HCPCS: 99283; U0003

== ENCOUNTER 2020-07-28 21:31 | Emergency (ER) | payer MEDICARE, OTHER ==
[~2020-07-28] VITALS: Ht 167.6 cm; Wt 50.0 kg
[~2020-07-28 21:31] MED LIST changes: -CIPR2.5D EACH EAR; +CIPR2.5D2 EACH EAR; -CLIN150C14 PO; +CLIN150C15 PO
[2020-07-28 22:35] VITALS: BP 125/78
[2020-07-28] MEDS ORDERED: NAPROXEN 500 MG TABLET PO STA (22:54)
[2020-07-28] MEDS ORDERED: TRAM50TA PO (22:59)
[2020-07-28] MEDS ORDERED: CLIN300C9 PO (22:59)
--- NOTE | 2020-07-28 22:59 | PHYS DOC ---
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 Patient denies any fever, denies any injury. Review of Systems: Review of Systems: Constitutional: Denies fever or chills. [] Musculoskeletal: Denies back pain or joint pain. [] Integument: Reports drainage from the right great toe Neurologic: Denies headache, focal weakness or sensory changes. [] Psychiatric: Denies depression or anxiety. [] Heart Score: C/O Chest Pain: N/A Risk Factors: Risk Factors: DM, Current or recent (<one month) smoker, HTN, HLP, family history of CAD, obesity. Risk Scores: Score 0 - 3: 2.5% MACE over next 6 weeks - Discharge Home Score 4 - 6: 20.3% MACE over next 6 weeks - Admit for Clinical Observation Score 7 - 10: 72.7% MACE over next 6 weeks - Early Invasive Strategies Allergies: Allergies: Allergies Coded Allergies Type Severity Reaction Last Updated Verified Sulfa (Sulfonamide Antibiotics) Allergy Intermediate hives 08/07/13 Yes Physical Exam: PE: Constitutional: Well developed, well nourished, no acute distress, non-toxic appearance. [] Skin: Right great toe with cellulitis around the nailbed. There is trace drainage on the base of the nailbed. Patient refused to allow me to drain the area. The area is warm tender to touch. +2 right pedal pulse. Back: No tenderness, no CVA tenderness. [] Extremities: No tenderness, no cyanosis, no clubbing, ROM intact, no edema. [] Neurologic: Alert and oriented X 3, normal motor function, normal sensory function, no focal deficits noted. [] Psychologic: Affect normal, judgement normal, mood normal. [] Current Patient Data: Vital Signs: Vital Signs Date Time Temp Pulse Resp B/P (MAP) Pulse Ox O2 Delivery O2 Flow Rate FiO2 07/28/20 22:35 97.8 76 20 125/78 (94) 99 Room Air 97.8 EKG: EKG: [] Radiology/Procedures: Radiology/Procedures: [] Course & Med Decision Making: Course & Med Decision Making Pertinent Labs and Imaging studies reviewed. (See chart for details) This is a 30-year-old female patient with infected ingrown toenail. She refused to allow me to drain the toe. Tetanus up-to-date. Discharged on clindamycin. Follow-up with PCP. Leola Disclaimer: Leola Disclaimer: This electronic medical record was generated, in whole or in part, using a voice recognition dictation system. Departure Departure Impression: Primary Impression: Ingrown toenail of left foot with infection Disposition: HOME / SELF CARE / HOMELESS Condition: STABLE Referrals: NANDO CORDERO MD (PCP) Follow-up in 1 to 2 weeks Patient Instructions: Infected Ingrown Toenail Additional Instructions: You have infected toe. Soak it in warm water with Epsom salt twice a day. Complete the prescribed antibiotics. Follow-up with your doctor in 1 week Scripts Tramadol Hcl (TRAMADOL HCL) 50 Mg Tablet 50 MG PO Q6HRS PRN for PAIN, #20 TAB Prov: RJ LEAHY APRN 07/28/20 Clindamycin Hcl (CLINDAMYCIN HCL) 300 Mg Capsule 1 CAP PO TID, #30 CAP Prov: RJ LEAHY APRN 07/28/20 RJ LEAHY APRN July 28, 2020 22:59
[2020-07-28] MEDS ORDERED: HYDROcodone/APAP 5/325MG 1 TAB TABLET PO ONE (23:00)
[2020-07-28] MEDS ORDERED: CLINDAMYCIN HCL 150 MG CAPSULE. PO ONE (23:00)
== END 2020-07-28 23:24 | disposition home or self-care (01) ==
LOC: ER 21:31
DX: L60.0 Ingrowing nail (principal); J45.909 Unspecified asthma, uncomplicated; K21.9 Gastro-esophageal reflux disease without esophagitis; G89.29 Other chronic pain; Z88.2 Allergy status to sulfonamides
CPT/HCPCS: 99283

== ENCOUNTER 2020-08-13 17:39 | Emergency (ER) | payer MEDICARE, MEDICAID ==
[~2020-08-13] VITALS: Ht 162.6 cm; Wt 60.0 kg
[~2020-08-13 17:39] MED LIST changes: +CLIN300C9 PO
[2020-08-13 17:54] VITALS: BP 133/86
[2020-08-13] MEDS ORDERED: DEXAMETHASONE SOD PHOS 20 MG/5 ML VIAL. PO ONE (18:30)
[2020-08-13] MEDS ORDERED: KETOROLAC 60 MG/2 ML VIAL. IM ONE (18:30)
--- NOTE | 2020-08-13 18:32 | ED.ADGEN ---
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 Patient states for the past week she has had worsening body aches, cough productive of white phlegm, sore throat, and occasional episodes of vomiting and diarrhea. Patient states that started about 1 week ago with sneezing fits. She has not had her Covid vaccine and denies any sick contacts. Patient is a smoker but denies any pulmonary issues. Took Benadryl couple of days ago today. Is unsure if she had a fever. Patient was treated for a toe infection with clindamycin and tramadol about 1 week ago. Review of Systems: Review of Systems: All other systems within normal limits except for as noted in the HPI Current Medications: Current Medications Medications (Trade) Dose Ordered Sig/Deborah Start Time Stop Time Status Last Admin Dose Admin Dexamethasone Sodium Phosphate (Decadron) 10 mg 1X ONCE 08/13/20 18:30 08/13/20 18:43 DC 08/13/20 19:35 10 MG Ketorolac Tromethamine (Toradol Im) 60 mg 1X ONCE 08/13/20 18:30 08/13/20 18:43 DC 08/13/20 19:35 60 MG Allergies: Allergies: Allergies Coded Allergies Type Severity Reaction Last Updated Verified Sulfa (Sulfonamide Antibiotics) Allergy Intermediate hives 08/07/13 Yes Physical Exam: PE: Constitutional: Well developed, well nourished, no acute distress, non-toxic appearance. [] HENT: Normocephalic, atraumatic, bilateral external ears normal, nose normal. Mild erythema posterior pharynx without exudate, no uvular shift, tonsils symmetric and noninflamed. Eyes: PERRLA, conjunctiva normal, no discharge. [] Neck: No rigidity, supple, no stridor. [] Cardiovascular: Regular rate and rhythm, brisk cap refill [] Lungs & Thorax: Non labored symmetric respirations, no tachypnea or respiratory distress [] Abdomen: Soft, nondistended. Skin: Warm, dry, no erythema, no rash. [] Back: Unremarkable Extremities: No deformities, range of motion grossly intact, no lower extremity edema [] Neurologic: Alert and oriented X 3, no focal deficits noted. [] Psychologic: Affect normal, judgement normal, mood normal. [] Current Patient Data: Labs: Laboratory Tests Test 08/13/20 18:38 08/13/20 18:47 Urine Collection Type Unknown Urine Color Yellow Urine Clarity Cloudy Urine pH 6.5 (<5.0-8.0) Urine Specific [place] >=1.030 (1.000-1.030) Urine Protein Negative mg/dL (NEG-TRACE) Urine Glucose (UA) Negative mg/dL (NEG) Urine Ketones (Stick) 15 mg/dL (NEG) Urine Blood Negative (NEG) Urine Nitrite Negative (NEG) Urine Bilirubin Small (NEG) Urine Urobilinogen Dipstick 1.0 mg/dL (0.2 mg/dL) Urine Leukocyte Esterase Negative (NEG) Urine RBC 0 /HPF (0-2) Urine WBC Occ /HPF (0-4) Urine Squamous Epithelial Cells Mod /LPF Urine Bacteria Few /HPF (0-FEW) Urine Mucus Marked /LPF POC Urine HCG, Qualitative Hcg negative (Negative) Vital Signs: Vital Signs Date Time Temp Pulse Resp B/P (MAP) Pulse Ox O2 Delivery O2 Flow Rate FiO2 08/13/20 17:54 98.2 93 16 133/86 (102) 100 Room Air 98.2 EKG: EKG: [] Heart Score: C/O Chest Pain: No Risk Factors: Risk Factors: DM, Current or recent (<one month) smoker, HTN, HLP, family history of CAD, obesity. Risk Scores: Score 0 - 3: 2.5% MACE over next 6 weeks - Discharge Home Score 4 - 6: 20.3% MACE over next 6 weeks - Admit for Clinical Observation Score 7 - 10: 72.7% MACE over next 6 weeks - Early Invasive Strategies Radiology/Procedures: Radiology/Procedures: [facility] [address] [place], [place] [id number] IMAGING REPORT Signed PATIENT: MATTHEW CHOI ACCOUNT: [id number] : 1990 LOCATION: ER AGE: 30 SEX: F EXAM STATUS: REG ER ORD. PHYSICIAN: WILLIAM ALVARADO MD REASON: PUI PROCEDURE: CHEST AP ONLY EXAM: CHEST 1 VIEW History: Fever COMPARISON: 08/11/2017 TECHNIQUE: Single portable radiograph of the chest FINDINGS: The cardiac silhouette is unremarkable. The lungs are clear bilaterally. The costophrenic sulci are clear and well demarcated. IMPRESSION: No radiographic evidence of an acute cardiopulmonary process. Electronically signed by: Lev Crockett MD (08/13/2020 7:38 PM) [id number] DICTATED and SIGNED BY: LEV CROCKETT MD DATE: 08/13/20 [id number] [] Course & Med Decision Making: Course & Med Decision Making Pertinent Labs and Imaging studies reviewed. (See chart for details) [] Dragon Disclaimer: Dragon Disclaimer: This electronic medical record was generated, in whole or in part, using a voice recognition dictation system. Departure Departure Impression: Primary Impression: Upper respiratory infection Additional Impression: Person under investigation for COVID-19 Disposition: 01 HOME / SELF CARE / HOMELESS Condition: STABLE Referrals: NANDO CORDERO MD (PCP) Additional Instructions: Take [id number] cold medicine that matches her symptoms. You have been tested for or diagnosed with COVID-19. It is an infection caused by a new type of coronavirus. COVID-19 will cause cold-like or mild flu symptoms in most. It can cause more severe symptoms like problems breathing in some. There is no treatment for COVID-19. The body will clear the infection over time. Self-care will help to ease discomfort. Steps to Take: Self-Care Rest as needed. Healthy habits may help you feel better. Steps include: Choose healthy foods including fruits and vegetables. Drink water throughout the day. Get plenty of sleep each night. If you smoke, try to quit. It may ease breathing. Avoid alcohol. Keep Others Healthy The virus can spread to others. Droplets are released every time you sneeze or cough. The droplets can get into the mouth, nose, or eyes of people near you and lead to infection. To lower the chances of spreading COVID-19 to others: Stay at home until your doctor has said it is safe to leave. If you tested positive this will mean staying isolated until both of the following are true: At least 7 days have passed since the start of illness. You are free of fever for at least 72 hours without the use of medicine. During this time: - Avoid public areas, events, or transportation. Do not return to work or school until your doctor has said it is safe to do so. - Call ahead if you need to go to a medical center. Let them know you may have COVID-19. It will help them guide you where to go. They may also ask you to wear a facemask when you come to the office. - If you call for emergency medical services, let them know you may have COVID- 19. While at home: - Try to avoid close contact with others. Stay about 6 feet away. - If possible, spend most of your time in a separate room from others. - Use a face mask if you will be in close contact with others such as sharing a room or vehicle. - Have someone wipe down common surfaces in the home. Use household upholstery technician every day on areas like doorknobs, counters, or sinks. - Cough or sneeze into a tissue. Throw the tissue away right after use. If a tissue is not available, cough or sneeze into your elbow. - Wash your hands often. Wash them after sneezing or coughing. Use soap and water and wash for at least 20 seconds. Alcohol based hand brick cleaner can be used if soap and water is not available. - Do not prepare food for others. Avoid sharing personal items like forks, spoons, or toothbrushes. - Avoid close contact with pets while you are sick. There is no evidence of the virus passing to pets. This is a safety step until more is known about this virus. Isolation can be frustrating. Social interaction can help. Keep in touch with friends and family through phone and tech options. You can still interact with others in your home, just keep a safe distance of about 6 feet. Follow-up: Your doctors office will check in with you to see if there are any changes in your health. You may be asked to keep track of symptoms to share with them. They will also let you know when you are clear to be in public again. Problems to Look Out For: Contact your doctor if your recovery is not going as you expect. Get emergency care if you have problems such as: - Trouble breathing - Nonstop chest pain or pressure - Changes in awareness, confusion, or problems waking - Lips or face have bluish color - Worsening of symptoms If you think you have an emergency, call for emergency medical services right away. As taken from [facility] Problem Qualifiers WILLIAM ALVARADO MD Aug 13, 2020 18:32
[2020-08-13 18:55] LABS: BILIRUBIN,URINE SMALL (NEG); CLARITY,URINE CLOUDY; COLOR,URINE YELLOW; NITRITE,URINE NEGATIVE (NEG); PH,URINE 6.5 (<5.0-8.0); PROTEIN,URINE NEGATIVE (NEG-TRACE)
[2020-08-13 19:01] LABS: BACTERIA,URINE FEW /HPF (0-FEW)
[2020-08-13 19:02] LABS: RBC,URINE 0 /HPF (0-2); WBC,URINE OCC /HPF (0-4)
--- NOTE | 2020-08-13 19:41 | RAD ---
EXAM: CHEST 1 VIEW History: Fever COMPARISON: 08/11/2017 TECHNIQUE: Single portable radiograph of the chest FINDINGS: The cardiac silhouette is unremarkable. The lungs are clear bilaterally. The costophrenic sulci are clear and well demarcated. IMPRESSION: No radiographic evidence of an acute cardiopulmonary process. Electronically signed by: Lev Crockett MD (08/13/2020 7:38 PM) [id number]
--- NOTE | 2020-08-15 09:22 | NUR ---
IP: Informed pt of negative COVID test. Pt verbalized understanding.
== END 2020-08-13 20:19 | disposition home or self-care (01) ==
LOC: ER 17:39
DX: J06.9 Acute upper respiratory infection, unspecified (principal); Z20.822 Contact with and (suspected) exposure to COVID-19; K21.9 Gastro-esophageal reflux disease without esophagitis; J45.909 Unspecified asthma, uncomplicated; Z88.2 Allergy status to sulfonamides
CPT/HCPCS: 71045; 81001; 81025; 96372; 99284; J1100; J1885; U0003; U0005; 99283

== ENCOUNTER 2020-08-21 21:22 | Emergency (ER) | payer MEDICARE, MEDICAID ==
[~2020-08-21] VITALS: Ht 177.8 cm; Wt 54.5 kg
[2020-08-21 22:53] LABS: BASO # 0.1 x10^3/uL (0.0-0.2); BASO % 1 % (0-3); EOS # 0.4 x10^3/uL (0.0-0.7); EOS % 5 % (0-3); HEMATOCRIT 38.6 % (36.0-47.0); HEMOGLOBIN 13.5 g/dL (12.0-15.5); LYMPH # 3.1 x10^3/uL (1.0-4.8); LYMPH % 39 % (24-48); MEAN CORPUSCULAR HEMOGLOBIN 33 pg (25-35); MEAN CORPUSCULAR HGB CONC 35 g/dL (31-37); MEAN CORPUSCULAR VOLUME 95 fL (79-100); MONO # 0.7 x10^3/uL (0.0-1.1); MONO % 9 % (0-9); NEUT # 3.8 x10^3/uL (1.8-7.7); NEUT % 46 % (31-73); PLATELET COUNT 315 x10^3/uL (140-400); RED BLOOD COUNT 4.08 x10^6/uL (3.50-5.40); RED CELL DISTRIBUTION WIDTH 12.2 % (11.5-14.5); WHITE BLOOD COUNT 8.2 x10^3/uL (4.0-11.0)
[2020-08-21 23:03] LABS: CALCIUM 8.4 mg/dL (8.5-10.1); CREATININE 0.9 mg/dL (0.6-1.0); GFR 73.5; POTASSIUM 4.2 mmol/L (3.5-5.1)
[2020-08-21 23:06] LABS: PREG TEST PT QUAL NEGATIVE (NEG)
[2020-08-21] MEDS ORDERED: DEXAMETHASONE SOD PHOS 20 MG/5 ML VIAL. IV ONE (23:15)
[2020-08-21] MEDS ORDERED: IPRATRPIUM/ALBUTEROL 0.5/2.5MG 3 ML NEBU. NEB ONE (23:15)
[2020-08-21] MEDS ORDERED: MAGNESIUM SULFATE 2GM 50 ML IV ONE (23:15)
--- NOTE | 2020-08-21 23:25 | RAD ---
XR CHEST 1V History: Reason: cough / Spl. Instructions: / History: Comparison: August 13, 2020 Findings: No consolidation or pleural effusion. Normal heart size. No pneumothorax. Impression: 1. No acute cardiopulmonary process. Electronically signed by: Justus Burris DO (08/21/2020 11:23 PM) [facility]
--- NOTE | 2020-08-21 23:35 | RAD ---
XR RT TOE 2+ VIEWS History: Reason: right toe infection ucg 10:30 / Spl. Instructions: / History: Technique: PA view of the foot and 2 additional views of the first digit Comparison: None. Findings: Hallux valgus alignment with soft tissue and bony bunion formation of the first metatarsal head. No d islocation. No fracture. No subcutaneous gas. No radiographic evidence of osteomyelitis. First digit soft tissue swelling. Impression: 1. First digit soft tissue swelling. No radiographic evidence of osteomyelitis. Electronically signed by: Justus Burris DO (08/21/2020 11:33 PM) [facility]
--- NOTE | 2020-08-22 00:28 | PHYS DOC ---
Past Medical History Past Medical History: Anxiety, Asthma, GERD Additional Past Medical Histor: ovarian cyst, cyst on spleen, CHRONIC EAR INFEC TIONS Past Surgical History: No Surgical History Additional Past Surgical Histo: left bone reconstruction; tubes in ears Smoking Status: Never Smoker Alcohol Use: None Drug Use: None General Adult EDM: Chief Complaint: MULTIPLE COMPLAINTS HPI: HPI: 30 yo F presents to the ed with 2 complaints. States her left toe has been red for 3-1/2 weeks, no relief with antibiotics. Was seen in the ED prior for this but has not followed up with a primary care physician or specialist. Also complains of persistent cough and she recently tested negative for Covid. Is a tobacco smoker but no formal history of COPD, asthma or lung disease. No recent surgeries. Review of Systems: Review of Systems: Constitutional: Denies fever or chills. [] Eyes: Denies change in visual acuity. [] HENT: Denies nasal congestion or sore throat. [] Respiratory: Denies hemoptysis or shortness of breath. [] Cardiovascular: Denies chest pain or hemoptysis GI: Denies nausea, vomiting, Integument: Denies bleeding or desquamation Neurologic: Denies headache or neck pain Endocrine: Denies polyuria or polydipsia. [] Lymphatic: Denies swollen glands. [] Psychiatric: Denies depression or anxiety. [] Heart Score: C/O Chest Pain: No Risk Factors: Risk Factors: DM, Current or recent (<one month) smoker, HTN, HLP, family history of CAD, obesity. Risk Scores: Score 0 - 3: 2.5% MACE over next 6 weeks - Discharge Home Score 4 - 6: 20.3% MACE over next 6 weeks - Admit for Clinical Observation Score 7 - 10: 72.7% MACE over next 6 weeks - Early Invasive Strategies Current Medications: Current Medications Medications (Trade) Dose Ordered Sig/Deborah Start Time Stop Time Status Last Admin Dose Admin Albuterol/ Ipratropium (Duoneb) 9 ml 1X ONCE 08/21/20 23:15 08/21/20 23:16 DC 08/21/20 23:17 9 ML Dexamethasone Sodium Phosphate (Decadron) 10 mg 1X ONCE 08/21/20 23:15 08/21/20 23:16 DC 08/21/20 23:39 10 MG Magnesium Sulfate 50 ml @ 25 mls/hr 1X ONCE 08/21/20 23:15 08/22/20 01:14 08/21/20 23:39 25 MLS/HR Allergies: Allergies: Allergies Coded Allergies Type Severity Reaction Last Updated Verified Sulfa (Sulfonamide Antibiotics) Allergy Intermediate hives 08/07/13 Yes Physical Exam: PE: Constitutional: no acute distress, non-toxic appearance, afebrile HENT: Normocephalic, atraumatic, Eyes: EOMI, conjunctiva normal, no discharge. Neck: Normal range of motion, supple, Cardiovascular: S1/2 present, regular rhythm Lungs & Thorax: Speaking in full sentences, bilateral equal chest rise, active dry cough in ED, moving air, slight inspiratory and expiratory wheezing Skin: Warm, dry, Extremities: erythema over proximal aspect of nail/matrix with no visible purulence under nail, actual nail is yellow in color Neurologic: Alert and oriented X 3, no focal deficits noted. [] Psychologic: Affect normal, judgement normal, mood normal. [] Current Patient Data: Labs: Laboratory Tests Test 08/21/20 22:43 White Blood Count 8.2 x10^3/uL (4.0-11.0) Red Blood Count 4.08 x10^6/uL (3.50-5.40) Hemoglobin 13.5 g/dL (12.0-15.5) Hematocrit 38.6 % (36.0-47.0) Mean Corpuscular Volume 95 fL (79-100) Mean Corpuscular Hemoglobin 33 pg (25-35) Mean Corpuscular Hemoglobin Concent 35 g/dL (31-37) Red Cell Distribution Width 12.2 % (11.5-14.5) Platelet Count 315 x10^3/uL (140-400) Neutrophils (%) (Auto) 46 % (31-73) Lymphocytes (%) (Auto) 39 % (24-48) Monocytes (%) (Auto) 9 % (0-9) Eosinophils (%) (Auto) 5 % (0-3) H Basophils (%) (Auto) 1 % (0-3) Neutrophils # (Auto) 3.8 x10^3/uL (1.8-7.7) Lymphocytes # (Auto) 3.1 x10^3/uL (1.0-4.8) Monocytes # (Auto) 0.7 x10^3/uL (0.0-1.1) Eosinophils # (Auto) 0.4 x10^3/uL (0.0-0.7) Basophils # (Auto) 0.1 x10^3/uL (0.0-0.2) Sodium Level 141 mmol/L (136-145) Potassium Level 4.2 mmol/L (3.5-5.1) Chloride Level 106 mmol/L (98-107) Carbon Dioxide Level 29 mmol/L (21-32) Anion Gap 6 (6-14) Blood Urea Nitrogen 9 mg/dL (7-20) Creatinine 0.9 mg/dL (0.6-1.0) Estimated GFR (Cockcroft-Gault) 73.5 Glucose Level 83 mg/dL (70-99) Calcium Level 8.4 mg/dL (8.5-10.1) L Magnesium Level 2.0 mg/dL (1.8-2.4) Serum Test, Qualitative Negative (NEG) Laboratory Tests 08/21/20 22:43 Laboratory Tests 08/21/20 22:43 Vital Signs: Vital Signs Date Time Temp Pulse Resp B/P (MAP) Pulse Ox O2 Delivery O2 Flow Rate FiO2 08/21/20 23:22 99 Room Air 08/21/20 22:55 52 94/54 (67) 08/21/20 21:35 98.4 16 98.4 EKG: EKG: [] Radiology/Procedures: Radiology/Procedures: IMAGING REPORT Signed PATIENT: MATTHEW CHOI ACCOUNT: [id number] : 1990 LOCATION: ER AGE: 30 SEX: F EXAM STATUS: REG ER ORD. PHYSICIAN: FRANCISCA LEDEZMA DO REASON: cough PROCEDURE: CHEST AP ONLY XR CHEST 1V History: Reason: cough / Spl. Instructions: / History: Comparison: August 13, 2020 Findings: No consolidation or pleural effusion. Normal heart size. No pneumothorax. Impression: 1. No acute cardiopulmonary process. Electronically signed by: Justus Burris DO (08/21/2020 11:23 PM) [facility] DICTATED and SIGNED BY: JUSTUS BURRIS DO DATE: 08/21/20 [id number] IMAGING REPORT Signed PATIENT: MATTHEW CHOI ACCOUNT: [id number] : 1990 LOCATION: ER AGE: 30 SEX: F EXAM STATUS: REG ER ORD. PHYSICIAN: FRANCISCA LEDEZMA DO REASON: right toe infection ucg 10:30 PROCEDURE: TOES RIGHT XR RT TOE 2+ VIEWS History: Reason: right toe infection ucg 10:30 / Spl. Instructions: / History: Technique: PA view of the foot and 2 additional views of the first digit Comparison: None. Findings: Hallux valgus alignment with soft tissue and bony bunion formation of the first metatarsal head. No dislocation. No fracture. No subcutaneous gas. No radiographic evidence of osteomyelitis. First digit soft tissue swelling. Impression: 1. First digit soft tissue swelling. No radiographic evidence of osteomyelitis. Electronically signed by: Justus Burris DO (08/21/2020 11:33 PM) [facility] DICTATED and SIGNED BY: JUSTUS BURRIS DO DATE: 08/21/20 [id number] Course & Med Decision Making: Course & Med Decision Making Pertinent Labs and Imaging studies reviewed. (See chart for details) COVID-19 CRITERIA: The patient was evaluated during the global COVID-19 pandemic, and that diagnosis was suspected/considered upon their initial presentation. Their evaluation, treatment and testing was consistent with current guidelines for patients who present with complaints or symptoms that may be related to COVID-19. Concern for chronic infected left ingrown toenail, chronic paronychia, suspect possible fungal coinfection, has failed outpatient antibiotics, has sulfa allergy. Is nontoxic-appearing. Toe x-ray with no findings of osteomyelitis. Chest x-ray unremarkable. Patient initially on arrival with poor aeration and audible wheezing. Was treated for likely early COPD exacerbation with no formal COPD diagnosis. Will prescribe steroids, Flovent and albuterol. Covid test pending. Will discharge home with strict ED return precautions were given for difficulties breathing, increased work of breathing, rash, fever, worsening toe pain, chest pain, syncope neurologic deficits. Encouraged urgent outpatient foll ow-up with PMD, podiatry and pulmonology. Life-threatening processes were considered but are low suspicion at this time, given history, physical exam and ED workup. Pt was educated on all prescription medications and adverse effects. All patient's questions were answered and pt was stable at time of discharge. Life/limb-threatening differential includes but is not limited to, foreign body, infection/sepsis, congestive heart failure or pulmonary edema, lung cancer intrathoracic mass, bronchoconstriction, asthma/COPD/lung disease exacerbation, pneumothorax or hemothorax, pulmonary emboli, autoimmune/neurologic disease or toxidrome. I spoken with the patient and her caregivers. I explained the patient's condition, diagnoses and treatment plan based on the information available to me at this time. I have answered the patient and her caregiver's questions and addressed any concerns. The patient and her caregivers have a good understanding of patient's diagnosis, condition and treatment plan as can be expected at this point. Vital signs have been stable. Patient's condition is stable and appropriate for discharge from the emergency department. Patient will pursue further outpatient evaluation with primary care physician or other designated or consulting physician as outlined in the discharge instructions. The patient and/or caregivers are agreeable to this plan of care and follow-up instructions have been explained in detail. The patient and/or caregivers have received these instructions in written form and have expressed an understanding of the discharge instructions. The patient and/or caregivers are aware that any significant change of condition or worsening of symptoms should prompt immediate return to this or the closest emergency department or call to 911. [place] Disclaimer: [place] Disclaimer: This electronic medical record was generated, in whole or in part, using a voice recognition dictation system. Departure Departure Impression: Primary Impression: Ingrown toenail of left foot with infection Additional Impressions: Person under investigation for COVID-19 Suspected chronic obstructive pulmonary disease based on initial evaluation Disposition: HOME / SELF CARE / HOMELESS Condition: STABLE Referrals: NANDO CORDERO MD (PCP) follow up in 2-3 days for reevaluation Patient Instructions: Chronic Obstructive Pulmonary Disease Exacerbation, Infected Ingrown Toenail Additional Instructions: FOLLOW UP WITH PODIATRY: For definitive management in the next 5 days-please call on Tuesday to make appointment Podiatric Surgery [address] [address] EMERGENCY DEPARTMENT GENERAL DISCHARGE INSTRUCTIONS Thank you for coming to [facility] Emergency Department (ED) today and trusting us with you care. We trust that you had a positive experience in our Emergency Department. If you wish to speak to the department management, you may call the Director at [phone]. YOUR FOLLOW UP INSTRUCTIONS ARE FOLLOWS: 1. Do you have a private Doctor? If you do not have a private doctor, please ask for a resource list of physicians or clinics that may be able to assist you with follow up care. 2. The Emergency Physicain has interpreted your x-rays. The X-Ray specialist will also review them. If there is a change in the findings, you will be notified in 48 hours when at all possible. 3. A lab test or culture has been done, your results will be reviewed and you will be notified if you need a change in treatment. ADDITIONAL INSTRUCTIONS AND INFORMATION: 1. Your care today has been supervised by a physician who is specially trained in emergency care. Many problems require more than one evaluation for a complete diagnosis and treatment. We recommend that you schedule your follow up appointment as recommended to ensure complete treatment of you illness or injury. If you are unable to obtain follow up care and continue to have a problem, or if your condition worsens, we recommend that you return to the ED. 2. We are not able to safely determine your condition over the phone nor are we able to give sound medical advice over the phone. For these safety reasons, if you call for medical advice we will ask you to come to the ED for further evaluation. 3. If you have any questions regarding these discharge instructions please call the ED at [phone]. SAFETY INFORMATION: In the interest of safety, wellness, and injury prevention; we encourage you to wear your sealbelt, if you smoke; quite smoking, and we encourage family to use a protective helmet for bicycling and other sporting events that present an increased risk for head injury. IF YOUR SYMPTOMS WORSEN OR NEW SYMPTOMS DEVELOP, OR YOU HAVE CONCERNS ABOUT YOUR CONDITION; OR IF YOUR CONDITION WORSENS WHILE YOU ARE WAITING FOR YOUR FOLLOW UP APPOINTMENT; EITHER CONTACT YOUR PRIMARY CARE DOCTOR, THE PHYSICIAN WHOSE NAME AND NUMBER YOU WERE GIVEN, OR RETURN TO THE ED IMMEDIATELY. Scripts Albuterol Sulfate (VENTOLIN HFA INHALER) 18 Gm Hfa.aer.ad 2 PUFF INH QID for FOR ASTHMA, #1 INHALER 0 Refills Prov: FRANCISCA LEDEZMA DO 08/22/20 Fluticasone Propionate (FLOVENT 44MCG HFA) 10.6 Gm Aer.w.adap 2 PUFF IH BID for 30 Days, #1 INHALER 0 Refills Prov: FRANCISCA LEDEZMA DO 08/22/20 Prednisone (PREDNISONE) 50 Mg Tablet 1 TAB PO DAILY, #5 TAB Prov: FRANCISCA LEDEZMA DO 08/22/20 Doxycycline Hyclate (DOXYCYCLINE HYCLATE) 100 Mg Capsule 1 CAP PO BID for 14 Days, #28 CAP Prov: FRANCISCA LEDEZMA DO 08/22/20 FRANCISCA LEDEZMA DO Aug 22, 2020 00:28
[2020-08-22 02:15] VITALS: BP 126/72
[2020-08-22] MEDS ORDERED: PRED50TA PO (03:09)
[2020-08-22] MEDS ORDERED: DOXY100C2 PO (03:09)
[2020-08-22] MEDS ORDERED: VENTOLIN HFA18 GM INH (03:10)
[2020-08-22] MEDS ORDERED: FLUT10.6 IH (03:10)
--- NOTE | 2020-08-22 12:16 | NUR ---
IP: Attempted to contact pt concerning covid results. Father stated he would have pt return my call.
--- NOTE | 2020-08-22 12:28 | NUR ---
IP: Pt returned the call, informed her of the negative covid test. Pt and her father verbalized understanding.
== END 2020-08-22 03:50 | disposition home or self-care (01) ==
LOC: ER 21:22
DX: L60.0 Ingrowing nail (principal); Z20.822 Contact with and (suspected) exposure to COVID-19; K21.9 Gastro-esophageal reflux disease without esophagitis; J45.909 Unspecified asthma, uncomplicated; G89.29 Other chronic pain; Z88.2 Allergy status to sulfonamides
CPT/HCPCS: 36415; 71045; 73660; 80048; 81025; 83735; 84703; 85025; 96365; 96366; 96375; 99285; J1100; J3475; U0003; U0005

== ENCOUNTER 2020-12-26 12:26 | Emergency (ER) | payer MEDICARE, MEDICAID ==
[~2020-12-26] VITALS: Ht 154.9 cm; Wt 50.0 kg
[~2020-12-26 12:26] MED LIST changes: +CLIN-94 PO; -CLIN150C15 PO; +CLIN150C16 PO; -CLIN300C9 PO; +DOXY100C3 PO; +FLUT10.6 IH
[2020-12-26 12:45] VITALS: BP 133/79
--- NOTE | 2020-12-26 13:26 | PHYS DOC ---
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 She states she has had bronchitis and pneumonia in the past. She states she does have allergies. She denies fever, nausea, vomiting, diarrhea, abdominal pain, chest pain, shortness of breath, headache, dizziness, urinary symptoms, back pain. Rating her pain at a 7 out of 10. (ARCADIO UREÑA [employer]) Review of Systems: Review of Systems: Constitutional: Denies fever or chills. [] Eyes: Denies change in visual acuity. [] HENT: Denies nasal congestion or +sore throat. [] Respiratory: + Intermittent cough or denies shortness of breath. [] Cardiovascular: Denies chest pain or edema. [] GI: Denies abdominal pain, nausea, vomiting, bloody stools or diarrhea. [] : Denies dysuria. [] Musculoskeletal: Denies back pain or joint pain. [] Integument: Denies rash. [] Neurologic: Denies headache, focal weakness or sensory changes. [] Endocrine: Denies polyuria or polydipsia. [] Lymphatic: Denies swollen glands. [] Psychiatric: Denies depression or anxiety. [] (ARCADIO UREÑA [employer]) Heart Score: C/O Chest Pain: No (ARCADIO UREÑA [employer]) Current Medications: Current Medications Medications (Trade) Dose Ordered Sig/Deborah Start Time Stop Time Status Last Admin Dose Admin Dexamethasone (Decadron) 10 mg 1X ONCE 12/26/20 13:30 12/26/20 13:31 12/26/20 13:18 10 MG (ARCADIO UREÑA [employer]) Allergies: Allergies: Allergies Coded Allergies Type Severity Reaction Last Updated Verified Sulfa (Sulfonamide Antibiotics) Allergy Intermediate hives 08/07/13 Yes (ARCADIO UREÑA APRN) Physical Exam: PE: Constitutional: Well developed, well nourished, no acute distress, non-toxic appearance. [] HENT: Normocephalic, atraumatic, bilateral external ears normal, oropharynx moist, no oral exudates, nose normal. Throat reddened without exudates or swelling. No trismus. Uvula midline. [] Eyes: PERRLA, EOMI, conjunctiva normal, no discharge. [] Neck: Normal range of motion, no tenderness, supple, no stridor. [] Cardiovascular:Heart rate regular rhythm, no murmur [] Lungs & Thorax: Bilateral breath sounds clear to auscultation [] Abdomen: Bowel sounds normal, soft, no tenderness, no masses, no pulsatile masses. [] Skin: Warm, dry, no erythema, no rash. [] Back: No tenderness, no CVA tenderness. [] Extremities: No tenderness, no cyanosis, no clubbing, ROM intact, no edema. [] Neurologic: Alert and oriented X 3, normal motor function, normal sensory function, no focal deficits noted. [] Psychologic: Affect normal, judgement normal, mood normal. [] (ARCADIO UREÑA APRN) Current Patient Data: Vital Signs: Vital Signs Date Time Temp Pulse Resp B/P (MAP) Pulse Ox O2 Delivery O2 Flow Rate FiO2 12/26/20 12:45 98.2 88 18 133/79 (97) 100 Room Air 98.2 (ARCADIO UREÑA APRN) EKG: EKG: [] (ARCADIO UREÑA APRN) Radiology/Procedures: Radiology/Procedures: [] Impression: [facility] [id number] [place], [place] [id number] IMAGING REPORT Signed PATIENT: MATTHEW CHOI ACCOUNT: [id number] : 1990 LOCATION: ER AGE: 30 SEX: F EXAM STATUS: REG ER ORD. PHYSICIAN: ARCADIO UREÑA APRN REASON: cough PROCEDURE: PORTABLE CHEST 1V AP view was taken of the chest. Lungs are clear. Heart is normal in size. There is no pleural effusion. IMPRESSION: 1. No acute chest disease. Electronically signed by: Kevin Shirley MD (12/26/2020 1:31 PM) [facility] DICTATED and SIGNED BY: KEVIN SHIRLEY MD DATE: 12/26/20 [id number] (ARCADIO UREÑA APRN) Course & Med Decision Making: Course & Med Decision Making Pertinent Labs and Imaging studies reviewed. (See chart for details) See HPI. Alert and oriented x4. Ambulatory steady gait. Speaks in full clear sentences. Throat is reddened but there is no exudates or swelling. No trismus. Uvula midline. Patient has a dry intermittent cough. Lungs are clear all station all lobes. Vital signs within normal limits. Patient is given a dose of dexamethasone in the ED. Chest x-ray shows no acute findings. Patient is given a prescription for Tessalon Perles and inhaler in case it is needed. [] (ARCADIO UREÑA APRN) Dragon Disclaimer: Dragon Disclaimer: This electronic medical record was generated, in whole or in part, using a voice recognition dictation system. (ARCADIO UREÑA APRN) Departure Departure Impression: Primary Impression: Sore throat Additional Impression: Cough Disposition: 01 HOME / SELF CARE / HOMELESS Condition: STABLE Referrals: NANDO CORDERO MD (PCP) Patient Instructions: Cough, Adult, Sore Throat Additional Instructions: Follow-up with your primary care provider. Drink plenty of fluids. Take medication as prescribed. If you begin having high fever or cannot swallow your saliva return to the emergency room. Scripts Cetirizine Hcl (ZYRTEC) 10 Mg Tablet 1 TAB PO DAILY, #30 TAB Prov: ARCADIO UREÑA APRN 12/26/20 Benzonatate (TESSALON PERLE) 100 Mg Capsule 1 CAP PO TID, #21 CAP Prov: ARCADIO UREÑA APRN 12/26/20 Albuterol Sulfate (PROAIR HFA INHALER) 8.5 Gm Hfa.aer.ad 1 PUFF INH PRN Q6HRS PRN for SHORTNESS OF BREATH, #1 EACH 0 Refills Prov: ARCADIO UREÑA APRN 12/26/20 Attending Signature Attending Signature I have reviewed the PA[employer]'s note and plan of care. I was available for consultation as needed during the patient's visit in the emergency department. I agree with the clinical impression, plan, and disposition. (FRANCOISE ECHAVARRIA DO) ARCADIO UREÑA APRN Dec 26, 2020 13:26 FRANCOISE ECHAVARRIA DO Dec 27, 2020 06:48
[2020-12-26] MEDS ORDERED: DEXAMETHASONE 4 MG TABLET PO ONE (13:30)
--- NOTE | 2020-12-26 13:33 | RAD ---
AP view was taken of the chest. Lungs are clear. Heart is normal in size. There is no pleural effusio n. IMPRESSION: 1. No acute chest disease. Electronically signed by: Kevin Shirley MD (12/26/2020 1:31 PM) [facility]
[2020-12-26] MEDS ORDERED: ALBU2.5V8 INH (13:43)
[2020-12-26] MEDS ORDERED: BENZ100C PO (13:43)
[2020-12-26] MEDS ORDERED: CETI10TA74 PO (13:44)
--- NOTE | 2020-12-27 13:19 | NUR ---
IP: Informed pt of negative covid test. Pt verbalized understanding.
== END 2020-12-26 14:03 | disposition home or self-care (01) ==
LOC: ER 12:26
DX: J02.9 Acute pharyngitis, unspecified (principal); R05.9 Cough, unspecified; J45.909 Unspecified asthma, uncomplicated; K21.9 Gastro-esophageal reflux disease without esophagitis; Z20.822 Contact with and (suspected) exposure to COVID-19; Z88.2 Allergy status to sulfonamides
CPT/HCPCS: 71045; 87070; 87880; 99284; U0003; U0005